=== PATIENT | male | born 1965 | race African-American/Black ===

== ENCOUNTER 2024-10-02 13:39 | Emergency (ER) | payer MEDICARE, SELFPAY ==
--- OUTSIDE RECORDS SUMMARY | 2024-08-11 14:40 | XMS_ITS | Encounter Summary ---
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 [address] [place] [address] Yi Arteaga APRN [address] [place] [address] Type 2 diabetes mellitus with other specified complication, unspecified whether jail insulin use (CMS/HCC) (Primary Dx); Neuropathy; Hypertension, unspecified type; Hyperlipidemia, unspecified hyperlipidemia type; Obesity (BMI 30-39.9) Social History Tobacco Use Types Packs/Day Years Used Date Smoking Tobacco: Never Passive Smoke Exposure: Never Smokeless Tobacco: Never Alcohol Use Standard Drinks/Week Comments Never 0 (1 standard drink = 0.6 oz pur e alcohol) social Humiliation, Afraid, Rape, and Kick questionnair e Answer Date Recorded Within the last year, have y ou been afraid of your partner or ex-partner? No 02/17/2023 Within the last year, have y ou been humiliated or emotionally abused in other ways by your partner or ex-partner? No Within the last year, have y ou been kicked, hit, slapped, or otherwise physically hurt by your partner or ex-partner? No 02/17/2023 Within the last year, have y ou been raped or forced to have any kind of sexual activity by your partner or ex-partner? No 02/17/2023 PHQ-2 Answer Date Recorded Patient Health Questionnaire-2 Score 1 08/11/2024 Hunger Vital Sign Answer Date Recorded Within the past 12 months, y ou worried that your food would run out before you got the money to buy more. Never true 02/18/20 23 Within the past 12 months, t he food you bought just didn't last and you didn't have money to get more. Never true 02/17/2023 PRAPARE - Transportation Answer Date Re corded In the past 12 months, has l ack of transportation kept you from medical appointments or from getting medications? No 02/05 In the past 12 months, has l ack of transportation kept you from meetings, work, or from getting things needed for daily living? No 02/17/2023 Housing Stability Vital Sign Answer Barry e Recorded In the last 12 months, was t here a time when you were not able to pay the mortgage or rent on time? No 02/17/2023 In the last 12 months, how many places have you lived? 1 02/17/2023 In the last 12 months, was t here a time when you did not have a steady place to sleep or slept in a penitentiary (including now)? No 02/17/2023 CAGE ASSESSMENT Answer Date Recorded Cage unable to access Not on file 02/13/2023 Cage max number of drinks Not on file 2022 Cage Beverages a week Not on file 02/13/2023 Have you ever felt you should CUT down on your d rinking? 0 02/13/2023 Have you been ANNOYED by people criticizing your drinking? 0 02/13/2023 Have you felt GUILTY about your drinking? 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 0 02/13/2023 CAGE Questionnaire Score 0 023 Utilities Answer Date Recorded In the past 12 months has th [employer], gas, oil, or water company threatened to shut off services in your home? No 02/17/2023 PHQ-2A Answer Date Recorded Patient Health Questionnaire-2 Score 0 02/25/2023 Sex and Gender Information Value Date Recorded Sex Assigned at Not on file Legal Sex Male 6:34 PM EDT Gender Identity Male 02/20/2022 1:39 PM EST Sexual Orientation Not on file documented as of this encounter Last Filed Vital Signs Vital Sign Reading Time Taken Comments Blood Pressure 121/82 08/11/2024 1:38 PM EDT Pulse 80 08/11/2024 1:38 PM EDT Temperature - - Respiratory Rate - - Oxygen Saturation - - Inhaled Oxygen Concentration - - Weight 119 kg (263 lb 3.7 oz) 08/11/2024 1:38 PM EDT Height 175.3 cm (5' 9 ) 08/11/2024 1:38 PM EDT Body Mass Index 38.87 08/11/2024 1:38 PM EDT documented in this encounter Functional Status * Over the past 2 weeks, how often have you been bothered by any of the following problems? Question Answer Date of Assessment Author Little interest or pleasure in doing things Not at all 08/11/2024 1:42 PM EDT Amaris Velasuqez Feeling down, depressed, or hopeless Several days 08/11/2024 1:42 PM EDT Amaris Velasquez Patient Health Questionnaire -2 Score 1 08/11/2024 1:42 PM EDT Amaris Velasquez documented as of this encounter Miscellaneous Notes * Patient Instructions - Yi Arteaga, BLOW MOLD TECHNICIAN - 08/11/2024 2:40 PM EDT Lab Results Component Value Date HGBA1C 9.6 08/11/2024 CHANGES: -start metformin 500mg tab taking 1 tab daily with food x 1 week, then increase to 1 tab twice a day with food - check blood glucose daily, alternating AM and PM, before meals - call the educators (number below) in 2 weeks with your readings or can send through my chart - call the diabetes education team with any questions or concerns [phone] * Progress Notes - Yi Arteaga APRN - 08/11/2024 2:40 PM EDT Subjective Darrin Vargas is a 58 y.o. AA male who presents to clinic for a follow up evaluation of Diabetes Mellitus Type 2. Patient was diagnosed with DM about 25 years ago. Current symptoms/problems includehyperglycemia. 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 Since RNY he was able to stop all DM meds and was following up with PCP, however, noticed BG has been r unning high A1c 9.6% today from 6.8% at last visit -> 9%-> 8.8% on 03/28/22 - not currently on any DM medications Previously failed DM therapy: DPP4/GLP: avoid due to history of pancreatitis, glipizide: reports lead to pancreatitis?, Jardiance: had several infections and was stopped in 2014; unsure of sequence of events. Metformin and Basaglar- stopped after RNY - checking glucose 1-2 times a day. States AM 120-130 and evening after eating 170-180 - has had LOC with lows x1 several years ago that required hospitalization. Reports hypoawareness is intact Known diabetic complications: peripheral neuropathy, impotence, and cardiovascular disease 01/29/24 Cr 1.17 and GFR 71.4 Cardiovascular risk factors: advanced age (older than 55 for men, 65 for women), diabetes mellitus,dyslipidemia, family history of premature cardiovascular disease, hypertension, male gender, and obesity (BMI >= 30 kg/m2) - lost 70-80# after RNY in 12/2022 Is he on REAL inhibitor or angiotensin II receptor inder? Yes Is he on a StatinYes + Ezetimibe 01/29/24 TRG 103, LDL 36 Current diet: stopped drinking regular green tea about 1.5 weeks ago. Diet remains to be healthier choices, more salads and proteins Current exercise: no regular exercise Date of Last Eye Exam: Mar 2024- denies retinopathy Date of Last Foot Exam: deferred today, denies open areas What current meter are you using?: Intelipost devyn What pump type do you have?: na What type of sensor do you have?: na When was your last flu shot?: fall 2023 When did you have labs last?: 08/2022 The following portions of the chart were reviewed this encounter and updated as appropriate: Review of Systems Constitutional: Negative. HENT: Negative. Eyes: Negative. Respiratory: Negative. Cardiovascular: Negative. Gastrointestinal: Negative. Endocrine: Negative. See hpi Musculoskeletal: Negative. Skin: Negative. Psychiatric/Behavioral: Negative. Objective Physical Exam Constitutional: Appearance: Normal appearance. He is obese. HENT: Head: Normocephalic. Right Ear: External ear normal. Left Ear: External ear normal. Nose: Nose normal. Cardiovascular: Rate and Rhythm: Normal rate. Pulmonary: Effort: Pulmonary effort is normal. Musculoskeletal: General: Normal range of motion. Cervical back: Normal range of motion. Skin: General: Skin is warm and dry. Neurological: Mental Status: He is alert and oriented to person, place, and time. Psychiatric: Mood and Affect: Mood normal. Behavior: Behavior normal. Thought Content: Thought content normal. Judgment: Judgment normal. Lab Review Glucose, Plasma (mg/dL) Date Value 01/29/2024 145 (H) 07/31/2023 123 (H) 03/20/2023 127 (H) POCT Hemoglobin A1C Date Value 08/11/2024 9.6 % 01/13/2023 6.8 10/17/2022 9.0 % Hemoglobin A1c (%) Date Value 01/29/2024 8.0 (H) 07/31/2023 7.0 (H) CO2, Plasma (mmol/L) Date Value 01/29/2024 25 07/31/2023 26 03/20/2023 26 BUN, Plasma (mg/dL) Date Value 01/29/2024 14 07/31/2023 11 03/20/2023 9 Creatinine, Plasma (mg/dL) Date Value 01/29/2024 1.17 07/31/2023 1.04 03/20/2023 1.00 Assessment/Plan Diabetes Mellitus Type 2, is uncontrolled. A1c 9.6% today - continue with improved dietary choices Rx changes: -start metformin 500mg tab taking 1 tab daily with food x 1 week, then increase to 1 tab twice a day with food - check blood glucose daily, alternating AM and PM, before meals - call the educators ([phone]) in 2 weeks with your readings or can send through my chart - encouraged to check blood glucose daily, alternating AM and PM, before meals - eye exam and labs utd - follow up 3 months for chronic care management of diabetes # Neuropathy -stable - no reported open areas - monofilament due at follow up - encouraged daily foot checks - encouraged good blood glucose control to reduce risk of complication # HTN -stable -continue antihypertensives per PCP # HLD -controlled -continue statin # Obesity -BMI: 38.87 from 43.63 -> 48.2 -encouraged healthy diabetic diet and exercise as tolerated for optimal glycemic control The patient received dietary education and exercise education because they have an above normal BMI. - follow up with weight loss clinic as scheduled The following Diabetes education was reviewed: [x]SBGM to evaluate dose needs []Insulin coverage with carbohydrate intake []Site rotation [x] Exercise impact on glucose levels []Driving safety related to diabetes []Sick day management []Ketone testing [x]Over treatment of hypoglycemia [x] Hypoglycemia management [x]Call-in line use []Insulin pump pros and cons []Sensor home use []Pump class offerings []Tiffany phenomena []Somogyi effect [] Alcohol related to diabetes []Benefits of written records []Pre-meal Bolusing [x]Daily foot care [x] Healthy diet and regular exercise []Long-term complications related to poor diabetes management [] Injection timing related to changes in activity/exercise I personally spent a total of 25 minutes on this encounter. This time includes face to face with patient, counseling and discussion and/or coordination of care. Electronically signed by: Yi Arteaga APRN [facility] [address] [facility] [place]. [address] PHONE [phone] FAX: [phone] documented in this encounter Plan of Treatment Upcoming Encounters Date Type Department Care Team (Late st Contact Info) Description 11/22/2024 9:20 AM EDT Office Visit [facility] [address] [place] [address] Yi Arteaga APRN [address] [facility] [address] [place] [address] 12/28/2024 4:00 PM EDT Office Visit [facility] [place] [address] [place] [address] Sasha Rico MD [address] [place] [address] Scheduled Referrals Name Type Priority Associated Diagnoses Orde r Schedule Follow Up [facility] Outpatient Referral Routine Type 2 diabetes mellitus with other specified complication, unspecified whether jail insulin use ([facility]) Expected: 11/11/2024 (Approximate), Expires: 09/11/2025 documented as of this encounter Procedures Procedure Name Priority Date/Time Associated Diagnosis Comments POCT GLYCOSYLATED HEMOGLOBIN (HGB A1C) Routine 08/11/2024 1:49 PM EDT Type 2 diabetes mellitus with other specified complication, unspecified whether jail insulin use ([facility]) documented in this encounter Results * (ABNORMAL) POCT glycosylated hemoglobin (Hb A1C) (08/11/2024 1:49 PM EDT) POCT Hemoglobin A1C 9.6 <5.7% Non-Diabet ic % [facility] Kit Lot Number [id number] [facility] Kit Expiration Date 06/03 [facility] Blood Venous blood specimen / Unknown 08/11/2024 1:49 PM EDT us Yi Arteaga BLOW MOLD TECHNICIAN POINT OF CARE TEST ENTER/E DIT ORDERABLES Final Result Performing Organization Address City/State/[facility] Co de Phone Number [facility] [address] [place] [address] documented in this encounter Visit Diagnoses Diagnosis Type 2 diabetes mellitus with other specified complication, 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)- Primary Neuropathy Mononeuritis of unspecified site Hypertension, unspecified type Hyperlipidemia, unspecified hyperlipidemia type Obesity (BMI 30-39.9) documented in this encounter Additional Health Concerns Assessment Noted Time A fall risk assessment has been complete d for the patient 01/29/2024 8:56 AM EDT A Body Mass Index follow-up plan has been documented for the patient 08/17/2024 12:57 PM EDT documented as of this encounter Care Teams Assembler Dielectric Heater Relationship Specialty Start Date End Date Francisco Javier Cooley MD [address] [place] [address] PCP - General 08/18/20 documented as of this encounter
[2024-10-02] VITALS (12 sets, daily range): BP systolic 127–171; BP diastolic 78–107; PULSE 60–89; RESP 11–20; TEMP 37.1–37.2; O2SAT 97–100; BMI 39.1
--- NOTE | 2024-10-02 13:43 | ECG_ITS ---
APPROVED REPORT Exam: Resting ECG HR:82 bpm ECG Measurements Heart Rate 82 AXES WY 175 P 49 QRSd 109 QRS -6 QT 387 T 9 QTc 425 Conclusion SINUS RHYTHM POSSIBLE ANTERIOR MYOCARDIAL INFARCTION , OF INDETERMINATE AGE [30 ms Q WAVE IN V3/V4, OR R < 0.2 mV IN V4] No STEMI Electronically signed by : GISELLA DESOUZA, 10/05/2024 02:29:22
--- NOTE | 2024-10-02 14:16 | XR_ITS ---
PROCEDURE INFORMATION: Exam: XR Chest Exam date and time: 10/02/2024 2:24 PM Age: 58 years old Clinical indication: Pain; Other: Cp; Prior surgery; Surgery date: 6+ months; Surgery type: 2016 defib; Additional info: Chest pain TECHNIQUE: Imaging protocol: Radiologic exam of the chest. Views: 1 view. COMPARISON: CR XR CHEST 2V 02/13/2024 4:48 PM FINDINGS: Tubes, catheters and devices: Transvenous pacemaker lead in the heart Lungs: Unremarkable. No consolidation. Pleural spaces: Unremarkable. No pleural effusion. No pneumothorax. Heart/Mediastinum: Stable cardiac silhouette Bones/joints: Degenerative changes in the left glenohumeral joint. Stable IMPRESSION: No acute findings. No focal consolidation
--- OUTSIDE RECORDS SUMMARY | 2024-10-02 14:21 | XMS_ITS | Encounter Summary ---
Author Organization [facility] Address [address] [place] [address] Care Team Providers Care Topline Beading Machine Tender Name Role Phone Francisco Javier Cooley MD Primary Care Provider [phone] Reason for Visit * Reason Onset Date Comments HCN Clinical Concern/Question 08/26/2024 Encounter Details Date Type Department Care Team ([facility] Contact Info) Description 08/26/2024 Telephone [facility] [address] [place] [address] Yi Arteaga L, DESIGN DRAFTSMAN [address] [facility] [address] [place] [address] HCN Clinical Concern/Question Social History Tobacco Use Types Packs/Day Years [...] place to sleep or slept in a retirement (including now)? 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 0 02/13/2023 CAGE Questionnaire Score 0 023 Utilities Answer Date Recorded In the past 12 months has th e [facility], gas, oil, or water company threatened to shut off services in your home? No 02/17/2023 PHQ-2A Answer Date Recorded Patient Health Questionnaire-2 Score 0 02/25/2023 Sex and Gender Information Value Date Recorded Sex Assigned at Not on file Legal Sex Male 6:34 PM EDT Gender Identity Male 02/20/2022 1:39 PM EST Sexual Orientation Not on file documented as of this encounter Miscellaneous Notes * Telephone Encounter - Samantha Baird - 08/26/2024 2:37 PM EDT Called pt back. Pt was wanting provider to know that in the past few weeks his blood sguars have been running ion the 100's and has only had one bs reading 240's. I let pt know will inform provider. Pt has been on a trial to determine if additional dm medication would be needed. * Telephone Encounter - Danica Gonzales - 08/26/2024 9:01 AM EDT Clinical Concern/Question Reason for Call: Patient asking to speak with clinical staff regarding last 2 weeks of glucose readings. Best contact number: [phone] (home) Optimal time of day to reach caller: ANYTIME Additional comments/information from caller: None Note: Please do not reply to this message. Follow-up communication and further actions as a result of this message need to be communicated with the patient directly, if the patient is not active onMyChart. If the patient is active on MyChart, they will receive notification of the communication/outcome via MyChart. documented in this encounter Plan of Treatment Upcoming Encounters Date Type Department Care Team (Late st Contact Info) Description 11/22/2024 9:20 AM EDT Office Visit [facility] End[facility] [address] [place] [address] Yi Arteaga, DESIGN DRAFTSMAN [address] [place] [address] 12/28/2024 4:00 PM EDT Office Visit [facility] [place] [address] [place] [address] Sasha Rico MD [address] [place] [id number] documented as of this encounter Visit Diagnoses Not on filedocumented in this encounter Additional Health Concerns Assessment Noted Time A fall risk assessment has been complete d for the patient 01/29/2024 8:56 AM EDT A Body Mass Index follow-up plan has been documented for the patient 08/17/2024 12:57 PM EDT documented as of this encounter Care Teams Topline Beading Machine Tender Relationship Specialty Start Date End Date Francisco Javier Cooley MD [address] [address] PCP - General 08/18/20 documented as of this encounter
--- OUTSIDE RECORDS SUMMARY | 2024-10-02 14:21 | XMS_ITS | Clinical Summary ---
Author Organization [facility] Address [address] [place] [address] Care Team Providers Care Statistical Machine Mechanic Name Role Phone Francisco Javier Cooley MD Primary Care Provider [phone] Allergies Active Allergy Reactions Criticality Noted Date Comments Penicillins Shortness of breath High 08/21/2015 Medications * This document contains information received from the source organization and may not represent a complete record from that organization. allopurinol (Zyloprim) 300 MG tablet Take 1 tablet (300 mg) by mouth 1 (one) time each day. Active gabapentin (Neurontin) 300 MG capsule Take 1 capsule (300 mg) by mouth every night. 022 Active losartan (Cozaar) 50 MG tablet Take 1 tablet (50 mg) by mouth 1 (one) time each day. 022 Active pravastatin (Pravachol) 80 MG tablet Take 1 tablet (80 mg) by mouth 1 (one) time each day in the evening. 022 Active tadalafil (Cialis) 5 MG tablet Take 1 tablet (5 mg) by mouth 1 (one) time each day. 017 Active ondansetron ODT (Zofran-ODT) 4 MG disintegrating tablet Take 1 tablet (4 mg) by mouth every 8 (eight) hours if needed for nausea or vomiting. 30 tablet 023 Active Additional Information Patient not taking.Reported on 01/29/2024 acetaminophen (Tylenol) 325 MG tablet Take 2 tablets (650 mg) by mouth every 6 (six) hours if needed (pain, temperature greater than 100.5F or 38.0 C). 100 tablet 023 Active HYDROcodone-aceta minophen ([place]) 5-325 MG tablet Take 1 tablet (5 mg of hydrocodone) by mouth every 4 (four) hours if needed for severe pain. 30 tablet 023 Active Additional Information Patient not taking.Reported on 01/29/2024 naloxone (Kloxxado) 8 mg/0.1 mL nasal spray 1. Give 1 spray in nostril for no/slow breathing or cannot wake after opioid use 2. Call 911 3. Repeat in other nostril if symptoms continue 1. Give 1 spray in nostril for no/slow breathing or cannot wake after opioid use 2. Call 911 3. Repeat in other nostril if symptoms continue 1 each 023 Active cyanocobalamin 1000 MCG tablet Take 1 tablet (1,000 mcg) by mouth 1 (one) time each day. Active sildenafil (Viagra) 100 MG tablet Take 1 tablet (100 mg) by mouth 1 (one) time each day if needed for erectile dysfunction. Active carvedilol (Coreg) 25 MG tablet Take 0.5 tablets (12.5 mg) by mouth 2 (two) times a day with meals. / tab BID 90 tablet 3 024 Active Eliquis 5 MG tablet Take 1 tablet (5 mg) by mouth 2 (two) times a day. Do not resume taking until 12/29/22 180 tablet 3 024 Active alprostadil-phent olamine-papaverin e (Trimix) 20-1-30 mcg-mg-mg/mL intracavernosal injection 0.1-0.5 mL by Intracavernosal route 1 (one) time each day if needed for erectile dysfunction. Active metFORMIN (Glucophage) 500 MG tabletIndications :Type 2 diabetes mellitus with other specified complication, unspecified whether care home insulin use (CMS/HCC) Take 1 tablet by mouth 2 times a day with meals. 180 tablet 3 025 08/11 Active sotalol (Betapace) 120 MG tabletIndications :Atrial fibrillation, unspecified type (CMS/HCC) Take 1 tablet by mouth 2 times a day. 180 tablet 025 11/29 Active ezetimibe (Zetia) 10 MG tablet TAKE ONE TABLET BY MOUTH EVERY DAY 60 tablet 025 Active ezetimibe (Zetia) 10 MG tablet TAKE ONE TABLET BY MOUTH EVERY DAY 60 tablet 025 09/15 Discontinued Active Problems Problem Noted Date Diagnosed Date Obesity (BMI 30-39.9) 08/17/2024 Encounter for post surgical wound check 04/24/19 24 Proteinuria 02/24/2023 02/24/2023 Abscess of abdominal wall 02/13/2023 History of Vlad-en-Y gastric bypass 01/07/2023 Neuropathy 10/17/2022 Tachycardia 09/10/2022 Obesity, Class III, BMI 40-49.9 (morbid obesity) 05/05/2018 ICD (implantable cardioverter-defibrillator) in place 06/10/2017 Hyperlipidemia 12/20/2016 Obesity, Class II, BMI 35-39.9 01/12/2016 1 04/26/2022 Diarrhea 12/22/2015 02/24/2023 Gastroenteritis 12/22/2015 02/24/2023 Ventricular fibrillation 11/03/2015 Cardiomyopathy 11/03/2015 Overview (02/24/2023): A. 2008 recorded catheterization at outside hospital with nonischemic cardiomyopathy B. [employer] ICD single-lead, 2009 Hypertension 11/03/2015 Overview (02/24/2023): Mulitfactorial Severe obstructive sleep apnea 11/03/2015 Overview (02/24/2023): CPAP at night Gastroesophageal reflux disease 11/03/2015 Anxiety 11/03/2015 02/24/2023 Depression 11/03/2015 02/24/2023 Dizziness 11/03/2015 02/24/2023 Erectile dysfunction of nonorganic origin 201502/24/2023 Hypogonadism in male 11/03/2015 02/24/2023 Low back pain 11/03/2015 02/24/2023 Renal insufficiency 11/03/2015 02/24/2023 Atrial fibrillation 11/03/2015 02/24/2023 Overview (02/24/2023): Paroxysmal atrial fibrillation A. Remotely commented to warfarin and sotalol therapy, relatively noncompliant. Fatigue 11/03/2015 02/24/2023 Type 2 diabetes mellitus with other specified co mplication 08/22/2015 Overview (02/24/2023): Hemoglobin A1c 11 Resolved Problems Problem Noted Date Diagnosed Date Resolved Date Sepsis 02/13/2023 02/18/2023 Other fatigue 01/30/2023 02/17/2023 History of sleeve gastrectomy 01/07/2023 02/17/2023 Abnormal stress test 11/05/2022 023 Hemoglobin A1C greater than 9%, indicating poor diabetic control 10/17/2022 02/17/2023 Hypertension 10/17/2022 02/17/2023 Morbid obesity 10/17/2022 02/17/2023 Longstanding persistent atrial fibrillation 06/12/2022 02/17/2023 Gout 03/28/2022 02/17/2023 Vitamin D deficiency 03/28/2022 023 Astigmatism of left eye 04/15/201702/05 Bilateral myopia 04/15/2017 02/17/2023 Bilateral presbyopia 04/15/2017 023 Nuclear sclerosis 04/15/2017 02/17/2023 Type 2 diabetes mellitus wit hout complication, with long-term current use of insulin 12/20/2016 02/24/2023 Encounters Date Type Department Care Team Description 09/15/2024 Refill [facility] [place] [address] [place] [address] Julia Morrison MD [facility] [place] [address] [place] [address] Sasha Rico MD Atrial fibrillation, unspecified type (CMS/HCC) 08/27/2024 Travel 08/26/2024 Telephone [facility] [address] [place] [address] Yi Arteaga APRN HCN Clinical Concern/Question 08/11/2024 2:40 PM EDT Office Visit [facility] [address] [place] [address] Yi Arteaga APRN Type 2 diabetes mellitus with other specified complication, unspecified whether care home insulin use (CMS/[facility]) (Primary Dx); Neuropathy; Hypertension, unspecified type; Hyperlipidemia, unspecified hyperlipidemia type; Obesity (BMI 30-39.9) 08/11/2024 Travel 08/04/2024 Travel 07/22/2024 Travel 07/19/2024 [facility] [place] [address] [facility], [address] [place] [address] Julia Morrison MD 07/12/2024 Telephone [facility] [address] [place] [address] Yi Arteaga APRN 07/08/2024 12:23 PM EDT - 07/08/2024 11:59 PM EDT Hospital Encounter Cardiac Imaging [address] [place] [address] ICD (implantable cardioverter-defibril lator) in place Discharge Disposition: Home or Self Care 07/08/2024 Travel from Last 3 Months Family History Medical History Relation Name Comments Diabetes type II Brother Will Cardiac disorder Father [place] Hug[place] Diabetes Father En Huger Cardiac disorder Mother Diabetes Other 1 Diabetes Other 2 Anesthesia problems Neg Hx Malig Hyperthermia Neg Hx Relation Name Status Comments Brother Will Father En Alicia Mother Other 1 Other 2 Social History Tobacco Use Types Packs/Day Years Used Date Smoking Tobacco: Never Passive Smoke Exposure: Never Smokeless Tobacco: Never Tobacco Cessation:Counseling Given: Yes Alcohol Use Standard Drinks/Week Comments Never 0 [...] place to sleep or slept in a residential (including now)? No 02/17/2023 CAGE ASSESSMENT Answer [...] drink first t ayala in the morning (EYE-INDUSTRIAL MACHINE OPERATOR) to steady your nerves or to get rid of a hangover? 0 02/13/2023 CAGE Questionnaire Score 0 023 Utilities Answer Date Recorded In the past 12 months has th e electric, gas, oil, or water company threatened to shut off services in your home? No 02/17/2023 PHQ-2A Answer Date Recorded Patient Health Questionnaire-2 Score 0 02/25/2023 Sex and Gender Information Value Date Recorded Sex Assigned at Not on file Legal Sex Male 6:34 PM EDT Gender Identity Male 02/20/2022 1:39 PM EST Sexual Orientation Not on file Last Filed Vital Signs Vital Sign Reading Time Taken Comments Blood Pressure 121/82 08/11/2024 1:38 PM EDT Pulse 80 08/11/2024 1:38 PM EDT Temperature 36.9 C (98.4 F) 04/11/2023 3:02 PM EST Respiratory Rate 16 01/29/2024 8:49 AM EDT Oxygen Saturation 99% 01/29/2024 8:49 AM EDT Inhaled Oxygen Concentration - - Weight 119 kg (263 lb 3.7 oz) 08/11/2024 1:38 PM EDT Height 175.3 cm (5' 9 ) 08/11/2024 1:38 PM EDT Body Mass Index 38.87 08/11/2024 1:38 PM EDT Plan of Treatment Upcoming Encounters Date Type Department Care Team (Late st Contact Info) Description 11/22/2024 9:20 AM EDT Office Visit [facility] [address] [place] [address] Yi Arteaga, BATTERY BUILDER [address] [place] [address] 12/28/2024 4:00 PM EDT Office Visit [facility] [place] [address] [place] [address] Sasha Rico MD [address] [place] [address] Health Maintenance Due Date Last Done Comments [facility]-/Child/Adol SDOH Screenings 1965 Diabetes: Dental Exam 10/21/1973 [facility]- SDOH Screenings 10/21/1981 [facility]-Adult SDOH Screenings 10/21/1981 CT Colonography 10/21/2008 Colonoscopy 10/21/2008 FIT-DNA 10/21/2008 FIT 10/21/2008 FOBT 10/21/2008 Sigmoidoscopy 10/21/2008 [facility]-Colorectal Cancer Screening 10/21/2008 [facility]-Zoster Vaccines (1 of 2) 10/21/2013 [id number] Vaccine (2 - 2023- season) 2023 01/23/2022 [facility]-Medicare Annual Wellness (AWV) 09/29/2024 09/30/2023 [facility]-Diabetes: Hemoglobin A1C 11/10/202410/2024, 01/29/2024, 07/31/2023, Additional history exists [facility]-Depression Screening 08/11/2025 08/11/2024 [facility]-DTaP,Tdap,and Td Vaccines (2 - Td or Tdap) 02/15/2034 02/16/2024 [facility]-RSV Vaccine: 60+ Years or (1 - 1-dose 75+ series) 10/21/2038 [facility]-Hepatitis A Vaccines Aged Out 02/12/2018 No longer eligible based on patient's age to complete this topic [facility]-HIV Screening Completed 06/29/2022 [facility]-Hepatitis C Screening Completed 06/29/2022, [facility]-Pneumococcal Vaccine: 50+ Years Completed 06/04/2023, 02/12/2018, 12/19/2015 [facility]-Influenza Vaccine Completed 01/30/2024 , 03/26/2023, 01/16/2022, Additional history exists [facility]-Obesity Intervention Completed 025, 01/29/2024, 10/21/2023, Additional history exists HPV Vaccines Aged Out No longer eligi ble based on patient's age to complete this topic [facility]-HIB Vaccines Aged Out No longer e ligible based on patient's age to complete this topic [facility]-IPV Vaccines Aged Out No longer e ligible based on patient's age to complete this topic [facility]-Rotavirus Vaccines Aged Out No lo nger eligible based on patient's age to complete this topic Medical Devices Implanted Type Area Tube Coverer Device Identifier Shelf Expiration Date Model / Serial / Lot Pacemaker Pacemaker Left: Chest Procedures Procedure Name Priority Date/Time Associated Diagnosis Comments POCT GLYCOSYLATED HEMOGLOBIN (HGB A1C) Routine 08/11/2024 1:49 PM EDT Type 2 diabetes mellitus with other specified complication, unspecified whether remote computer terminal operator insulin use (CMS/HCC) CARDIAC DEVICE CHECK - REMOTE - ICD Routine 07/08/2024 12:36 PM EDT 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 HEPATITIS C ANTIBODY - ED W/REFLEX TO HCV QUANT PCR STAT 06/29/2022 6:52 PM EDT HIV 1/2 ANTIBODY/ANTIGEN SCREEN WITH REFLEX TO HIV I/II DIFFERENTIATION STAT 06/29/2022 6:52 PM EDT from Last 3 Months or Most Recently Relevant to Health Maintenance Results * (ABNORMAL) POCT glycosylated hemoglobin (Hb A1C) (08/11/2024 1:49 PM EDT) POCT Hemoglobin A1C 9.6 <5.7% Non-Diabet ic % [facility] Kit Lot Number [id number] [facility] Kit Expiration Date 06/03 HEALTHCARE [facility] Blood Venous blood specimen / Unknown 08/11/2024 1:49 PM EDT Yi Arteaga APRN POINT OF CARE TEST ENTER/E DIT ORDERABLES Final Result [facility] [address] [place] [address] * CARDIAC DEVICE CHECK - REMOTE - ICD (07/08/2024 12:36 PM EDT) Intrinsic Sensing Amplitude 11.50 mV PACEART Impedance 410 Ohms PACEART DEVICE SHOCK IMPEDANCE 49 Ohms PACEART Anatomical Region Laterality Modality Other Narrative 07/08/2024 2:48 PM EDT Implantable cardiac defibrillator (ICD) remote interrogation. Device successfully sensing intrinsic cardiac events and marking appropriately. Available impedance values demonstrate stable trend within normal limits. Available lead capture thresholds measured without significant change. Adequate safety margin programmed in device permanent outputs. Battery discharge trend stable, appropriate given total time in service. EGMs reviewed against implant indication and diagnosis. Device Check DEVICE INFO Device type: Single chamber defibrillator Device company: [employer]. Device model: [employer] VR 1357 DEVICE CHECK Mode: VVI 40 Percent V paced: 0% Presenting rhythm: Regular intrinsic ventricular rhythm EVENTS No clinically relevant events. Result [facility] Leticia Taylor APRN CV IMPLANTABLE CARDIAC DEV ICE PROCEDURES Final Result * HIV 1 & 2 Antibody/Antigen Screen (06/29/2022 6:52 PM EDT) [facility] HIV 1 & 2 Antibody/Antigen Screen Non Reactive Non Reactive 06/29/2022 8:45 PM EDT [facility] Comment:Screening for HIV 1 & 2 antibodies, and P24 antigen is NONREACTIVE. No confirmatory testing is required. Blood Venous blood specimen / Unknown Venipuncture / Unknown 06/29/2022 6:52 PM EDT 06/29/2022 7:07 PM EDT Result [facility] Marco Crews MD LAB BLOOD ORDERABLES Fi nal Result Performing Organization Address City/[facility] Co de Phone Number [facility] [address] [place] [address] * Hepatitis C Antibody - ED (06/29/2022 6:52 PM EDT) [facility] Hepatitis C Antibody Negative Negative 06/29/2022 7:48 PM EDT [facility] Blood Venous blood specimen / Unknown Venipuncture / Unknown 06/29/2022 6:52 PM EDT 06/29/2022 7:07 PM EDT Result [facility] Marco Crews MD LAB BLOOD ORDERABLES Fi nal Result Performing Organization Address City/[facility]/ZIP Co de Phone Number [facility] [address] [place] [address] from Last 3 Months or Most Recently Relevant to Health Maintenance [place] [address] [place] [address] MEDICARE MEDICAID OUT OF STATE Advance Directives * Full Code (Latest Code Status on File) Date Activated Date Inactivated Comments 02/13/2023 12:38 PM 02/18/2023 5:53 PM Question Answer Comments Patient has decision-making capacity? Yes * Full Code Date Activated Date Inactivated Comments 02/13/2023 11:18 AM 02/13/2023 12:38 PM Question Answer Comments Patient has decision-making capacity? Yes * Full Code Date Activated Date Inactivated Comments 12/26/2022 5:26 PM 12/28/2022 1:54 PM Question Answer Comments Patient has decision-making capacity? Yes * Full Code Date Activated Date Inactivated Comments 11/21/2022 10:44 AM 11/21/2022 4:42 PM Question Answer Comments Patient has decision-making capacity? Yes Care Teams Statistical Machine Mechanic Relationship Specialty Start Date End Date Francisco Javier Cooley MD [address] [id number] [facility] - General 08/18/20
--- OUTSIDE RECORDS SUMMARY | 2024-10-02 14:21 | XMS_ITS | Encounter Summary ---
Author Organization [facility] Address [address] [place] [address] Care Team Providers Care Hop Weigher Name Role Phone Francisco Javier Cooley MD Primary Care Provider [phone] Encounter Details Date Type Department Care Team (Latest Contact Info) Description 08/27/2024 Travel Social History Tobacco Use Types Packs/Day Years [...] money to buy more. Never true 02/18/20 Within the past 12 months, t he [...] place to sleep or slept in a group home (including now)? No 02/17/2023 CAGE ASSESSMENT Answer [...] drink first t ayala in the morning (EYE-MATERIALS ANALYST) to steady your nerves or to get [...] on file documented as of this encounter Plan of Treatment Upcoming Encounters Date Type Department Care Team (Late st Contact Info) Description 11/22/2024 9:20 AM EDT Office Visit [facility] [place] [address] Yi Arteaga, PROCESS CHECKER [address] [facility] [address] [place] [address] 12/28/2024 4:00 PM EDT Office Visit [facility] [place] [address] [place] [address] Sasha Rico MD [address] [place] [address] documented as of this encounter Visit Diagnoses Not on filedocumented in this encounter Additional Health Concerns Assessment Noted Time A fall risk assessment has been complete d for the patient 01/29/2024 8:56 AM EDT A Body Mass Index follow-up plan has been documented for the patient 08/17/2024 12:57 PM EDT documented as of this encounter Care Teams Hop Weigher Relationship Specialty Start Date End Date Francisco Javier Cooley MD [address] [facility] [address] [place] [address] PCP - General 08/18/20 documented as of this encounter
--- OUTSIDE RECORDS SUMMARY | 2024-10-02 14:21 | XMS_ITS | Encounter Summary ---
Author Organization [facility] Address [address] [place] [address] Care Team Providers Care Meter Repairer Name Role Phone Francisco Javier Cooley MD Primary Care Provider [phone] Reason for Visit * Reason Comments Med Refill Encounter Details Date Type Department Care Team ([facility] st Contact Info) Description 09/15/2024 Refill [facility] [place] [address], [address] [place] [address] Julia Morrison MD [address] [place] [address] Social History Tobacco Use Types Packs/Day Years [...] place to sleep or slept in a longterm (including now)? No 02/17/2023 CAGE ASSESSMENT Answer [...] drink first t ayala in the morning (EYE-UNIT ASSISTANT) to steady your nerves or to get [...] Description 11/22/2024 9:20 AM EDT Office Visit [facility] [address] [place] [phone] Yi Arteaga, CASH APPLICATIONS ANALYST [address] [facility] [address] [place] [address] 12/28/2024 4:00 PM EDT Office Visit [facility] [place] [address] [place] [address] Sasha Rico MD [address] [place] [address] documented as of this encounter Visit Diagnoses Not on filedocumented in this encounter Additional Health Concerns Assessment Noted Time A fall risk assessment has been complete d for the patient 01/29/2024 8:56 AM EDT A Body Mass Index follow-up plan has been documented for the patient 08/17/2024 12:57 PM EDT documented as of this encounter Care Teams Meter Repairer Relationship Specialty Start Date End Date Francisco Javier Cooley MD [address] [facility] [address] [place] [address] PCP - General 08/18/20 documented as of this encounter
--- OUTSIDE RECORDS SUMMARY | 2024-10-02 14:21 | XMS_ITS | Encounter Summary ---
Author Organization [facility] Address [address] [place] [address] Care Team Providers Care Fountain Worker Name Role Phone Francisco Javier Cooley MD Primary Care Provider [phone] Encounter Details Date Type Department Care Team (Latest Contact Info) Description 08/04/2024 Travel Social History Tobacco Use Types Packs/Day [...] Date Recorded Patient Health Questionnaire-2 Score 0 01/29/2024 Hunger Vital Sign Answer Date Recorded Within [...] place to sleep or slept in a nursing home (including now)? No 02/17/2023 CAGE ASSESSMENT [...] drink first t ayala in the morning (EYE-DATABASE DBA) to steady your nerves or to get [...] Description 11/22/2024 9:20 AM EDT Office Visit [facility] Count includes [facility] [place] [address] Yi Arteaga, PROJECT SYSTEMS ENGINEER [address] [facility] [address] [place] [address] 12/28/2024 4:00 PM EDT Office Visit [facility] [place] [address] [place] [address] Sasha Rico MD [address] [place] [address] documented as of this encounter Visit Diagnoses Not on filedocumented in this encounter Additional Health Concerns Assessment Noted Time A fall risk assessment has been complete d for the patient 01/29/2024 8:56 AM EDT A Body Mass Index follow-up plan has been documented for the patient 01/29/2024 3:22 PM EDT documented as of this encounter Care Teams Fountain Worker Relationship Specialty Start Date End Date Francisco Javier Cooley MD [address] [facility] [address] [place] [address] PCP - General 08/18/20 documented as of this encounter
--- OUTSIDE RECORDS SUMMARY | 2024-10-02 14:21 | XMS_ITS | Encounter Summary ---
Author Organization [facility] Address [address] [place] [address] Care Team Providers Care Facepiece Line Supervisor Name Role Phone Francisco Javier Cooley MD Primary Care Provider [phone] Reason for Visit * Reason Onset Date Comments Med Refill 08/31/2024 Encounter Details Date Type Department Care Team (Late st Contact Info) Description 08/31/2024 Refill [facility] [place] [address] [place] [address] Sasha Rico MD [address] [place] [address] Atrial fibrillation, unspecified type (CMS/HCC) Social History Tobacco Use Types Packs/Day Years [...] place to sleep or slept in a half-way (including now)? No 02/17/2023 CAGE ASSESSMENT Answer [...] drink first t ayala in the morning (EYE-FLOOR PRESS OPERATOR) to steady your nerves or to [...] encounter Miscellaneous Notes * Telephone Encounter - Sindy Romeo RN - 08/31/2024 3:38 PM EDT Sotalol refill sent to patient's pharmacy. Patient has a follow up with Dr. Rico scheduled for 12/28/24. documented in this encounter Plan of Treatment Upcoming Encounters Date Type Department Care Team (Late st Contact Info) Description 11/22/2024 9:20 AM EDT [facility] [address] [place] [address] Yi Arteaga, AUTO SERVICE REPRESENTATIVE [address] [facility] [address] [place] [address] 12/28/2024 4:00 PM EDT Office Visit [facility] [place] [address] [place] [address] Sasha Rico MD [address] [place] [address] documented as of this encounter Visit Diagnoses Diagnosis Atrial fibrillation, unspecified type (CMS/HCC) documented in this encounter Additional Health Concerns Assessment Noted Time A fall risk assessment has been complete d for the patient 01/29/2024 8:56 AM EDT A Body Mass Index follow-up plan has been documented for the patient 08/17/2024 12:57 PM EDT documented as of this encounter Care Teams Facepiece Line Supervisor Relationship Specialty Start Date End Date Francisco Javier Cooley MD [address] [facility] [address] [place] [address] PCP - General 08/18/20 documented as of this encounter
--- OUTSIDE RECORDS SUMMARY | 2024-10-02 14:21 | XMS_ITS | Encounter Summary ---
Author Organization [facility] Address [address] [place] [address] Care Team Providers Care Manager Of Product Name Role Phone Francisco Javier Cooley MD Primary Care Provider [phone] Reason for Referral * Consultation (Routine) - Closed Specialty Diagnoses / Procedures Referred By Contac t Referred To Contact Cardiology Diagnoses Longstanding persistent atrial fibrillation (CMS/HCC) Francisco Javier Cooley MD [address] [facility] [address] [place] [address] Phone: tel: fax: Referral ID Status Reason Start Date Expiration Date V isits Requested Visits Authorized [id number] Closed Specialty Services Required 12/31/2021 07/02/2023 1 1 Encounter Details Date Type Department Care Team (Late st Contact Info) Description 12/31/2021 [facility] [address] [place] [phone] Francisco Javier Cooley MD [address] [facility] [address] [place] [address] Longstanding persistent atrial fibrillation (CMS/HCC) (Primary Dx) Social History Tobacco Use Types Packs/Day Years Used Date Smoking Tobacco: Never Alcohol Use Standard Drinks/Week Comments No 0 (1 standard drink = 0.6 oz pur e alcohol) Sex and Gender Information Value Date Recorded Sex Assigned at Not on file Legal Sex Male 6:34 PM EDT Gender Identity Male 02/20/2022 1:39 PM EST Sexual Orientation Not on file COVID-19 Exposure Response Date Recorded In the last 10 days, have yo u been in contact with someone who was confirmed or suspected to have Coronavirus/COVID-19? No / Unsure 01/01/2022 12:53 PM EDT documented as of this encounter Plan of Treatment Upcoming Encounters Date Type Department Care Team (Late st Contact Info) Description 11/22/2024 9:20 AM EDT Office Visit [facility] Endocrinology [address] [place] [phone] Yi Arteaga, KNOT PICKER CLOTH [address] [place] [address] 12/28/2024 4:00 PM EDT Office Visit [facility] [address] [place] [address] Sasha Rico MD [address] [place] [phone] Scheduled Referrals Name Type Priority Associated Diagnoses Orde r Schedule Ambulatory referral to Cardiology Outpatient Referral Routine Longstanding persistent atrial fibrillation (CMS/HCC) Expected: 12/31/2021 (Approximate), Expires: 07/01/2023 documented as of this encounter Visit Diagnoses Diagnosis Longstanding persistent atrial fibrillation (CMS/HCC)- Primary documented in this encounter Additional Health Concerns Infection Onset Date Last Indicated Resolved Time COVID-19 Rule-Out 02/13/2023 02/13/2023 02/13/2023 11:55 AM EST documented as of this encounter Care Teams Manager Of Product Relationship Specialty Start Date End Date Francisco Javier Cooley MD [address] [facility] [address] [place] [address] PCP - General 08/18/20 documented as of this encounter
--- OUTSIDE RECORDS SUMMARY | 2024-10-02 14:21 | XMS_ITS | Encounter Summary ---
Author Organization [facility] Address [address] [place] [address] Care Team Providers Care Scrap Burner Name Role Phone Francisco Javier Cooley MD Primary Care Provider [phone] Encounter Details Date Type Department Care Team (Latest Contact Info) Description 08/11/2024 Travel Social History Tobacco Use Types Packs/Day [...] drink first t ayala in the morning (EYE-BRAZER RESISTANCE) to steady your nerves or to get rid of a hangover? 0 02/13/2023 CAGE Questionnaire Score 0 023 Utilities Answer Date Recorded In the past 12 months has th e Cumed, gas, oil, or water company threatened to shut off services in your home? No 02/17/2023 PHQ-2A Answer Date Recorded Patient Health Questionnaire-2 Score 0 02/25/2023 Sex and Gender Information Value Date Recorded Sex Assigned at Not on file Legal Sex Male 6:34 PM EDT Gender Identity Male 02/20/2022 1:39 PM EST Sexual Orientation Not on file documented as of this encounter Functional Status * Over the past 2 weeks, how often have you been bothered by any of the following problems? Question Answer Date of Assessment Author Little interest or pleasure in doing things Not at all 08/11/2024 1:42 PM EDT Amaris Velasquez Feeling down, depressed, or hopeless Several days 08/11/2024 1:42 PM EDT Amaris Velasquez Patient Health Questionnaire -2 Score 1 08/11/2024 1:42 PM EDT Amaris Velasquez documented as of this encounter Plan of Treatment Upcoming Encounters Date Type Department Care Team (Late st Contact Info) Description 11/22/2024 9:20 AM EDT Office Visit [facility] Endocrinology [address] [place] [address] Yi Arteaga, TUFTING CREELER [address] [facility] [address] [place] [phone] 12/28/2024 4:00 PM EDT Office Visit [facility] [address] [place] [address] Sasha Rico MD [address] [place] [address] documented as of this encounter Visit Diagnoses Not on filedocumented in this encounter Additional Health Concerns Assessment Noted Time A fall risk assessment has been complete d for the patient 01/29/2024 8:56 AM EDT A Body Mass Index follow-up plan has been documented for the patient 08/17/2024 12:57 PM EDT documented as of this encounter Care Teams Scrap Burner Relationship Specialty Start Date End Date Francisco Javier Cooley MD [address] [facility] [address] [place] [address] PCP - General 08/18/20 documented as of this encounter
[2024-10-02 14:24] LABS: Basophils # 0.1 K/mm3 (0-0.2); Basophils % 0.8 % (0.1-2.0); Eosinophils # 0.1 Kmm3 (0.0-0.4); Eosinophils % 2.1 % (0.1-12.0); Hematocrit 44.1 % (42.0-52.0); Hemoglobin 14.8 g/dL (14.1-18.0); Immature Granulocytes # 0.02 10^3uL; Immature Granulocytes % 0.3 %; Lymphocytes # 1.9 K/mm3 (0.7-4.5); Mean Corpuscular HGB Conc 33.6 g/dL (31.8-35.4); Mean Corpuscular Hemoglobin 30.6 pg (27.0-31.2); Mean Corpuscular Volume 91.1 fl (80-94); Mean Platelet Volume 12.3 fl (7.4-10.4); Monocytes # 0.5 K/mm3 (0.1-1.0); Monocytes % 7.1 % (1.7-9.3); Neutrophils # 4.1 K/mm3 (1.8-7.8); Neutrophils % 61.7 % (37.0-80.0); Nucleated Red Blood Cells # 0 10^3/uL; Nucleated Red Blood Cells % 0 %; Platelet Count 174 K/mm3 (142-424); Red Blood Count 4.84 M/mm3 (4.60-6.20); Red Cell Distribution Width 14.9 % (11.5-17.5); Red Cell Distribution Width-SD 49.5 fL; White Blood Count 6.7 K/mm3 (4.8-10.8)
[2024-10-02 14:45] LABS: Albumin Level 4.5 g/dl (3.5-5.0); Chloride 108 mmol/L (98-107); Sodium 142 mmol/L (136-145)
[2024-10-02 14:46] LABS: Potassium 5.2 mmoL/L (3.5-5.1)
[2024-10-02 14:48] LABS: Alanine Aminotransferase 25 U/L (12-78); Albumin/Globulin Ratio 1.3 (1.1-1.8); Alkaline Phosphatase 69 U/L (38-126); Anion Gap 16.2 mEq/L (5-15); Aspartate Amino Transferase 33 U/L (17-59); Bilirubin,Total 0.8 mg/dl (0.2-1.3); Blood Urea Nitrogen 20 mg/dl (9-20); Calcium 9.7 mg/dl (8.4-10.2); Carbon Dioxide 23 mmol/L (22.0-30.0); Creatinine Clearance Estimated 111 mL/min (50-200); Estimated Glomerular Filt Rate 62 ml/min (>60); GFR (African American) 75 ML/MIN (>60); Globulin 3.4 g/dL (1.3-3.2); Glucose 175 mg/dl (74-100); Total Protein,Serum 7.9 g/dl (6.3-8.2)
[2024-10-02 15:03] LABS: Troponin I 0.01 ng/ml (0.00-0.034)
--- NOTE | 2024-10-02 15:26 | ED_ITS ---
<Statement entered by Amy Owens MD - 10/05/24 16:03> I was consulted by the VONNIE, and we discussed the complexity of the problems being addressed. I approved the treatment and management plan for this patient's care in the emergency department, thus performing a substantive portion of the medical decision making. Amy Owens MD, BENJIE, FACEP Discharge Plan Disposition Patient Disposition: Home, Self-Care Condition: Good Prescriptions Prescriptions: No Action losartan 50 mg tablet 50 mg PO DAILY Patient Comments: TAKE ONE TABLET BY MOUTH EVERY DAY metformin 500 mg tablet 500 mg PO BID Patient Comments: TAKE ONE TABLET BY MOUTH TWICE DAILY with meals sotalol 120 mg tablet 120 mg PO BID Patient Comments: TAKE ONE TABLET BY MOUTH TWICE DAILY pravastatin 80 mg tablet 80 mg PO DAILY Patient Comments: TAKE ONE TABLET BY MOUTH EVERY EVENING gabapentin 300 mg capsule 300 mg PO TID Patient Comments: TAKE ONE CAPSULE BY MOUTH THREE TIMES DAILY MAY CAUSE DROWSINESS allopurinol 300 mg tablet 300 mg PO DAILY Patient Comments: TAKE ONE TABLET BY MOUTH EVERY DAY ezetimibe 10 mg tablet 10 mg PO DAILY Patient Comments: TAKE ONE TABLET BY MOUTH EVERY DAY Eliquis 5 mg tablet 5 mg PO BID Patient Comments: TAKE ONE TABLET BY MOUTH TWICE DAILY Referrals Follow up/Referrals: Francisco Javier Cooley [Primary Care Provider, Medical] - See instructions Angel Dhaliwal MD [Staff Physician, Cardiology] - See instructions Activity Restrictions/Add. Instructions Additional Instructions/Restrictions: Please follow-up with your PCP and conduit installer in the upcoming days/weeks, please return to the emergency department any worsening signs or symptoms including worsening chest pain shortness of breath. Please continue take all your medications as prescribed. Clinical Impressions Clinical Impression: Chest pain, Hyperkalemia Instructions Patient Instructions: DI for Chest Pain Print Language Print Language: Sammarinese Discharge ED Provider: Abram Mccallum HPI General Chief Complaint: Chest Pain Stated Complaint: chest pain Time Seen by Provider: 10/02/24 13:52 Mode of Arrival: EMS Source of Information: Patient and EMS Description of Symptoms (Recalled from ER Triage Doc. by RN): Patient presents to ED via EMS, reports he was shopping at [employer] when he started to have mid-sternal chest pain. Denies ant additional symptoms at this time. Notes cardiac hx. 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 History of Present Illness HPI narrative: 58-year-old male presents to the emergency department via EMS from [facility] with midsternal chest pain, nonradiating, patient was given ASA 324 mg p.o, route, chest pain around 12 PM, patient just got done mowing outside , initially chest pain was a 5 out of 10, currently a 2 out of 10 at the bedside, no shortness of breath, no nausea no vomiting no abdominal pain, no fever no chills no cough no congestion, denies any urinary type symptomatology, denies any constipation diarrhea, patient's other past medical history consistent with hyperlipidemia, atrial fibrillation, hypertension, gout, ICD implanted, type 2 diabetes, previous history of gastric bypass several years ago, patient is on rate control with sotalol, anticoagulation therapy with Eliquis. Initial triage vitals are unremarkable, patient is a non-smoker, denies any alcohol or drug use. Related Data Home Medications ?Medication ?Instructions ?Recorded ?Confirmed allopurinol 300 mg tablet 300 mg PO DAILY 10/02/24 apixaban 5 mg tablet (Eliquis) 5 mg PO BID 10/02/24 ezetimibe 10 mg tablet 10 mg PO DAILY 10/02/2409/06 gabapentin 300 mg capsule 300 mg PO TID 10/02/2410/02 losartan 50 mg tablet 50 mg PO DAILY 10/02/2409/06 metformin 500 mg tablet 500 mg PO BID 10/02/2410/02 pravastatin 80 mg tablet 80 mg PO DAILY 10/02/2409/06 sotalol 120 mg tablet 120 mg PO BID 10/02/2410/02 Allergies Allergy/AdvReac Type Severity Reaction Status Date / Time Penicillins Allergy Intermediate Rash Verified 10/02/24 14:15 [facility] Disclaimer: The information contained in this section may have been updated after the patient was seen, as this information can be updated by other users. Social History Smoking Status: Never smoker alcohol intake: never current occupational status: other Travel in the last 8 weeks?: None ROS Obtained: Yes All systems reviewed & no additional complaints except as documented Physical Exam General General appearance: alert and in no apparent distress Comment: Somewhat of flat affect Head Head exam: atraumatic and normocephalic Eye Eye exam: Present normal appearance, PERRL and EOMI Neck Neck exam: Present full ROM; Absent meningismus Chest Chest inspection: Present normal inspection Respiratory Respiratory exam: Absent respiratory distress, wheezes, stridor, accessory muscle use or prolonged expiratory phase Cardiovascular Cardiovascular exam: Present normal rhythm and other (Pulses equal and symmetric in bilateral upper and lower extremities) Abdominal Exam Abdominal exam: Absent distention, tenderness or guarding Extremities Exam Extremities exam: Absent edema Neurological Exam Neurological exam: Present alert Psychiatric Psychiatric exam: Present normal affect Skin Skin exam: Present warm and dry HEART Score HEART Score HEART Score assessment performed?: Yes History (anamnesis): Slightly suspicious ECG: Non-specific disturbance Age: 45-65 years Risk factors: 1-2 risk factors Troponin: </= normal limit HEART Score: 3 Critical Care Critical Care Time Critical Care Time: No Medical Decision Making Medical Records Medical records reviewed: Yes I reviewed the patient's medical records. [place] Inquiry Pt receiving controlled substance: No Vital Signs Vital Signs: 10/02/24 13:46 10/02/24 13:53 10/02/24 14:00 Temperature 98.9 F Temperature Source Oral Pulse Rate 84 82 Pulse Rate [Left] 82 Respiratory Rate 19 16 20 Blood Pressure 129/80 Blood Pressure [Right Arm] 127/84 Blood Pressure Mean Blood Pressure Mean [Right Arm] 98 Blood Pressure Source [Right Arm] Automatic Cuff 02 Sat by Pulse Oximetry 98 98 98 Oxygen Delivery Method Room Air Room Air 10/02/24 14:15 10/02/24 14:30 10/02/24 15:00 Temperature Temperature Source Pulse Rate 77 72 64 Pulse Rate [Left] Respiratory Rate 11 L 14 18 Blood Pressure 135/84 150/93 H Blood Pressure [Right Arm] Blood Pressure Mean 104 Blood Pressure Mean [Right Arm] Blood Pressure Source [Right Arm] 02 Sat by Pulse Oximetry 98 97 97 Oxygen Delivery Method Room Air Room Air 10/02/24 15:30 10/02/24 16:00 10/02/24 16:31 Temperature Temperature Source Pulse Rate 68 69 69 Pulse Rate [Left] Respiratory Rate 18 18 14 Blood Pressure 158/96 H 155/107 H Blood Pressure [Right Arm] Blood Pressure Mean 132 Blood Pressure Mean [Right Arm] Blood Pressure Source [Right Arm] 02 Sat by Pulse Oximetry 98 98 99 Oxygen Delivery Method Room Air Room Air 10/02/24 17:00 Temperature Temperature Source Pulse Rate 60 Pulse Rate [Left] Respiratory Rate 17 Blood Pressure 148/103 H Blood Pressure [Right Arm] Blood Pressure Mean 122 Blood Pressure Mean [Right Arm] Blood Pressure Source [Right Arm] 02 Sat by Pulse Oximetry 100 Oxygen Delivery Method Room Air Lab Data Lab results reviewed: Yes I reviewed the patient's lab results. Labs: Lab Results 10/02/24 13:41: WBC 6.7, RBC 4.84, Hgb 14.8, Hct 44.1, MCV 91.1, MCH 30.6, MCHC 33.6, RDW 14.9, Plt Count 174, MPV 12.3 H, Neut % (Auto) 61.7, Lymph % (Auto) 28.0, [place] % (Auto) 7.1, Eos % (Auto) 2.1, Baso % (Auto) 0.8, Neut # (Auto) 4.1, Lymph # (Auto) 1.9, [place] # (Auto) 0.5, Eos # (Auto) 0.1, Baso # (Auto) 0.1, Sodium 142, Potassium 5.2 H, Chloride 108 H, Carbon Dioxide 23, Anion Gap 16.2 H , BUN 20, Creatinine 1.20, Estimated Creat Clear 111, Estimated GFR 62, Est GFR ( Amer) 75, Glucose 175 H, Calcium 9.7, Total Bilirubin 0.8, AST 33, ALT 25, Alkaline Phosphatase 69, Troponin I 0.01, NT-Pro-B Natriuret Pep 283 H, Total Protein 7.9, Albumin 4.5, Globulin 3.4 H, Albumin/Globulin Ratio 1.3 10/02/24 15:36: Potassium 5.4 H 10/02/24 16:43: Troponin I 0.01 10/02/24 13:41 10/02/24 15:36 Response Orders (Tests/Meds): ORDERS Category Date Time Status XR chest portable Stat Exams 10/02/24 14:16 Completed Complete Blood Count Auto Diff Stat Lab 10/02/24 13:41 Completed Comprehensive Metabolic Panel Stat Lab 10/02/24 13:41 Completed NT Pro Brain Natriuretic Pep. Stat Lab 10/02/24 13:41 Completed Potassium Stat Lab 10/02/24 15:36 Completed Troponin I Q3H Lab 10/02/24 16:43 Completed Troponin I Q3H Lab 10/02/24 20:30 Ordered Troponin I Stat Lab 10/02/24 13:41 Completed MDM Narrative Medical Decision Narrative: 58-year-old male presents the emergency department with chest pain/chest discomfort, differential diagnose include but not limited, ACS, cardiac arrhythmia, electrolyte disturbance, costochondritis, pneumothorax, pneumonia, among others. I discussed patient case with attending physician Dr.. Owens Will obtain basic laboratory studies, CXR, troponin, proBNP, CBC is within normal limits Potassium 5.2, initial troponin 0.01, otherwise unremarkable CMP. BNP is mildly elevated at 283. I reviewed the patient's chest x-ray along with corresponding radiologic report, no acute findings, no focal consolidation. Repeat potassium is 5.4. Repeat troponin is 0.01. Heart score 3, regarding hyperkalemia, patient will be given 10 g of p.o. Lokelma, instructed to follow-up with his PCP, patient was instructed to follow- up, patient's chest pain is currently 0 out of 10/1 out of 10, patient is cleared to be discharged home to self-care, patient will follow-up with his conduit installer as directed, and return to emergency with any worsening signs or symptoms. Patient family voiced understanding and are in agreement with current treatment plan/discharge plan. Patient has remained hemodynamically stable throughout his time in the emergency department.
[2024-10-02 15:51] LABS: NT Pro Brain Natriuretic Pep. 283 pg/mL (0-125)
[2024-10-02 16:06] LABS: Potassium 5.4 mmoL/L (3.5-5.1)
[2024-10-02 17:20] LABS: Troponin I 0.01 ng/ml (0.00-0.034)
[2024-10-02] MEDS: LOKELMA 5GM PACKET 10 GM PO (17:51)
== END 2024-10-02 18:00 | disposition home or self-care (01) ==
PROVIDERS: Physician Assistant; Student in an Organized Health Care Education/Training Program; Emergency Provider Emergency Medicine; PCP Pediatrics
DX: R07.9 Chest pain, unspecified (principal); E87.5 Hyperkalemia; E11.9 Type 2 diabetes mellitus without complications; I10 Essential (primary) hypertension; E78.5 Hyperlipidemia, unspecified; Z95.810 Presence of automatic (implantable) cardiac defibrillator
CPT/HCPCS: 71045; 80053; 83880; 84132; 84484; 85025; 93005; 99284

== ENCOUNTER 2025-01-19 09:36 | Outpatient (CLI) | payer MEDICARE, SELFPAY ==
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
--- OUTSIDE RECORDS SUMMARY | 2024-12-02 11:00 | XMS_ITS | Encounter Summary ---
Author Organization Address [address] [place] [address] Care Team Providers Care [employer] Worker Name Role Phone Francisco Javier Cooley MD Primary Care Provider [phone] Reason for Visit * Reason Comments Obesity Encounter Details Date Type Department Care Team (Late st Contact Info) Description 12/02/2024 11:00 AM EDT Office Visit [facility] General & Weight Loss Surgery [address] [place] [address] Angel Avila MD [address] [address] History of Vlad-en-Y gastric bypass (Primary Dx); Type 2 diabetes mellitus without complication, without long-term current use of insulin Social History Tobacco Use Types Packs/Day Years [...] Date Recorded Patient Health Questionnaire-2 Score 1 12/02/2024 Hunger Vital Sign Answer Date Recorded Within [...] in a longterm (including now)? No 02/17/2023 PHQ-9 Answer Date Recorded Patient Health Questionnaire-9 Score 6 12/02/2024 CAGE ASSESSMENT Answer Date Recorded Cage unable [...] drink first t ayala in the morning (EYE-CLINICAL LIAISON) to steady your nerves or to get [...] Sign Reading Time Taken Comments Blood Pressure 117/81 12/02/2024 10:53 AM EDT Pulse 68 12/02/2024 10:53 AM EDT Temperature - - Respiratory Rate 16 12/02/2024 10:53 AM EDT Oxygen Saturation 99% 12/02/2024 10:53 AM EDT Inhaled Oxygen Concentration - - Weight 112 kg (247 lb) 12/02/2024 10:53 AM EDT Height 175.3 cm (5' 9 ) 12/02/2024 10:53 AM EDT Body Mass Index 36.48 12/02/2024 10:53 AM EDT documented in this encounter Functional Status * Over the past 2 weeks, how often have you been bothered by any of the following problems? Question Answer Date of Assessment Author Little interest or pleasure in doing things Not at all 12/02/2024 10:55 AM EDT Shanta Simpson Feeling down, depressed, or hopeless Several days 12/02/2024 10:55 AM EDT Shanta Alejandro Patient Health Questionnaire-2 Score 1 12/02/2024 10:55 AM EDT Shanta Harper * Question Answer Date of Assessment Author Trouble falling or staying asleep, or sleeping too much Several days 12/02/2024 10:55 AM EDT Shanta Alejandro Feeling tired or having little energy Several days 12/02/2024 10:55 AM EDT Shanta Alejandro Poor appetite or overeating Several days 12/02/2024 10 :55 AM EDT Shanta Alejandro Feeling bad about yourself - or that you are a failure or have let yourself or your family down Several days 12/02/2024 10:55 AM EDT Shanta Alejandro Trouble concentrating on things, such as reading the newspaper or watching television Several days 12/02/2024 10:55 AM EDT Shanta Alejandro Moving or speaking so slowly that other people could have noticed? Or the opposite - being so fidgety or restless that you have been moving around a lot more than usual. Not at all 12/02/2024 10:55 AM EDT Shanta Alejandro Thoughts that you would be better off or hurting yourself in some way Not at all 12/02/2024 10:55 AM EDT Shanta Alejandro Patient Health Questionnaire-9 Score 6 12/02/2024 10:55 AM EDT Shanta Harper * Calculated C-SSRS Risk Score (Lifetime/Recent) Answer Date of Assessment Author No Risk Indicated 12/02/2024 10:54 AM EDT Shanta Espinoza * How difficult have these problems made it for you to do your work, take care of things at home, or get along with other people? Answer Date of Assessment Author Not difficult at all 12/02/2024 10:55 AM EDT Shanta Ervin * How difficult have these problems made it for you to do your work, take care of things at home, or get along with other people? Answer Date of Assessment Author Not difficult at all 12/02/2024 10:55 AM EDT Shanta Ervin * Question Answer Date of Assessment Author 1. Wish to be (Past 1 Month) No 12/02/2024 10:54 AM EDT Shanta Alejandro 2. Non-Specific Active Suicidal Thoughts (Past 1 Month) No 12/02/2024 10:54 AM EDT Shanta Alejandro 6. Suicidal Behavior (Lifetime) No 12/02/2024 10:54 AM ELDERT Shanta Alejandro documented as of this encounter Miscellaneous Notes * Assessment & Plan Note - Angel Avila MD - 12/02/2024 11:00 AM EDT Associated Problem(s): History of Vlad-en-Y gastric bypass Orders: APTT; Future Comprehensive Metabolic Panel, Plasma; Future Hemoglobin A1c; Future Iron, Plasma; Future Lipid Profile, Plasma; Future PTH Intact Total; Future Vitamin B12, Serum; Future Vitamin D 25 Hydroxy; Future CBC and Differential; Future Magnesium; Future Vitamin B1, Whole Blood; Future Copper, Serum or Plasma; Future * Progress Notes - Leda Lucas LD - 12/02/2024 11:00 AM EDT Darrin Vargas 1965 presented for 23 month nutritional counseling status post Vlad-en-Y Gastric Bypass. Tanita Scale Results: Current Weight: 247.0 lbs. BMI: 36.48 kg/m?? body composition results were discussed and reviewed to the patient Consult Weight: 326.6 lbs. Previous Visit/Weight: 01/29/2024 - 268.0 lbs. Weight Change Since Consult: decrease of 79.6 lbs. Weight Change Since Previous Visit: decrease of 21 lbs. The patient is currently on stage 6 (noted that he is not tracking consumption). Average Protein Intake Daily: 60 grams Protein Sources Include: chicken, fish, and beef Average Fluid Ounces Daily: 64 fluid ounces Fluid Sources Include: water (with sugar-free flavoring packets), gatorade zero, zero-sugar green tea, and zero-sugar sweet tea The patient is adhering to the recommended vitamin regimen. Bariatric Multivitamin with Iron: daily Calcium Citrate (2241-3056 mg daily): daily Exercise Regimen: The patient stated the he is conducting a mile or mile and a half of walking as aconsistent form of movement daily. Patient Concerns/Habits: The patient has been struggling due to him and his ; noted that he is currently seeing a counselor but stated that he has been having trouble getting in contact with them. The patient was encouraged to reach out to [facility] for additional assistance through this difficult time. Handouts Provided: [facility] informational handout Patient Education: The patient was encouraged to continue to follow bariatric nutrition plan with adjustments dicussed today; additional education provided utilizing handbook and entered in chart forpatient review. All questions answered and instructed patient to call registered dietitian for any and all questions and concerns. * Progress Notes - Angel Avila MD - 12/02/2024 11:00 AM EDT Subjective HPI Patient status 2 years post laparoscopic Vlad-en-Y Gastric Bypass. Clinic appointment today for post operative evaluation and labs evaluation. Present diet: general low calorie diet Tolerating diet?: Yes Adhering to vitamin regimen?: Yes Bowel function difficulties?: No Exercising?: Yes The following portions of the chart were reviewed this encounter and updated as appropriate: Allergies[1] Current Outpatient Medications Medication Instructions acetaminophen (TYLENOL) 650 mg, Oral, Every 6 hours PRN allopurinol (ZYLOPRIM) 300 mg, Daily ofdynvqfspl-vkfcbdsykrgr-ktnnbqiyru (Trimix) 20-1-30 mcg-mg-mg/mL intracavernosal injection 0.1-0.5mL, Daily PRN carvedilol (COREG) 12.5 mg, Oral, 2 times daily with meals, 1/2 tab BID. MUST KEEP APPOINTMENT IN SEPT FOR FUTURE REFILLS. cyanocobalamin (VITAMIN B-12) 1,000 mcg, Daily Eliquis 5 mg, Oral, 2 times daily, Do not resume taking until 12/29/22 ezetimibe (ZETIA) 10 mg, Oral, Daily gabapentin (NEURONTIN) 300 mg, Nightly HYDROcodone-acetaminophen ([place]) 5-325 MG tablet 5 mg of hydrocodone, Oral, Every 4 hours PRN Kloxxado 8 mg, Nasal, As needed, 1. Give 1 spray in nostril for no/slow breathing or cannot wake after opioid use 2. Call 911 3. Repeat in other nostril if symptoms continue losartan (Cozaar) 50 MG tablet Take 1 tablet (50 mg) by mouth 1 (one) time each day. metFORMIN (GLUCOPHAGE) 500 mg, Oral, 2 times daily with meals ondansetron ODT (ZOFRAN-ODT) 4 mg, Oral, Every 8 hours PRN pravastatin (PRAVACHOL) 80 mg, Every evening sildenafil (VIAGRA) 100 mg, Oral, Daily PRN sotalol (BETAPACE) 120 mg, Oral, 2 times daily, MUST KEEP APPOINTMENT IN SEPT FOR FUTURE REFILLS. tadalafil (Cialis) 5 MG tablet Take 1 tablet (5 mg) by mouth 1 (one) time each day. vilazodone (VIIBRYD) 20 mg, ZZ Daily RT ROS General: Negative Head and Neck: Negative Cardiovascular: Negative Respiratory: Negative Endocrine: Negative Gastrointestinal: Negative Bladder/Kidney: Negative Gynecologic: Negative Breast: Negative Musculoskeletal: Negative Neurologic: Negative Psychiatric: Currently under the care of a mental health provider, Depression, and , recently from his Blood/Lymphatic: Negative Skin: Negative Objective Vitals: 12/02/24 1053 BP: 117/81 Pulse: 68 Resp: 16 SpO2: 99% PHYSICAL EXAM General: normal Cardiovascular: normal Respiratory/chest: normal Abdomen: Well healed incisions Assessment/Plan Assessment & Plan History of Vlad-en-Y gastric bypass Orders: APTT; Future Comprehensive Metabolic Panel, Plasma; Future Hemoglobin A1c; Future Iron, Plasma; Future Lipid Profile, Plasma; Future PTH Intact Total; Future Vitamin B12, Serum; Future Vitamin D 25 Hydroxy; Future CBC and Differential; Future Magnesium; Future Vitamin B1, Whole Blood; Future Copper, Serum or Plasma; Future Type 2 diabetes mellitus without complication, without long-term current use of insulin Plan: Follow up in 12 months. Met with dietitian and received post op counseling and discussed the importance of compliance with diet and exercise plan going forward. [1] Allergies Allergen Reactions Penicillins Shortness of breath documented in this encounter Plan of Treatment Upcoming Encounters Date Type Department Care Team (Late st Contact Info) Description 04/26/2025 3:40 PM EST Office Visit [facility] [address] [place] [address] Sasha Rico MD [address] [place] [address] 12/01/2025 10:00 AM EDT Office Visit [facility] General & Weight Loss Surgery [address] [place] [address] Angel Avila MD [address] [place] [phone] documented as of this encounter Results * Copper, Serum or Plasma (12/02/2024 11:56 AM EDT) Copper, Serum or Plasma 101.1 70.0 - 140.0 ug/dL 12/03/2024 9:29 PM EDT [facility] Blood Venous blood specimen / Unknown Venipuncture / Unknown 12/02/2024 11:56 AM EDT 12/02/2024 12:00 PM EDT Narrative [facility]) - 12/03/2024 9:29 PM EDT INTERPRETIVE INFORMATION: Copper, Serum or Plasma Elevated results may be due to skin or collection-related contamination, including the use of a noncertified metal-free collection/transport tube. If contamination concerns exist due to elevated levels of serum/plasma copper, confirmation with a second specimen collected in a certified metal-free tube is recommended. Serum copper may be elevated with infection, inflammation, stress, and copper supplementation. In females, elevated copper may also be caused by oral contraceptives and (concentrations may be elevated up to 3 times normal during the third trimester). This test was developed and its performance characteristics determined by [facility]. It has not been cleared or approved by the [place] Food and Drug Administration. This test was performed in a CLIA certified laboratory and is intended for clinical purposes. Performed By: [facility] [address] [place] [address] Fish Farmer: Hernan Mac MD, PhD CLIA Number: [id number] Angel Avila MD LAB BLOOD ORDERABLES Final Result [facility] ([facility]) [address] [place] [address] * Vitamin B1, Whole Blood (12/02/2024 11:56 AM EDT) VITAMIN B1, WHOLE BLOOD 93 70 - 180 nmol/L 12/05/2024 11:59 AM EDT [facility] Blood Venous blood specimen / Unknown Venipuncture / Unknown 12/02/2024 11:56 AM EDT 12/02/2024 12:00 PM EDT Narrative [facility]) - 12/05/2024 11:59 AM EDT INTERPRETIVE INFORMATION: Vitamin B1, Whole Blood This assay measures the concentration of thiamine diphosphate (TDP), the primary active form of vitamin B1. Approximately 90 percent of vitamin B1 present in whole blood is TDP. Thiamine and thiamine monophosphate, which comprise the remaining 10 percent, are not measured. This test was developed and its performance characteristics determined by [facility]. It has not been cleared or approved by the [place] Food and Drug Administration. This test was performed in a CLIA certified laboratory and is intended for clinical purposes. Performed By: [facility] [address] [place] [id number] Fish Farmer: Hernan Mac MD, PhD CLIA Number: [id number] Angel Avila MD LAB BLOOD ORDERABLES Final Result Performing Organization Address City/[facility]/ZIP Co de Phone Number [facility] ([facility]) [address] [place] [id number] * (ABNORMAL) Magnesium (12/02/2024 11:56 AM EDT) [facility] Magnesium, Plasma 1.8(L) 1.9 - 2.4 mg/dL 12/02/2024 2:43 PM EDT [facility] Blood Venous blood specimen / Unknown Venipuncture / Unknown 12/02/2024 11:56 AM EDT 12/02/2024 12:00 PM EDT Angel Avila MD LAB BLOOD ORDERABLES Final Result [facility] [address] [facility] [address] * (ABNORMAL) CBC and Differential (12/02/2024 11:56 AM EDT) Pathologist [facility] [place] WBC Count 6.10 3.70 - 10.30 10*3/uL LAB HEMATOLOGY METHOD 12/02/2024 2:26 PM EDT [facility] RBC Count 4.74 4.60 - 6.10 10*6/uL LAB HEMATOLOGY METHOD 12/02/2024 2:26 PM EDT [facility] HGB 14.4 13.7 - 17.5 g/dL LAB HEMATOLOGY METHOD 12/02/2024 2:26 PM EDT [facility] HCT 45.2 40.0 - 51.0 % LAB HEMATOLOGY METHOD 12/02/2024 2:26 PM EDT [facility] Platelet Count 160 155 - 369 10*3/uL LAB HEMATOLOGY METHOD 12/02/2024 2:26 PM EDT [facility] MCV 95 79 - 98 fL LAB HEMATOLOGY METHOD 12/02/2024 2:26 PM EDT [facility] MCH 30.4 26.0 - 32.0 pg LAB HEMATOLOGY METHOD 12/02/2024 2:26 PM EDT [facility] MCHC 31.9 30.7 - 35.5 g/dL LAB HEMATOLOGY METHOD 12/02/2024 2:26 PM EDT [facility] RDW 15.1(H) 11.5 - 14.5 % LAB HEMATOLOGY METHOD 12/02/2024 2:26 PM EDT [facility] MPV 12.0 8.8 - 12.5 fL LAB HEMATOLOGY METHOD 12/02/2024 2:26 PM EDT [facility] nRBC 0.0 <=0.0 per 100 WBCs LAB HEMATOLOGY METHOD 12/02/2024 2:26 PM EDT [facility] Differential Type Automated LAB HEMATOLOGY METHOD 12/02/2024 2:26 PM EDT [facility] Neutrophils % 55 % LAB HEMATOLOGY METHOD 12/02/2024 2:26 PM EDT [facility] Lymphocytes % 35 % LAB HEMATOLOGY METHOD 12/02/2024 2:26 PM EDT [facility] Monocytes % 7 % LAB HEMATOLOGY METHOD 12/02/2024 2:26 PM EDT [facility] Eosinophils % 2 % LAB HEMATOLOGY METHOD 12/02/2024 2:26 PM EDT [facility] Basophils % 1 % LAB HEMATOLOGY METHOD 12/02/2024 2:26 PM EDT [facility] Immature Granulocytes % 0 % LAB HEMATOLOGY METHOD 12/02/2024 2:26 PM EDT [facility] Neutrophils Absolute 3.39 1.60 - 6.10 10*3/uL LAB HEMATOLOGY METHOD 12/02/2024 2:26 PM EDT [facility] Lymphocytes Absolute 2.15 1.20 - 3.90 10*3/uL LAB HEMATOLOGY METHOD 12/02/2024 2:26 PM EDT [facility] Monocytes Absolute 0.41 0.30 - 0.90 10*3/uL LAB HEMATOLOGY METHOD 12/02/2024 2:26 PM EDT [facility] Eosinophils Absolute 0.10 0.00 - 0.50 10*3/uL LAB HEMATOLOGY METHOD 12/02/2024 2:26 PM EDT [facility] Basophils Absolute 0.03 0.00 - 0.10 10*3/uL LAB HEMATOLOGY METHOD 12/02/2024 2:26 PM EDT [facility] Immature Granulocytes Absolute 0.02 0.00 - 0.06 10*3/uL LAB HEMATOLOGY METHOD 12/02/2024 2:26 PM EDT [facility] Blood Venous blood specimen / Unknown Venipuncture / Unknown 12/02/2024 11:56 AM EDT 12/02/2024 12:00 PM EDT Narrative [facility] - 12/02/2024 2:26 PM EDT Therapeutic decision making should be based on absolute values, rather than percentages. Angel Avila MD LAB BLOOD ORDERABLES Final Result [facility] [address] [place] [address] * Vitamin D 25 Hydroxy (12/02/2024 11:56 AM EDT) Vitamin D 25 Hydroxy 29.3 20.0 - 80.0 ng/mL 12/02/2024 3:06 PM EDT [facility] Blood Venous blood specimen / Unknown Venipuncture / Unknown 12/02/2024 11:56 AM EDT 12/02/2024 12:00 PM EDT Narrative [facility] - 12/02/2024 3:06 PM EDT Testing performed on [employer] Setter, standardized against NIST SRM 2972. When testing samples from patients whose predominant form of vitamin D is vitamin D2, such as patients receiving vitamin D2 supplementation, results that are subtherapeutic should be confirmed with another method, such as LC-MS/MS, before being used for patient management. Vitamin D, 25-Hydroxy reference range, age 18 years and up: Deficiency: <12 ng/mL Insufficiency: 12 to 19 ng/mL Sufficiency: 20 to 80 ng/mL Possible toxicity: >100 ng/mL Angel Avila MD LAB BLOOD ORDERABLES Final Result [facility] [address] [place] [address] * Vitamin B12, Serum (12/02/2024 11:56 AM EDT) Vitamin B12, Serum 280 210 - 1,033 pg/mL 12/02/2024 2:53 PM EDT [facility] Blood Venous blood specimen / Unknown Venipuncture / Unknown 12/02/2024 11:56 AM EDT 12/02/2024 12:00 PM EDT Angel Avila MD LAB BLOOD ORDERABLES Final Result Performing Organization Address City/[facility]/ZIP Co de Phone Number [facility] [address] [place] [address] * PTH Intact Total (12/02/2024 11:56 AM EDT) PTH Intact Total 70 9 - 77 pg/mL 12/02/2024 2:48 PM EDT [facility] Blood Venous blood specimen / Unknown Venipuncture / Unknown 12/02/2024 11:56 AM EDT 12/02/2024 12:00 PM EDT Narrative [facility] - 12/02/2024 2:48 PM EDT Assay performed by immunoassay at the [facility]. Performed on [employer] Collar Setter chemiluminescent immunoassay, tractable to the World Health Organization's first international standard for PTH from the NIBSC, Code 79/500. Results obtained from different test methods or kits cannot be used interchangeably. Angel Avila MD LAB BLOOD ORDERABLES Final Result [facility] [address] [place] [address] * Lipid Profile, Plasma (12/02/2024 11:56 AM EDT) Cholesterol, Plasma 93 <200 mg/dL 12/02/2024 2:43 PM EDT [facility] Comment: Cholesterol Reference Range (age >17 years): Desirable <200 mg/dL Borderline 200 to 239 mg/dL Undesirable >239 mg/dL HDL 45 >=40 mg/dL 12/02/2024 2:43 PM EDT [facility] Comment: HDL Cholesterol Reference Ranges (age >17 years): Female, acceptable > or = 50 mg/dL Male, acceptable > or = 40 mg/dL Triglycerides, Plasma 80 <150 mg/dL 12/02/2024 2:43 PM EDT [facility] Comment: Triglyceride Reference Range (age >17 years): Desirable: <150 mg/dL Borderline high: 150 to 199 mg/dL High: 200 to 499 mg/dL Very high: >499 mg/dL Increased risk of pancreatitis: >1000 mg/dL Cholesterol/HDL Ratio 2 12/02/2024 2:43 PM EDT [facility] LDL, Calculated 32 <100 mg/dL 2:43 PM EDT [facility] Comment: LDL Cholesterol Reference Range (age >17 years): Optimal: <100 mg/dL Near or above optimal: 100 - 129 mg/dL Borderline high: 130 - 159 mg/dL High: 160 - 189 mg/dL Very high: >189 mg/dL LDL Cholesterol Reference Range (age <18 years): Desirable: <110 mg/dL Borderline: 110 - 129 mg/dL Undesirable: >130 mg/dL LDL Cholesterol is calculated using the Trevizo/NIH equation. Fasting greater than or equal to 12 hours? Yes 12/02/2024 2:43 PM EDT [facility] Blood Venous blood specimen / Unknown Venipuncture / Unknown 12/02/2024 11:56 AM EDT 12/02/2024 12:00 PM EDT Angel Avila MD LAB BLOOD ORDERABLES Final Result [facility] [address] [place] [address] * Iron, Plasma (12/02/2024 11:56 AM EDT) Iron, Plasma 86 50 - 170 ug/dL 12/02/2024 2:43 PM EDT [facility] Blood Venous blood specimen / Unknown Venipuncture / Unknown 12/02/2024 11:56 AM EDT 12/02/2024 12:00 PM EDT us Angel Avila MD LAB BLOOD ORDERABLES Final Result Performing Organization Address [facility] [place] [facility]/ZIP Co de Phone Number [facility] [address] [place] [address] * (ABNORMAL) Hemoglobin A1c (12/02/2024 11:56 AM EDT) Hemoglobin A1c 7.0(H) <5.7 % 12/02/2024 3:38 PM EDT [facility] Blood Venous blood specimen / Unknown Venipuncture / Unknown 12/02/2024 11:56 AM EDT 12/02/2024 12:00 PM EDT Narrative [facility] - 12/02/2024 3:38 PM EDT HA1C Interpretive Data: Diagnosis of Diabetes: Diabetic > or = 6.5% Pre-diabetic 5.7 to 6.4% Non-diabetic < or = 5.6% Glycemic Targets for Type I and Type II Diabetics: Non- Adults <7.0% Adults <6.0% Children and Adolescents <7.5% Source: [place] [employer]. Standards of medical care in diabetes,2017. Diabetes Care.2017:40 (suppl 1):S1-S135. us Angel Avila MD LAB BLOOD ORDERABLES Final Result Performing Organization Address City/[facility]/ZIP Co de Phone Number [facility] [address] [place] [address] * (ABNORMAL) Comprehensive Metabolic Panel, Plasma (12/02/2024 11:56 AM EDT) Glucose, Plasma 125(H) 74 - 99 mg/dL 12/02/2024 2:43 PM EDT [facility] BUN, Plasma 15 8 - 23 mg/dL 12/02/2024 2:43 PM EDT [facility] Creatinine, Plasma 1.14 0.70 - 1.20 mg/dL 12/02/2024 2:43 PM EDT [facility] BUN/Creatinine Ratio 13 12/02/2024 2:43 PM EDT [facility] Sodium, Plasma 140 136 - 145 mmol/L 12/02/2024 2:43 PM EDT [facility] Potassium, Plasma 5.0(H) 3.6 - 4.9 mmol/L 12/02/2024 2:43 PM EDT [facility] Chloride, Plasma 107 97 - 107 mmol/L 12/02/2024 2:43 PM EDT [facility] CO2, Plasma 23 22 - 29 mmol/L 12/02/2024 2:43 PM EDT [facility] Anion Gap 10 6 - 16 mmol/L 12/02/2024 2:43 PM EDT [facility] Total Calcium, Plasma 9.5 8.9 - 10.2 mg/dL 12/02/2024 2:43 PM EDT [facility] Total Protein 7.2 6.3 - 7.9 g/dL 12/02/2024 2:43 PM EDT [facility] Albumin, Plasma 3.8 3.5 - 5.2 g/dL 12/02/2024 2:43 PM EDT [facility] AST, Plasma 22 10 - 50 U/L 12/02/2024 2:43 PM EDT [facility] ALT, Plasma 24 10 - 50 U/L 12/02/2024 2:43 PM EDT [facility] Alkaline Phosphatase, Plasma 61 40 - 115 U/L 12/02/2024 2:43 PM EDT [facility] Total Bilirubin, Plasma 0.5 0.2 - 1.1 mg/dL 12/02/2024 2:43 PM EDT [facility] eGFRcr 73.2 mL/min/1.7 3m*2 12/02/2024 2:43 PM EDT [facility] Comment:Reported eGFRcr in m L/min/1.73m2 is based the CKD-EPI 2020 equation that does not use a race coefficient. Blood Venous blood specimen / Unknown Venipuncture / Unknown 12/02/2024 11:56 AM EDT 12/02/2024 12:00 PM EDT Angel Avila MD LAB BLOOD ORDERABLES Final Result Performing Organization Address City/[facility]/ZIP Co de Phone Number [facility] [address] [place] [address] * APTT (12/02/2024 11:56 AM EDT) aPTT 32 25 - 35 sec LAB COAGULATION METHOD 12/02/2024 2:33 PM EDT [facility] Blood Venous blood specimen / Unknown Venipuncture / Unknown 12/02/2024 11:56 AM EDT 12/02/2024 12:00 PM EDT Angel Avila MD LAB BLOOD ORDERABLES Final Result Performing Organization Address City/[facility] Co de Phone Number [facility] [address] [place] [address] documented in this encounter Visit Diagnoses Diagnosis History of Vlad-en-Y gastric bypass- Primary Type 2 diabetes mellitus without complication, without long-term current use of insulin documented in this encounter Additional Health Concerns Assessment Noted Time PHQ-9 Depression Total Score: 6 12/03/19 25 10:55 AM EDT A fall risk assessment has been complete d for the patient 12/02/2024 10:54 AM EDT A Body Mass Index follow-up plan has been documented for the patient 12/02/2024 5:11 PM EDT documented as of this encounter Care Teams [employer] Work[employer] Relationship Specialty Start Date End Date Francisco Javier Cooley MD [address] [place] [address] PCP - General 08/18/20 documented as of this encounter
--- OUTSIDE RECORDS SUMMARY | 2025-01-02 11:46 | XMS_ITS | Encounter Summary ---
Author Organization Healthcare Address [address] [place] [address] Care Team Providers Care District Gauger Name Role Phone Francisco Javier Cooley MD Primary Care Provider [phone] Reason for Visit * Reason Comments Syncope Encounter Details Date Type Department Care Team ([facility] st Contact Info) Description 01/02/2025 11:46 AM EDT - 01/02/2025 5:16 PM EDT Emergency [facility] Emergency Department [address] [place] [address] William Freitas MD [address] [place] [address] Carlos Pillai MD [address] [place] [address] Syncope and collapse (Primary Dx) Discharge Disposition: Home or Self Care Social History Tobacco Use Types Packs/Day Years [...] a nursing home (including now)? 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 0 02/13/2023 CAGE Questionnaire Score 0 023 Utilities Answer Date Recorded In the past 12 months has th e electric, gas, oil, or water [employer] threatened to shut off services in your [...] Sign Reading Time Taken Comments Blood Pressure 129/87 01/02/2025 4:17 PM EDT Pulse 75 01/02/2025 4:17 PM EDT Temperature 36.8 C (98.2 F) 01/02/2025 11:53 AM EDT Respiratory Rate 17 01/02/2025 4:17 PM EDT Oxygen Saturation 98% 01/02/2025 4:17 PM EDT Inhaled Oxygen Concentration - - Weight 111 kg (244 lb 14.9 oz) 01/02/2025 11:53 AM EDT Height 177.8 cm (5' 10 ) 01/02/2025 11:53 AM EDT Body Mass Index 35.14 01/02/2025 11:53 AM EDT documented in this encounter Functional Status * Calculated C-SSRS Risk Score (Lifetime/Recent) Answer Date of Assessment Author No Risk Indicated 01/02/2025 11:57 AM EDT Jaylene Og RN * Question Answer Date of Assessment Author 1. Wish to be (Past 1 Month) No 01/02/2025 11:57 AM EDT Radha Joyner RN 2. Non-Specific Active Suicidal Thoughts (Past 1 Month) No 01/02/2025 11:57 AM EDT Radha Joyner RN 6. Suicidal Behavior (Lifetime) No 01/02/2025 11:57 AM EDT Radha Joyner RN documented as of this encounter Discharge Instructions * Discharge Instructions* Aretha Wei MD - 01/02/2025 5:06 PM EDT Please return to ED if your symptoms worsen, change in location, change in severity, new symptoms develop or if you become concerned for your health. documented in this encounter Medications at Time of Discharge acetaminophen (Tylenol) 325 MG tablet Take 2 tablets (650 mg) by mouth every 6 (six) hours if needed (pain, temperature greater than 100.5F or 38.0 C). 100 tablet 3 allopurinol (Zyloprim) 300 MG tablet Take 1 tablet (300 mg) by mouth 1 (one) time each day. 1 alprostadil-phentol amine-papaverine (Trimix) 20-1-30 mcg-mg-mg/mL intracavernosal injection 0.1-0.5 mL by Intracavernosal route 1 (one) time each day if needed for erectile dysfunction. carvedilol (Coreg) 25 MG tablet Take 0.5 tablets by mouth 2 times a day with meals. 1/2 tab BID. MUST KEEP APPOINTMENT IN DEC FOR FUTURE REFILLS. 90 tablet 5 cyanocobalamin 1000 MCG tablet Take 1 tablet (1,000 mcg) by mouth 1 (one) time each day. Eliquis 5 MG tablet Take 1 tablet (5 mg) by mouth 2 (two) times a day. Do not resume taking until 12/29/22 180 tablet 3 4 ezetimibe (Zetia) 10 MG tablet TAKE ONE TABLET BY MOUTH EVERY DAY 60 tablet 5 gabapentin (Neurontin) 300 MG capsule Take 1 capsule (300 mg) by mouth every night. 2 HYDROcodone-acetami nophen (Medford) 5-325 MG tablet Take 1 tablet (5 mg of hydrocodone) by mouth every 4 (four) hours if needed for severe pain. 30 tablet 3 losartan (Cozaar) 50 MG tablet Take 1 tablet (50 mg) by mouth 1 (one) time each day. 2 metFORMIN (Glucophage) 500 MG tabletIndications:T ype 2 diabetes mellitus with other specified complication, unspecified whether care home insulin use Take 1 tablet by mouth 2 times a day with meals. 180 tablet 3 5 08/12/19 26 naloxone (Kloxxado) 8 mg/0.1 mL nasal spray 1. Give 1 spray in nostril for no/slow breathing or cannot wake after opioid use 2. Call 911 3. Repeat in other nostril if symptoms continue 1. Give 1 spray in nostril for no/slow breathing or cannot wake after opioid use 2. Call 911 3. Repeat in other nostril if symptoms continue 1 each 3 ondansetron ODT (Zofran-ODT) 4 MG disintegrating tablet Take 1 tablet (4 mg) by mouth every 8 (eight) hours if needed for nausea or vomiting. 30 tablet 3 pravastatin (Pravachol) 80 MG tablet Take 1 tablet (80 mg) by mouth 1 (one) time each day in the evening. 2 sildenafil (Viagra) 100 MG tablet Take 1 tablet (100 mg) by mouth 1 (one) time each day if needed for erectile dysfunction. sotalol (Betapace) 120 MG tabletIndications:A trial fibrillation, unspecified type (CMS/HCC) Take 1 tablet by mouth 2 times a day. MUST KEEP APPOINTMENT IN DEC FOR FUTURE REFILLS. 180 tablet 5 tadalafil (Cialis) 5 MG tablet Take 1 tablet (5 mg) by mouth 1 (one) time each day. 7 vilazodone (Viibryd) 20 MG tablet Take 1 tablet by mouth 1 time each day. 5 documented as of this encounter Miscellaneous Notes * Consults - Ramiro Chilel DO - 01/02/2025 4:06 PM EDTAssociated Order(s): Inpatient consult to Cardiology Images from the original note were not included. CARDIOLOGY NEW CONSULT NOTE Inpatient consult to Cardiology Consult performed by: Ramiro Chilel DO Consult ordered by: William Freitas MD SUBJECTIVE History Of Present Illness Darrin Vargas is a 59 y.o. male with a past medical history significant for paroxysmal atrial fibrillation, HFimpEF s/p single chamber [employer] 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 Cardiology is being consulted at the request of CARLOS PILLAI MD for for interrogation of his ICD. Mr. Vargas mentions feeling well until this morning when he had some lightheadedness. He denies eating or drinking prior to attending confucianism. 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 He denies injuring any part of his body, denies hitting his head. He felt a bit groggy afterward but is back to his baseline and feels better than he did this morning. He denies loss of bowel or bladder function. He denies any prior or current chest pain, fluttering in his chest, or shortness of breath. He does become symptomatic with episodes of atrial fibrillation noticing a racing heart beat which he denies feeling today. Denies ICD shocking him. He denies missing any recent doses of sotalol or carvedilol. He mentions a history of similar syncopal episodes 10 years ago and is uncertain of the exact causebut he denies it occurring secondary to a heart condition. Review of Systems 14 point ROS reviewed and is otherwise negative except that which is mentioned in the HPI. Past Medical History Past Medical History[1] Surgical History Surgical History[2] Family History Reviewed and non-contributory. Allergies Penicillins Home Medications Current Outpatient Medications Medication Instructions acetaminophen (TYLENOL) 650 mg, Oral, Every 6 hours PRN allopurinol (ZYLOPRIM) 300 mg, Daily olgbtlmjcdu-ghroyrkawjsa-plkcnnkxwc (Trimix) 20-1-30 mcg-mg-mg/mL intracavernosal injection 0.1-0.5mL, Daily PRN carvedilol (COREG) 12.5 mg, Oral, 2 times daily with meals, 1/2 tab BID. MUST KEEP APPOINTMENT IN DEC FOR FUTURE REFILLS. cyanocobalamin (VITAMIN B-12) 1,000 mcg, Daily Eliquis 5 mg, Oral, 2 times daily, Do not resume taking until 12/29/22 ezetimibe (ZETIA) 10 mg, Oral, Daily gabapentin (NEURONTIN) 300 mg, Nightly HYDROcodone-acetaminophen (Medford) 5-325 MG tablet 5 mg of hydrocodone, [...] 2 times daily, MUST KEEP APPOINTMENT IN DEC FOR FUTURE REFILLS. tadalafil (Cialis) 5 MG tablet Take 1 tablet (5 mg) by mouth 1 (one) time each day. vilazodone (VIIBRYD) 20 mg, ZZ Daily RT OBJECTIVE Physical Exam Visit Vitals BP 124/74 (BP Location: Right arm, Patient Position: Lying) Pulse 73 Temp 36.8 ??C (98.2 ??F) (Oral) Resp 18 Ht 1.778 m (5' 10 ) Wt 111 kg (244 lb 14.9 oz) SpO2 97% BMI 35.14 kg/m?? Smoking Status Never BSA 2.34 m?? Physical Exam Blood pressure 129/87, pulse 75, temperature 36.8 ??C (98.2 ??F), temperature source Oral, resp. rate 17, height 1.778 m (5' 10 ), weight 111 kg (244 lb 14.9 oz), SpO2 98%. GENERAL: Awake, alert, NAD HEENT: NCAT NECK: No appreciable JVD CARDIAC: Regular rate, regular rhythm, normal S1/S2, no m/r/g, 2+ radial pulses bilaterally PULM: CTAB without increased work of breathing on room air ABD: Soft, NT, ND EXT: Warm and well perfused, no LE edema SKIN: No rashes or lesions NEURO: A&Ox4, moving all extremities spontaneously Primary Study Review: I personally reviewed the images/tracings of the following studies: ECG, device interrogation, and chest x-ray Lab Review Results from last 7 days Lab Units 01/02/25 1258 SODIUM mmol/L 139 POTASSIUM mmol/L 5.2* CHLORIDE mmol/L 108* CO2 mmol/L 20* BUN mg/dL 12 CREATININE mg/dL 1.03 CALCIUM mg/dL 8.6* BILIRUBIN TOTAL mg/dL 0.4 ALKALINE PHOSPHATASE U/L 51 ALT U/L 21 AST U/L 19 GLUCOSE mg/dL 129* Lab Results Component Value Date GLUCOSE 129 (H) 01/02/2025 CALCIUM 8.6 (L) 01/02/2025 NA 139 01/02/2025 K 5.2 (H) 01/02/2025 CO2 20 (L) 01/02/2025 CL 108 (H) 01/02/2025 BUN 12 01/02/2025 CREATININE 1.03 01/02/2025 Results from last 7 days Lab Units 01/02/25 1258 WBC 10*3/uL 7.62 HEMOGLOBIN g/dL 13.8 HEMATOCRIT % 42.2 PLATELETS 10*3/uL 150* No lab exists for component: NTPROBNP ECG: Reviewed Previous Echo: No echocardiogram results found for the past 12 months Imaging === 01/02/25 === XR CHEST 1 VIEW - Narrative - CLINICAL INDICATION: SYNCOPE TECHNIQUE: XR CHEST 1 VIEW COMPARISON: None. FINDINGS: Lungs are clear. AICD device present from left subclavian approach Heart and mediastinal contours are within normal limits. No pneumothorax. No pleural effusion. Bony structures are unremarkable. - Impression - No acute finding. CRITICAL RESULT: No. COMMUNICATION: Per this written report. Drafted by Tonio Reina MD on 01/02/2025 2:28 PM Final report signed by Tonio Reina MD on 01/02/2025 2:29 PM Device interrogation Single chamber Beal ICD Lead impedence of 350 , prior 340 2023. 45 prior 42 2023 Pacing set to VVI with ventricular pacing with a base rate of 40 bpm. Tachy therapies are enabled He has had no VT/VF arrhythmia episodes. No ATP or shocks. No SVT or non- sustained SVT episodes. ECG 07/2023 Normal sinus rhythm. LAD. Poor R wave progression. ECG 12/2024 (today) Normal sinus rhythm. LAD. Normal intervals. Non-specific ST wave changes in leads I/AVL ASSESSMENT/PLAN Darrin Vargas is a 59 y.o. male who initially presented to the [facility] for syncope, and Cardiology is being consulted for interrogation of his ICD. He mentions feeling lightheaded this morning and having a brief episode of syncope this morning. 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 Denies any concerning cardiac symptoms prior to his event such as heart racing, chest pain, dyspnea. On exam he is warm, well perfused, with a normal cardiac exam in a normal sinus rhythm. He has no evidence of arrythmogenic episodes on device interrogation. Suspect vasovagal syncope in setting of lightheadedness and mentioning not eating breakfast this morning. He mention similar episodes of syncope many years ago that were similar in consistent and he denies being told the etiology at that time was cardiac. I have a low suspicion for cardiac etiologies; device without evidence of arrhythmogenic event, while he does have acute non-specific ST wave changes in the lateral leads he is asymptomatic from an ACS standpoint without a significant delta high sensitivity troponin. He has no murmurs on exam concerning for valvular pathologies and echocardiogram in 2022 without evidence of valvular disease. He has elevated troponins but without a significant delta. He does have new ST abnormalities in I and AVL but denies anginal symptoms at this time. Will follow up outpatient with EP team, but had to cancel his appt on 12/28/2024 and needed to reschedule. Recommendations: -low suspicion for cardiac etiology for his syncope -assess for alternative causes, likely vasovagal with prodromal symptoms and lack of eating prior to confucianism today. -follow up outpatient with EP team and non specific ST wave changes -continue home sotalol and carvedilol The following cardiovascular risk factors and co-morbidities complicates the management of these conditions: none This consult has been staffed with the following attending physician: Dr Wilburn. Please consider these recommendations preliminary until the note has been cosigned by the attending physician. Please page the on-call bank manager ([phone]) with any further questions. I spent 30 minutes performing the following components of the encounter (on the day of the encounter): reviewing history, examining the patient, and entering clinical information in the EHR. Salas Chilel DO Department of Cardiovascular Disease Fellow, PGY-4 [1] Past Medical History: Diagnosis Date Anxiety Arrhythmia Arthritis Astigmatism of left eye 04/15/2017 Bilateral myopia 04/15/2017 Bilateral presbyopia 04/15/2017 Cardiomyopathy, unspecified ([facility]) Cardiomyopathy Essential (primary) hypertension HTN (hypertension) GERD (gastroesophageal reflux disease) Gout 03/28/2022 Hyperlipidemia, unspecified Hyperlipidemia Joint pain Morbid obesity with BMI of 45.0-49.9, adult ([facility]) Nuclear sclerosis 04/15/2017 Sleep apnea Type 2 diabetes mellitus without complications Type 2 diabetes mellitus Unspecified atrial fibrillation ([facility]) Afib Vitamin D deficiency 03/28/2022 [2] Past Surgical History: Procedure Laterality Date CARDIAC CATHETERIZATION no cardiac stents. CARDIAC DEFIBRILLATOR PLACEMENT 2008 and 2015 with gen change COLONOSCOPY GASTRIC BYPASS 12/26/22. s/p multiple surgeries after 2/2 abscess. INSERT / REPLACE / REMOVE PACEMAKER 2008 s/p [address] Stewart PM/ICD placed (2015 battery change). Cosigned by Jose Miguel Wilburn DO at 01/03/2025 1:35 PM EDT Associated attestation - Jose Miguel Wilburn DO - 01/03/2025 1:35 PM EDT I saw and evaluated the patient with the resident/fellow. I discussed the case with the resident/fellow and agree with the findings and plan as documented. * ED Provider Notes - Arleth Yarbrough DO - 01/02/2025 11:46 AM EDT Images from the original note were not included. - HPI Chief Complaint Patient presents with Syncope Mr. Vargas is a 59 y/o M with a PMHx of DM, Vfib s/p ICD, Afib on elliquis, DM, HTN, HLD, GERD, Vlad-en-y gastric bypass, depression who presents to the ED for syncope. 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 When he returned to consciousness he was on the floor of the room. He denies headstrike but is on eliquis. He denies other sx i ncluding palpitations, chest pain, SOB, fever, chills, flushing, dizziness, tinnitus, N/V, abdominal pain, dysuria, or other sick sx. He reports eating one meal this AM but is unsure how hydrated he is. He has had one previous episode that he reports was similar to today years ago. He denies recentfiring of his defibrillator or known instances of Afib. He reports recently beginning a new antidepressant 2 weeks ago but otherwise denies recent medication changes. He denies any pain at this time. Patient History Past Medical History[1] Surgical History[2] Family History[3] Social History[4] Allergies: Allergies[5] Physical Exam ED Triage Vitals [01/02/25 1153] Temp Heart Rate Resp BP 36.8 ??C (98.2 ??F) 73 18 124/74 SpO2 Temp Source Heart Rate Source Patient Position 97 % Oral Monitor Lying BP Location FiO2 (%) Right arm -- Physical Exam Constitutional: General: He is not in acute distress. Appearance: Normal appearance. HENT: Head: Normocephalic and atraumatic. Eyes: Extraocular Movements: Extraocular movements intact. Cardiovascular: Rate and Rhythm: Normal rate and regular rhythm. Heart sounds: No murmur heard. No friction rub. No gallop. Pulmonary: Effort: Pulmonary effort is normal. Breath sounds: Normal breath sounds. No wheezing, rhonchi or rales. Abdominal: General: Abdomen is flat. There is no distension. Palpations: Abdomen is soft. Tenderness: There is no abdominal tenderness. Skin: General: Skin is warm and dry. Neurological: Mental Status: He is alert. Comments: Grossly intact sensation in all 4 extremities. Symmetric 3+ strength in BL LE. Intact strength in BL UE and finger squeeze. No facial asymmetry with smile. Intact facial sensation in all distributions of V5. Tongue protrudes to the midline without uvular deviation. No dysarthria. Psychiatric: Behavior: Behavior normal. No data recorded ED Course & MDM - Assessment: 59 y.o. male presents to ED with complaint of syncope. It should be noted that the chronic conditions includes DM, HTN, HLD, GERD, Afib, which currently is at goal therapy. This complicates the clinical picture because it Comorbidities: may be exacerbating symptoms and increases the amount and complexity of data to be reviewed Differential Diagnosis: Differential dx at this time include orthostatic hypotension secondary to dehydration or medicationside effect, BPPV, electrolyte disturbance, episode of atrial fibrillation, posterior circulation stroke, new onset heart block. Given regular heart rhythm on exam and EKG, lack of dizziness/tinnitus, and lack of focal neurologic findings on exam vertigo, posterior circulation stroke, Afib, and newheart block seem less likely at this time. In order to fully explore the differential diagnosis the following treatments and tests were ordered: All Other Orders Ordered Status Ordering Provider 01/02/25 1556 ECG Adult Once Acknowledged SCOCCA, ARLETH L 01/02/25 1324 Troponin T, High Sensitivity, 2 Hour, Plasma PROCEDURE ONCE Final result SCOCCA, ARLETH L 01/02/25 1410 Inpatient consult to Cardiology Once Specialty: Cardiology Provider: (Not yet assigned) Completed SCOCCA, ARLETH L 01/02/25 1336 XR Chest 1 View One time imaging Final result SCOCCA, ARLETH L 01/02/25 1331 Once Canceled SCOCCA, ARLETH L 01/02/25 1241 CBC w/diff STAT Final result SCOCCA, ARLETH L 01/02/25 1241 CMP STAT Final result SCOCCA, ARLETH L 01/02/25 1241 Magnesium STAT Final result SCOCCA, ARLETH L 01/02/25 1241 Troponin now and 120 min STAT Final result SCOCCA, ARLETH L 01/02/25 1241 STAT Canceled SCOCCA, ARLETH L 01/02/25 1153 EKG now - STAT (adult) Once Final result WILLIAM FREITAS ED Course as of 01/05/25 1620 Sun Jan 02, 2025 1528 I discussed this patient with cardiology for evaluation of ICD/PM given syncopal episode and concerned for cardiogenic syncope. Cardiology agreed to evaluate the patient. [CS] 1529 Troponin Delta: 9 Delta troponin is unremarkable. [CS] 1529 CBC w/diff(!) Non actionable [CS] ED Course User Index [CS] Scteo Arleth L DO Clinical Impressions as of 01/05/25 1620 Syncope and collapse Student MDM: Pt is a 59 y/o M with PMHx of vfib s/p PM/ICD (2008, replaced 2016), Afib on eliquis, HTN, DM, depression who presents to the ED after a syncopal episode. Vital signs on arrival are notable for BP 124/74, HR 73, normal RR of 18 with saturation of 97% on RA, afebrile. On initial assessment Pt is resting comfortably in bed in NAD with initial exam with no focal neurological deficits and regular heart rhythm. EKG upon arrival is notable for regular rate with regular rhythm without signs of heart block. Given no acute signs of trauma to the head or face with no TTP or focal deficits on exam will defer imaging at this time. CBC unremarkable for leukocytosis or anemia. CMP notable for hyperkalemia, hyperchloremia, hypocalcemia without other electrolyte derangements or signs of transaminitis. ECG demonstrated NSR, no ST elevations, T wave inversions concerning for ACS. First troponin was elevated at 100, however, delta troponin was unremarkable. Given complex cardiac hx with ICD and syncopalevent I discussed this patient with cardiology to interrogate his device. Cardiology agreed to evaluate the patient. Social Determinates of Health Risks (including Economic Stability, Education and level of understanding, Healthcare access and quality and concerning social factors): None identified on this visit Ultimately, this patient was was signed out to the oncoming provider pending cardiology recommendations and reassessment. ED Prescriptions None Discharge Instructions Please return to ED if your symptoms worsen, change in location, change in severity, new symptoms develop or if you become concerned for your health. Disposition Discharge AVS (Hebrew Snapshot) - Printed 01/02/2025 - Rosa M Rodriguez MS4 Diagnosis management comments: IArleth DO, saw and evaluated the patient with the medical student. I discussed the case with the medical student and agree with the findings and plan as documented. I personally performed the Exam and Medical Decision Making. Peace Yarbrough DO, MHEd Emergency Medicine PGY-3 [1] Past Medical History: Diagnosis Date Anxiety Arrhythmia Arthritis Astigmatism of left eye 04/15/2017 Bilateral myopia 04/15/2017 Bilateral presbyopia 04/15/2017 Cardiomyopathy, unspecified (CMS/HCC) Cardiomyopathy Essential (primary) hypertension HTN (hypertension) GERD (gastroesophageal reflux disease) Gout 03/28/2022 Hyperlipidemia, unspecified Hyperlipidemia Joint pain Morbid obesity with BMI of 45.0-49.9, adult ([facility]) Nuclear sclerosis 04/15/2017 Sleep apnea Type 2 diabetes mellitus without complications Type 2 diabetes mellitus Unspecified atrial fibrillation ([facility]) Afib Vitamin D deficiency 03/28/2022 [2] Past Surgical History: Procedure Laterality Date CARDIAC CATHETERIZATION no cardiac stents. CARDIAC DEFIBRILLATOR PLACEMENT 2008 and 2015 with gen change COLONOSCOPY GASTRIC BYPASS 12/26/22. s/p multiple surgeries after 2/2 abscess. INSERT / REPLACE / REMOVE PACEMAKER 2008 s/p [address] PM/ICD placed (2015 battery change). [3] Family History Problem Relation Name Age of Onset Cardiac disorder Mother Cardiac disorder Father En Vargas Diabetes Father En Vargas Diabetes Other Diabetes Other Diabetes type II Brother Will Anesthesia problems Neg Hx Malig Hyperthermia Neg Hx [4] Tobacco Use Smoking status: Never Passive exposure: Never Smokeless tobacco: Never Vaping Use Vaping status: Never Used Substance Use Topics Alcohol use: Never Comment: social Drug use: Never [5] Allergies Allergen Reactions Penicillins Shortness of breath Arleth Yarbrough DO Resident 01/05/25 1620 Cosigned by William Freitas MD at 01/07/2025 4:50 PM EDT Associated attestation - William Freitas MD - 01/07/2025 4:50 PM EDT I, William Freitas MD, personally verified the history, examined the patient, discussed with thestudent and resident and performed the medical decision making. I agree with the documentation and plan of care. * ED Triage Notes - Jaylene Joyner RN - 01/02/2025 11:46 AM EDT Pt had a syncope episode when standing. Pt was unconscious x1 min. Denies hitting head when fell +BT GCS 15 on arrival VSS Hx cardiac defibrillator, afib, DM * Progress Notes - Aretha Wei MD - 01/02/2025 11:46 AM EDT Images from the original note were not included. ED TRANSFER OF CARE NOTE Transferring provider: Zenon Del Valle attending: Leatha DAYAN Time: 1500 I received sign-out and accepted care of this patient from the previous ED providers caring for this patient. I reviewed the patient's history, exam, work- up, and treatment plan up to this point. Please see the primary ED Provider Note for complete elements of the history, physical exam, and ED course. PERTINENT HISTORY: In brief, Darrin Vargas is a 59 y.o. male with relevant PMH DM, Vfib s/p ICD, Afib on elliquis, DM, HTN, HLD, GERD who presented to the ED for evaluation of syncope. PENDING: I accepted care of this patient from the previous provider pending symptomatic improvement. Ultimately, on reassessment: had improvement of symptoms, ED COURSE: ED Course as of 01/02/25 1706 Sun Jan 02, 2025 1528 I discussed this patient with cardiology for evaluation of ICD/PM given syncopal episode and concerned for cardiogenic syncope. Cardiology agreed to evaluate the patient. [CS] 1529 Troponin Delta: 9 Delta troponin is unremarkable. [CS] 1529 CBC w/diff(!) Non actionable [CS] ED Course User Index [CS] Arleth Yarbrough DO Clinical Impressions as of 01/02/25 1706 Syncope and collapse Ultimately, this patient Was discharged Home (Discharge) The encounter diagnosis was Syncope and collapse. . Patient was counseled on the diagnoses. Discharge medications if any are listed below. Listed medications are thought be either curative for listed diagnoses or will help control ongoing symptoms. Patient is requested to follow up withPatient's Primary Care Provider in order to obtain routine follow-up. Instructions on follow up as well as precautions to return to the ER provided verbally by the EM provider, as well as written in patients discharge education packet. ED Prescriptions None Discharge Instructions Please return to ED if your symptoms worsen, change in location, change in severity, new symptoms develop or if you become concerned for your health. Disposition Discharge - Aretha Wei MD Cosigned by Carlos Pillai MD at 01/05/2025 10:44 AM EDT Associated attestation - Carlos Pillai MD - 01/05/2025 10:44 AM EDT I saw and evaluated the patient with the resident/fellow. I discussed the case with the resident/fellow and agree with the findings and plan as documented. documented in this encounter Plan of Treatment Upcoming Encounters Date Type Department Care Team (Late st Contact Info) Description 04/26/2025 3:40 PM EST Office Visit [facility] [place] [address] [place] [address] Sasha Rico MD [address] [place] [address] 12/01/2025 10:00 AM EDT Office Visit [facility] General & Weight Loss Surgery [address] [place] [address] Angel Avila MD [address] [address] documented as of this encounter Procedures Procedure Name Priority Date/Time Associated Diagnosis Comments TROPONIN T, HIGH SENSITIVITY, 2 HOUR, PLASMA Timed 01/02/2025 3:00 PM EDT XR CHEST 1 VIEW STAT 01/02/2025 2:22 PM EDT TROPONIN T, HIGH SENSITIVITY, 0 HOUR, PLASMA, REFLEX TO 2 HOUR STAT 01/02/2025 12:58 PM EDT CBC WITH AUTO DIFFERENTIAL STAT 01/02/2025 12:58 PM EDT MAGNESIUM, PLASMA STAT 01/02/2025 12: 58 PM EDT COMPREHENSIVE METABOLIC PANEL, PLASMA STAT 01/02/2025 12:58 PM EDT ECG ADULT STAT 01/02/2025 12:15 PM EDT documented in this encounter Results * (ABNORMAL) Troponin T, High Sensitivity, 2 Hour, Plasma (01/02/2025 3:00 PM EDT) Troponin T, High Sensitivity, 2 Hour 91(H) <19 ng/L 01/02/2025 3:26 PM EDT [facility] Troponin Delta 9 <10 ng/L 01/02/2025 3:26 PM EDT [facility] Troponin Delta Interpretation Not Significant 01/02/2025 3:26 PM EDT [facility] Comment:Not Significant. No acute change in troponin observed between the baseline and 2 hour samples. Blood Venous blood specimen / Unknown Venipuncture / Unknown 01/02/2025 3:00 PM EDT 01/02/2025 3:04 PM EDT us Willam Ray MD LAB BLOOD ORDERABLES Final Re sult [facility] [address] [place] [address] * XR Chest 1 View (01/02/2025 2:22 PM EDT) Anatomical Region Laterality Modality Chest Digital Radiogra phy Impressions 01/02/2025 2:29 PM EDT No acute finding. CRITICAL RESULT: No. COMMUNICATION: Per this written report. Drafted by Tonio Reina MD on 01/02/2025 2:28 PM Final report signed by Tonio Reina MD on 01/02/2025 2:29 PM Narrative 01/02/2025 2:29 PM EDT CLINICAL INDICATION: SYNCOPE TECHNIQUE: XR CHEST 1 VIEW COMPARISON: None. FINDINGS: Lungs are clear. AICD device present from left subclavian approach Heart and mediastinal contours are within normal limits. No pneumothorax. No pleural effusion. Bony structures are unremarkable. Procedure Note Tonio Reina MD - 01/02/2025 CLINICAL INDICATION: SYNCOPE TECHNIQUE: XR CHEST 1 VIEW COMPARISON: None. FINDINGS: Lungs are clear. AICD device present from left subclavian approach Heartand mediastinal contours are within normal limits. No pneumothorax. Nopleural effusion. Bony structures are unremarkable. IMPRESSION: No acute finding. CRITICAL RESULT: No. COMMUNICATION: Per this written report. Drafted by Tonio Reina MD on 01/02/2025 2:28 PM Final report signed by Tonio Reina MD on 01/02/2025 2:29 PM Result Haven Ray MD IMG XR PROCEDURES Final Resul t * (ABNORMAL) Troponin now and 120 min (01/02/2025 12:58 PM EDT) Troponin T, High Sensitivity, 0 Hour 100(H) <19 ng/L 01/02/2025 1:24 PM EDT [facility] Blood Venous blood specimen / Unknown Venipuncture / Unknown 01/02/2025 12:58 PM EDT 01/02/2025 1:01 PM EDT Result Haven Ray MD LAB BLOOD ORDERABLES Final Re sult Performing Organization Address [facility] de Phone Number [facility] [address] [place] [address] * Magnesium (01/02/2025 12:58 PM EDT) Magnesium, Plasma 2.0 1.9 - 2.4 mg/dL 01/02/2025 1:24 PM EDT [facility] Blood Venous blood specimen / Unknown Venipuncture / Unknown 01/02/2025 12:58 PM EDT 01/02/2025 1:01 PM EDT Result Haven Ray MD LAB BLOOD ORDERABLES Final Re sult [facility] [address] [place] [address] * (ABNORMAL) CMP (01/02/2025 12:58 PM EDT) Glucose, Plasma 129(H) 74 - 99 mg/dL 01/02/2025 1:24 PM EDT [facility] BUN, Plasma 12 8 - 23 mg/dL 01/02/2025 1:24 PM EDT [facility] Creatinine, Plasma 1.03 0.70 - 1.20 mg/dL 01/02/2025 1:24 PM EDT [facility] BUN/Creatinine Ratio 12 01/02/2025 1:24 PM EDT [facility] Sodium, Plasma 139 136 - 145 mmol/L 01/02/2025 1:24 PM EDT [facility] Potassium, Plasma 5.2(H) 3.6 - 4.9 mmol/L 01/02/2025 1:24 PM EDT [facility] Chloride, Plasma 108(H) 97 - 107 mmol/L 01/02/2025 1:24 PM EDT [facility] CO2, Plasma 20(L) 22 - 29 mmol/L 01/02/2025 1:24 PM EDT [facility] Anion Gap 11 6 - 16 mmol/L 01/02/2025 1:24 PM EDT [facility] Total Calcium, Plasma 8.6(L) 8.9 - 10.2 mg/dL 01/02/2025 1:24 PM EDT [facility] Total Protein 6.4 6.3 - 7.9 g/dL 01/02/2025 1:24 PM EDT [facility] Albumin, Plasma 3.3(L) 3.5 - 5.2 g/dL 01/02/2025 1:24 PM EDT [facility] AST, Plasma 19 10 - 50 U/L 01/02/2025 1:24 PM EDT [facility] ALT, Plasma 21 10 - 50 U/L 01/02/2025 1:24 PM EDT [facility] Alkaline Phosphatase, Plasma 51 40 - 115 U/L 01/02/2025 1:24 PM EDT [facility] Total Bilirubin, Plasma 0.4 0.2 - 1.1 mg/dL 01/02/2025 1:24 PM EDT [facility] eGFRcr 82.6 mL/min/1.7 3m*2 01/02/2025 1:24 PM EDT [facility] Comment:Reported eGFRcr in m L/min/1.73m2 is based the CKD-EPI 2020 equation that does not use a race coefficient. Blood Venous blood specimen / Unknown Venipuncture / Unknown 01/02/2025 12:58 PM EDT 01/02/2025 1:01 PM EDT us Willam Ray MD LAB BLOOD ORDERABLES Final Re sult [facility] [address] [place] [address] * (ABNORMAL) CBC w/diff (01/02/2025 12:58 PM EDT) WBC Count 7.62 3.70 - 10.30 10*3/uL LAB HEMATOLOGY METHOD 01/02/2025 1:03 PM EDT [facility] RBC Count 4.53(L) 4.60 - 6.10 10*6/uL LAB HEMATOLOGY METHOD 01/02/2025 1:03 PM EDT [facility] HGB 13.8 13.7 - 17.5 g/dL LAB HEMATOLOGY METHOD 01/02/2025 1:03 PM EDT [facility] HCT 42.2 40.0 - 51.0 % LAB HEMATOLOGY METHOD 01/02/2025 1:03 PM EDT [facility] Platelet Count 150(L) 155 - 369 10*3/uL LAB HEMATOLOGY METHOD 01/02/2025 1:03 PM EDT [facility] MCV 93 79 - 98 fL LAB HEMATOLOGY METHOD 01/02/2025 1:03 PM EDT [facility] MCH 30.5 26.0 - 32.0 pg LAB HEMATOLOGY METHOD 01/02/2025 1:03 PM EDT [facility] MCHC 32.7 30.7 - 35.5 g/dL LAB HEMATOLOGY METHOD 01/02/2025 1:03 PM EDT [facility] RDW 15.0(H) 11.5 - 14.5 % LAB HEMATOLOGY METHOD 01/02/2025 1:03 PM EDT [facility] MPV 10.9 8.8 - 12.5 fL LAB HEMATOLOGY METHOD 01/02/2025 1:03 PM EDT [facility] nRBC 0.0 <=0.0 per 100 WBCs LAB HEMATOLOGY METHOD 01/02/2025 1:03 PM EDT [facility] Differential Type Automated LAB HEMATOLOGY METHOD 01/02/2025 1:03 PM EDT [facility] Neutrophils % 59 % LAB HEMATOLOGY METHOD 01/02/2025 1:03 PM EDT [facility] Lymphocytes % 31 % LAB HEMATOLOGY METHOD 01/02/2025 1:03 PM EDT [facility] Monocytes % 8 % LAB HEMATOLOGY METHOD 01/02/2025 1:03 PM EDT [facility] Eosinophils % 1 % LAB HEMATOLOGY METHOD 01/02/2025 1:03 PM EDT [facility] Basophils % 1 % LAB HEMATOLOGY METHOD 01/02/2025 1:03 PM EDT [facility] Immature Granulocytes % 0 % LAB HEMATOLOGY METHOD 01/02/2025 1:03 PM EDT [facility] Neutrophils Absolute 4.48 1.60 - 6.10 10*3/uL LAB HEMATOLOGY METHOD 01/02/2025 1:03 PM EDT [facility] Lymphocytes Absolute 2.38 1.20 - 3.90 10*3/uL LAB HEMATOLOGY METHOD 01/02/2025 1:03 PM EDT [facility] Monocytes Absolute 0.59 0.30 - 0.90 10*3/uL LAB HEMATOLOGY METHOD 01/02/2025 1:03 PM EDT [facility] Eosinophils Absolute 0.11 0.00 - 0.50 10*3/uL LAB HEMATOLOGY METHOD 01/02/2025 1:03 PM EDT [facility] Basophils Absolute 0.04 0.00 - 0.10 10*3/uL LAB HEMATOLOGY METHOD 01/02/2025 1:03 PM EDT [facility] Immature Granulocytes Absolute 0.02 0.00 - 0.06 10*3/uL LAB HEMATOLOGY METHOD 01/02/2025 1:03 PM EDT [facility] Blood Venous blood specimen / Unknown Venipuncture / Unknown 01/02/2025 12:58 PM EDT 01/02/2025 1:01 PM EDT Narrative [facility] - 01/02/2025 1:03 PM EDT Therapeutic decision making should be based on absolute values, rather than percentages. us Willam Ray MD LAB BLOOD ORDERABLES Final Re sult Performing Organization Address City/[facility]/ZIP Co de Phone Number [facility] [address] [place] [address] * EKG now - STAT (adult) (01/02/2025 12:15 PM EDT) EKG DIAGNOSIS CLASS Abnormal MUSE ECG Ventricular Rate 70 BPM MUSE ECG Atrial Rate [address] Interval 158 ms MUSE ECG QRSD Interval 88 ms MUSE ECG QT Interval 428 ms MUSE ECG QTC Interval 462 ms MUSE ECG P [place] 97 degrees MUSE ECG R [place] -17 degrees MUSE ECG T Wave [place] 17 degrees MUSE ECG Diagnosis Normal sinus rhythm MUSE ECG Diagnosis Poor R-wave progression Cannot rule out Anterior infarct , age undetermined Need clinical information and correlation MUSE ECG Diagnosis Abnormal ECG MUSE ECG Diagnosis MUSE ECG Diagnosis Confirmed by Praneeth Zamarripa ([id number]) on 01/02/2025 12:56:00 PM MUSE ECG 01/02/2025 12:1 5 PM EDT 01/02/2025 12:56 PM EDT us William Freitas MD ECG ORDERABLES Final Resul t Performing Organization Address City/[facility]/ZIP Co de Phone Number MUSE ECG documented in this encounter Visit Diagnoses Diagnosis Syncope and collapse- Primary documented in this encounter Additional Health Concerns Assessment Noted Time PHQ-9 Depression Total Score: 6 12/03/19 25 10:55 AM EDT A fall risk assessment has been complete d for the patient 12/02/2024 10:54 AM EDT A Body Mass Index follow-up plan has been documented for the patient 12/02/2024 5:11 PM EDT documented as of this encounter Care Teams District Gauger Relationship Specialty Start Date End Date Francisco Javier Cooley MD [address] [facility] [address] [place] [address] PCP - General 08/18/20 documented as of this encounter
--- OUTSIDE RECORDS SUMMARY | 2025-01-06 11:07 | XMS_ITS | Encounter Summary ---
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 2 HYDROcodone-acetami nophen ([place]) 5-325 MG tablet Take 1 tablet (5 mg of hydrocodone) by mouth every 4 (four) hours if needed for severe pain. 30 tablet 3 losartan (Cozaar) 50 MG tablet Take 1 tablet (50 mg) by mouth 1 (one) time each day. 2 metFORMIN (Glucophage) 500 MG tabletIndications:T ype 2 diabetes mellitus with other specified complication, unspecified whether prison insulin use Take 1 tablet by mouth [...] day. 5 documented as of this encounter Plan of Treatment Upcoming Encounters Date Type Department Care Team (Late st Contact Info) Description 04/26/2025 3:40 PM EST Office Visit [facility] [place] [address] [facility] [place] [address] Sasha Rico MD [address] [place] [address] 12/01/2025 10:00 AM EDT Office Visit [facility] General & Weight Loss Surgery [address] [place] [address] Angel Avila MD [address] [place] [address] documented as of this encounter Procedures Procedure Name Priority Date/Time Associated Diagnosis Comments CARDIAC DEVICE CHECK - REMOTE - ICD Routine 01/06/2025 11:37 AM EDT 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 documented in this encounter Results * CARDIAC DEVICE CHECK - REMOTE - ICD (01/06/2025 11:37 AM EDT) Anatomical Region Laterality Modality Other Narrative 01/06/2025 11:51 AM EDT Images from the original result were not included. [facility] - Device [facility] Remote CIED Report Name: Darrin Vargas Date: 01/06/2025 : 1965 Age: 59 y.o. Reporting period: Reporting period is the last 91 days, with at least 30 days of remote monitoring. Interim reports, if any, reviewed and addressed previously; see remote alert entries for more details. Most recent report, dated 01/06/2025, analysis and summary as follows: Device: Beal single chamber ICD Permanent Programming Mode: VVI LRL: 40 bpm Tachy Zones : VT 171 bpm VF > 214 bpm Available measurements within normal limits. See attached report. Pacing Percentage: Ventricular: <1 % Battery: Service time remainin.4 years Presenting rhythm: Regular ventricular rhythm, likely sinus rhythm. Evaluation: Demonstrates appropriate sensing: Yes Demonstrates pacing capture: Yes Recent slight increase in daily HR trend, coinciding to a certain extent with activity trend Arrhythmias: No new arrhythmia of significance since last CIED evaluation. Summary: CIED functioning as expected, with given programming and data. See copy of vendor report in Media us Leticia Batres Brandon NIX CV IMPLANTABLE CARDIAC DEV ICE PROCEDURES Final Result documented in this encounter Visit Diagnoses Diagnosis ICD (implantable cardioverter-defibrillator) in place documented in this encounter Additional Health Concerns Assessment Noted Time PHQ-9 Depression Total Score: 6 12/03/19 25 10:55 AM EDT A fall risk assessment has been complete d for the patient 12/02/2024 10:54 AM EDT A Body Mass Index follow-up plan has been documented for the patient 12/02/2024 5:11 PM EDT documented as of this encounter Care Teams Bridge Design Engineer Relationship Specialty Start Date End Date Francisco Javier Cooley MD [address] [place] [address] PCP - General 08/18/20 documented as of this encounter
--- OUTSIDE RECORDS SUMMARY | 2025-01-19 09:49 | XMS_ITS | Encounter Summary ---
Author Organization [facility] Address [address] [place] [address] Care Team Providers Care Cold Header Operator Name Role Phone Francisco Javier Cooley MD Primary Care Provider [phone] Encounter Details Date Type Department Care Team (Latest Contact Info) Description 01/02/2025 Travel Social History Tobacco Use Types Packs/Day [...] place to sleep or slept in a intermediate (including now)? 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 Wish to be (Past 1 Month) No 01/02/2025 11:57 AM EDT Radha Joyner, SOFIA 2. Non-Specific Active Suicidal Thoughts (Past 1 Month) No 01/02/2025 11:57 AM EDT Radha Joyner, SOFIA 6. Suicidal Behavior (Lifetime) No 01/02/2025 11:57 AM EDT Radha Joyner RN documented as of this encounter Plan of Treatment Upcoming Encounters Date Type Department Care Team (Late st Contact Info) Description 04/26/2025 3:40 PM EST Office Visit [facility] [place] [address] [place] [address] Sasha Rico MD [address] [place] [address] 12/01/2025 10:00 AM EDT Office Visit [facility] [address] [place] [address] Angel Avila MD [address] [address] documented as of this encounter Visit Diagnoses [...] documented as of this encounter Care Teams Cold Header Operator Relationship Specialty Start Date End Date Francisco Javier Cooley MD [address] [address] PCP - General 08/18/20 documented as of this encounter
--- OUTSIDE RECORDS SUMMARY | 2025-01-19 09:49 | XMS_ITS | Clinical Summary ---
Author Organization [facility] Address [address] [place] [address] Care Team Providers Care Communication Equipment Mechanic Name Role Phone Francisco Javier Cooley MD Primary Care Provider [phone] Allergies Active Allergy Reactions Criticality Noted Date Comments Penicillins Shortness of breath High 08/21/2015 Medications * This document contains information received from the source organization and may not represent a complete record from that organization. allopurinol (Zyloprim) 300 MG tablet Take 1 tablet (300 mg) by mouth 1 (one) time each day. 01/30/20 21 Active gabapentin (Neurontin) 300 MG capsule Take 1 capsule (300 mg) by mouth every night. 09/15/19 22 Active losartan (Cozaar) 50 MG tablet Take 1 tablet (50 mg) by mouth 1 (one) time each day. 10/25/19 22 Active pravastatin (Pravachol) 80 MG tablet Take 1 tablet (80 mg) by mouth 1 (one) time each day in the evening. 10/23/19 22 Active tadalafil (Cialis) 5 MG tablet Take 1 tablet (5 mg) by mouth 1 (one) time each day. 12/21/19 17 Active ondansetron ODT (Zofran-ODT) 4 MG disintegrating tablet Take 1 tablet (4 mg) by mouth every 8 (eight) hours if needed for nausea or vomiting. 30 tablet 12/29/19 23 Active Additional Information Patient not taking.Reported on 01/29/2024 acetaminophen (Tylenol) 325 MG tablet Take 2 tablets (650 mg) by mouth every 6 (six) hours if needed (pain, temperature greater than 100.5F or 38.0 C). 100 tablet 12/29/19 Active HYDROcodone-acetam inophen (Olivet) 5-325 MG tablet Take 1 tablet (5 mg of hydrocodone) by mouth every 4 (four) hours if needed for severe pain. 30 tablet 12/29/19 Active Additional Information Patient not taking.Reported on [...] other nostril if symptoms continue 1 each 02/19/20 Active cyanocobalamin 1000 MCG tablet Take 1 tablet (1,000 mcg) by mouth 1 (one) time each day. Active sildenafil (Viagra) 100 MG tablet Take 1 tablet (100 mg) by mouth 1 (one) time each day if needed for erectile dysfunction. Active Eliquis 5 MG tablet Take 1 tablet (5 mg) by mouth 2 (two) times a day. Do not resume taking until 12/29/22 180 tablet 3 09/09/19 Active alprostadil-phento grazyna-papaverine (Trimix) 20-1-30 mcg-mg-mg/mL intracavernosal injection 0.1-0.5 mL by Intracavernosal route 1 (one) time each day if needed for erectile dysfunction. Active metFORMIN (Glucophage) 500 MG tabletIndications: Type 2 diabetes mellitus with other specified complication, unspecified whether long-term insulin use Take 1 tablet by mouth 2 times a day with meals. 180 tablet 3 08/12/19 25 2025 Active ezetimibe (Zetia) 10 MG tablet TAKE ONE TABLET BY MOUTH EVERY DAY 60 tablet 09/16/19 25 Active sotalol (Betapace) 120 MG tabletIndications: Atrial fibrillation, unspecified type (CMS/HCC) Take 1 tablet by mouth 2 times a day. MUST KEEP APPOINTMENT IN DEC FOR FUTURE REFILLS. 180 tablet 11/11/19 25 Active carvedilol (Coreg) 25 MG tablet Take 0.5 tablets by mouth 2 times a day with meals. 1/2 tab BID. MUST KEEP APPOINTMENT IN SEPT FOR FUTURE REFILLS. 90 tablet 11/11/19 25 Active vilazodone (Viibryd) 20 MG tablet Take 1 tablet by mouth 1 time each day. 11/25/19 25 Active Active Problems Problem Noted Date Diagnosed Date Adjustment disorder with mixed anxiety and depre ssed mood 2024 Obesity (BMI 30-39.9) 08/17/2024 Encounter for post surgical wound check 04/24/19 24 Proteinuria 02/24/2023 02/24/2023 Abscess of abdominal wall 02/13/2023 History of Vlad-en-Y gastric bypass 01/07/2023 Assessment & Plan (12/02/2024 11:50 AM EDT): Orders: APTT; Future Comprehensive Metabolic Panel, Plasma; Future Hemoglobin A1c; Future Iron, Plasma; Future Lipid Profile, Plasma; Future PTH Intact Total; Future Vitamin B12, Serum; Future Vitamin D 25 Hydroxy; Future CBC and Differential; Future Magnesium; Future Vitamin B1, Whole Blood; Future Copper, Serum or Plasma; Future Neuropathy 10/17/2022 Tachycardia 09/10/2022 Obesity, Class III, BMI 40-49.9 (morbid obesity) 05/05/2018 ICD (implantable cardioverter-defibrillator) in place 06/10/2017 Hyperlipidemia 12/20/2016 Obesity, Class II, BMI 35-39.9 01/12/2016 1 04/26/2022 Ventricular fibrillation 11/03/2015 Cardiomyopathy 11/03/2015 Overview (02/24/2023): [...] to warfarin and sotalol therapy, relatively noncompliant. Type 2 diabetes mellitus with other specified [...] long-term current use of insulin 12/20/2016 02/24/2023 Diarrhea 12/22/2015 02/24/2023 12/26/2024 Gastroenteritis 12/22/2015 02/24/2023 12/26/2024 Fatigue 11/03/2015 02/24/2023 12/26/2024 Encounters Date Type Department Care Team Description 01/06/2025 11:07 AM EDT - 01/06/2025 11:59 PM EDT Hospital Encounter Cardiac Imaging [address] [place] [address] 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 Discharge Disposition: Home or Self Care 01/06/2025 Travel 01/02/2025 11:46 AM EDT - 01/02/2025 5:16 PM EDT Emergency [facility] [address] [place] [address] William Zhang MD Hamm, Joel M, MD Syncope and collapse (Primary Dx) Discharge Disposition: Home or Self Care 01/02/2025 Travel 12/20/2024 Telephone Cardiac Imaging [address] [place] [address] Jodi Goodson 12/02/2024 11:00 AM EDT Office Visit [facility] [address] [place] [phone] Angel Avila MD History of Vlad-en-Y gastric bypass (Primary Dx); Type 2 diabetes mellitus without complication, without long-term current use of insulin 12/02/2024 Travel 11/25/2024 Telephone Cardiac Imaging [address] [place] [address] Jodi Goodson 11/25/2024 Travel 11/19/2024 Travel 11/16/2024 Telephone Cardiac Imaging [address] [place] [address] Jodi Goodson 11/10/2024 [facility] [place] [address] [place] [address] Leticia Taylor APRN Atrial fibrillation, unspecified type ([facility]/HCC) 11/02/2024 Telephone Cardiac Imaging [address] [place] [address] Jodi Goodson from Last 3 Months Family History Medical History Relation Name Comments Diabetes type II Brother Will Cardiac disorder Father En Vargas Diabetes Father En [place]argas Cardiac disorder Mother Diabetes Other 1 Diabetes Other 2 Anesthesia problems Neg Hx Malig Hyperthermia Neg Hx Relation Name Status Comments Brother Will Father En Vargas Mother Other 1 Other 2 Social History [...] place to sleep or slept in a long-term (including now)? No 02/17/2023 PHQ-9 Answer Date [...] drink first t ayala in the morning (EYE-PROBATE JUDGE) to steady your nerves or to get [...] Mass Index 35.14 01/02/2025 11:53 AM EDT Plan of Treatment Upcoming Encounters Date Type Department Care Team (Late st Contact Info) Description 04/26/2025 3:40 PM EST Office Visit [facility] [place] [address] [place] [address] Sasha Rico MD [address] [place] [address] 12/01/2025 10:00 AM EDT Office Visit [facility] [address] [place] [address] Angel Avila MD [address] [phone] Health Maintenance Due Date Last Done Comments [facility]-Infant/Child/Adol SDOH Screenings 1965 Diabetes: Dental Exam 10/21/1973 [facility]- SDOH Screenings 10/21/1981 [facility]-Adult SDOH Screenings 10/21/1981 CT Colonography 10/21/2008 Colonoscopy 10/21/2008 FIT-DNA 10/21/2008 FIT 10/21/2008 FOBT 10/21/2008 Sigmoidoscopy 10/21/2008 [facility]-Colorectal Cancer Screening 10/21/2008 [facility]-Zoster Vaccines (1 of 2) 10/21/2013 [id number] Vaccine (2 - Pfizer risk series) 02/13/2022 01/23/2022 [facility]-RSV Vaccine: 60+ Years or (1 - Risk 60-74 years 1-dose series) 2023 [facility]-Medicare Annual Wellness (AWV) 09/29/2024 09/30/2023 [facility]-Influenza Vaccine (#1) 12/06/202401/29, 03/26/2023, 01/16/2022, Additional history exists [facility]-Diabetes: Hemoglobin A1C 03/03/2025, 08/11/2024, 01/29/2024, Additional history exists [facility]-Depression Screening 12/02/2025 12/02/2024, 11/06 [facility]-DTaP,Tdap,and Td Vaccines (2 - Td or Tdap) 02/15/2034 02/16/2024 [facility]-Hepatitis A Vaccines Aged Out 02/12/2018 No longer eligible based on patient's age to complete this topic [facility]-HIV Screening Completed 06/29/2022 [facility]-Hepatitis C Screening Completed 06/29/2022, [facility]-Pneumococcal Vaccine: 50+ Years Completed 06/04/2023, 02/12/2018, 12/19/2015 [facility]-Obesity Intervention Completed 025, 08/11/2024, 01/29/2024, Additional history exists HPV Vaccines Aged Out [...] this topic Medical Devices Implanted Type Area Ged Teacher Device Identifier Shelf Expiration Date Model / Serial / Lot Pacemaker Pacemaker Left: Chest Procedures Procedure Name Priority Date/Time Associated Diagnosis Comments CARDIAC DEVICE CHECK - REMOTE - ICD Routine 01/06/2025 11:37 AM EDT ICD (implantable cardioverter-defib rillator) in place TROPONIN T, HIGH SENSITIVITY, 2 HOUR, PLASMA Timed 01/02/2025 3:00 PM EDT XR CHEST 1 VIEW STAT 01/02/2025 2:22 PM EDT TROPONIN T, HIGH SENSITIVITY, 0 HOUR, PLASMA, REFLEX TO 2 HOUR STAT 01/02/2025 12:58 PM EDT MAGNESIUM, PLASMA STAT 01/02/2025 12: 58 PM EDT COMPREHENSIVE METABOLIC PANEL, PLASMA STAT 01/02/2025 12:58 PM EDT CBC WITH AUTO DIFFERENTIAL STAT 01/02/2025 12:58 PM EDT ECG ADULT STAT 01/02/2025 12:15 PM EDT APTT Routine 12/02/2024 11:56 AM EDT History of Vlad-en-Y gastric bypass COMPREHENSIVE METABOLIC PANEL, PLASMA Routine 12/02/2024 11:56 AM EDT History of Vlad-en-Y gastric bypass HEMOGLOBIN A1C Routine 12/02/2024 11:56 AM EDT History of Vlad-en-Y gastric bypass IRON, PLASMA Routine 12/02/2024 11:56 AM EDT History of Vlad-en-Y gastric bypass LIPID PROFILE, PLASMA Routine 12/02/2024 11:56 AM EDT History of Vlad-en-Y gastric bypass PTH INTACT TOTAL Routine 12/02/2024 11:5 6 AM EDT History of Vlad-en-Y gastric bypass VITAMIN B12, SERUM Routine 12/02/2024 11 :56 AM EDT History of Vlad-en-Y gastric bypass VITAMIN D 25 HYDROXY Routine 12/02/2024 11:56 AM EDT History of Vlad-en-Y gastric bypass CBC WITH AUTO DIFFERENTIAL Routine 12/02/2024 11:56 AM EDT History of Vlad-en-Y gastric bypass MAGNESIUM, PLASMA Routine 12/02/2024 11: 56 AM EDT History of Vlad-en-Y gastric bypass VITAMIN B1 (THIAMINE), WHOLE BLOOD (SO) Routine 12/02/2024 11:56 AM EDT History of Vlad-en-Y gastric bypass COPPER, SERUM OR PLASMA (SO) Routine 12/02/2024 11:56 AM EDT History of Vlad-en-Y gastric bypass HEPATITIS C ANTIBODY - ED W/REFLEX TO HCV QUANT PCR STAT 06/29/2022 6:52 PM EDT HIV 1/2 ANTIBODY/ANTIGEN SCREEN WITH REFLEX TO HIV I/II DIFFERENTIATION STAT 06/29/2022 6:52 PM EDT from Last 3 Months or Most Recently Relevant to Health Maintenance Results * CARDIAC DEVICE CHECK - REMOTE - ICD (01/06/2025 11:37 AM EDT) Anatomical Region Laterality Modality Other Narrative 01/06/2025 11:51 AM EDT Images from the original result were not included. [facility] EP - Device Clinic Remote CIED [...] See copy of vendor report in Media Leticia Batres Brandon NIX CV IMPLANTABLE CARDIAC DEV ICE PROCEDURES Final Result * (ABNORMAL) Troponin T, High Sensitivity, 2 Hour, Plasma (01/02/2025 3:00 PM EDT) Troponin T, High Sensitivity, 2 Hour 91(H) <19 ng/L 01/02/2025 3:26 PM EDT [facility] Troponin Delta 9 <10 ng/L 01/02/2025 3:26 PM EDT [facility] Troponin Delta Interpretation Not Significant 01/02/2025 3:26 PM EDT [facility] Comment:Not Significant. No acute change in troponin observed between the baseline and 2 hour samples. Blood Venous blood specimen / Unknown Venipuncture / Unknown 01/02/2025 3:00 PM EDT 01/02/2025 3:04 PM EDT us Willam Ray MD LAB BLOOD ORDERABLES Final Re sult [facility] [address] [place] [address] * XR Chest 1 View (01/02/2025 2:22 [...] Tonio Reina MD on 01/02/2025 2:29 PM us Willam Ray MD IMG XR PROCEDURES Final Resul t * (ABNORMAL) Troponin now and 120 min (01/02/2025 12:58 PM EDT) Troponin T, High Sensitivity, 0 Hour 100(H) <19 ng/L 01/02/2025 1:24 PM EDT [facility] Blood Venous blood specimen / Unknown Venipuncture / Unknown 01/02/2025 12:58 PM EDT 01/02/2025 1:01 PM EDT us Willam Ray MD LAB BLOOD ORDERABLES Final Re sult [facility] [address] [place] [address] * (ABNORMAL) CBC w/diff (01/02/2025 12:58 PM EDT) Only the most recent of2 resultswithin the time period is included. WBC Count 7.62 3.70 - 10.30 10*3/uL LAB HEMATOLOGY METHOD 01/02/2025 1:03 PM EDT [facility] RBC Count 4.53(L) 4.60 - 6.10 10*6/uL LAB HEMATOLOGY METHOD 01/02/2025 1:03 PM EDT [facility] HGB 13.8 13.7 - 17.5 g/dL LAB HEMATOLOGY METHOD 01/02/2025 1:03 PM EDT [facility] HCT 42.2 40.0 - 51.0 % LAB HEMATOLOGY METHOD 01/02/2025 1:03 PM EDT [facility] Platelet Count 150(L) 155 - 369 10*3/uL LAB HEMATOLOGY METHOD 01/02/2025 1:03 PM EDT [facility] MCV 93 79 - 98 fL LAB HEMATOLOGY METHOD 01/02/2025 1:03 PM EDT [facility] MCH 30.5 26.0 - 32.0 pg LAB HEMATOLOGY METHOD 01/02/2025 1:03 PM EDT [facility] MCHC 32.7 30.7 - 35.5 g/dL LAB HEMATOLOGY METHOD 01/02/2025 1:03 PM EDT [facility] RDW 15.0(H) 11.5 - 14.5 % LAB HEMATOLOGY METHOD 01/02/2025 1:03 PM EDT [facility] MPV 10.9 8.8 - 12.5 fL LAB HEMATOLOGY METHOD 01/02/2025 1:03 PM EDT [facility] nRBC 0.0 <=0.0 per 100 WBCs LAB HEMATOLOGY METHOD 01/02/2025 1:03 PM EDT [facility] Differential Type Automated LAB HEMATOLOGY METHOD 01/02/2025 1:03 PM EDT [facility] Neutrophils % 59 % LAB HEMATOLOGY METHOD 01/02/2025 1:03 PM EDT [facility] Lymphocytes % 31 % LAB HEMATOLOGY METHOD 01/02/2025 1:03 PM EDT [facility] Monocytes % 8 % LAB HEMATOLOGY METHOD 01/02/2025 1:03 PM EDT [facility] Eosinophils % 1 % LAB HEMATOLOGY METHOD 01/02/2025 1:03 PM EDT [facility] Basophils % 1 % LAB HEMATOLOGY METHOD 01/02/2025 1:03 PM EDT [facility] Immature Granulocytes % 0 % LAB HEMATOLOGY METHOD 01/02/2025 1:03 PM EDT [facility] Neutrophils Absolute 4.48 1.60 - 6.10 10*3/uL LAB HEMATOLOGY METHOD 01/02/2025 1:03 PM EDT [facility] Lymphocytes Absolute 2.38 1.20 - 3.90 10*3/uL LAB HEMATOLOGY METHOD 01/02/2025 1:03 PM EDT [facility] Monocytes Absolute 0.59 0.30 - 0.90 10*3/uL LAB HEMATOLOGY METHOD 01/02/2025 1:03 PM EDT [facility] Eosinophils Absolute 0.11 0.00 - 0.50 10*3/uL LAB HEMATOLOGY METHOD 01/02/2025 1:03 PM EDT [facility] Basophils Absolute 0.04 0.00 - 0.10 10*3/uL LAB HEMATOLOGY METHOD 01/02/2025 1:03 PM EDT [facility] Immature Granulocytes Absolute 0.02 0.00 - 0.06 10*3/uL LAB HEMATOLOGY METHOD 01/02/2025 1:03 PM EDT [facility] Blood Venous blood specimen / Unknown Venipuncture / Unknown 01/02/2025 12:58 PM EDT 01/02/2025 1:01 PM EDT Narrative [facility] - 01/02/2025 1:03 PM EDT Therapeutic decision making should be based on absolute values, rather than percentages. us Willam Ray MD LAB BLOOD ORDERABLES Final Re sult Performing Organization Address [facility]/ZIP Co de Phone Number [facility] [address] [place] [address] * Magnesium (01/02/2025 12:58 PM EDT) Only the most recent of2 resultswithin the time period is included. Magnesium, Plasma 2.0 1.9 - 2.4 mg/dL 01/02/2025 1:24 PM EDT [facility] Blood Venous blood specimen / Unknown Venipuncture / Unknown 01/02/2025 12:58 PM EDT 01/02/2025 1:01 PM EDT us Willam Ray MD LAB BLOOD ORDERABLES Final Re sult Performing Organization Address [facility] de Phone Number [facility] [address] [place] [address] * (ABNORMAL) CMP (01/02/2025 12:58 PM EDT) Only the most recent of2 resultswithin the time period is included. Glucose, Plasma 129(H) 74 - 99 mg/dL 01/02/2025 1:24 PM EDT [facility] BUN, Plasma 12 8 - 23 mg/dL 01/02/2025 1:24 PM EDT [facility] Creatinine, Plasma 1.03 0.70 - 1.20 mg/dL 01/02/2025 1:24 PM EDT [facility] BUN/Creatinine Ratio 12 01/02/2025 1:24 PM EDT [facility] Sodium, Plasma 139 136 - 145 mmol/L 01/02/2025 1:24 PM EDT [facility] Potassium, Plasma 5.2(H) 3.6 - 4.9 mmol/L 01/02/2025 1:24 PM EDT [facility] Chloride, Plasma 108(H) 97 - 107 mmol/L 01/02/2025 1:24 PM EDT [facility] CO2, Plasma 20(L) 22 - 29 mmol/L 01/02/2025 1:24 PM EDT [facility] Anion Gap 11 6 - 16 mmol/L 01/02/2025 1:24 PM EDT [facility] Total Calcium, Plasma 8.6(L) 8.9 - 10.2 mg/dL 01/02/2025 1:24 PM EDT [facility] Total Protein 6.4 6.3 - 7.9 g/dL 01/02/2025 1:24 PM EDT [facility] Albumin, Plasma 3.3(L) 3.5 - 5.2 g/dL 01/02/2025 1:24 PM EDT [facility] AST, Plasma 19 10 - 50 U/L 01/02/2025 1:24 PM EDT [facility] ALT, Plasma 21 10 - 50 U/L 01/02/2025 1:24 PM EDT [facility] Alkaline Phosphatase, Plasma 51 40 - 115 U/L 01/02/2025 1:24 PM EDT [facility] Total Bilirubin, Plasma 0.4 0.2 - 1.1 mg/dL 01/02/2025 1:24 PM EDT [facility] eGFRcr 82.6 mL/min/1.7 3m*2 01/02/2025 1:24 PM EDT [facility] Comment:Reported eGFRcr in m L/min/1.73m2 is based the CKD-EPI 2020 equation that does not use a race coefficient. Blood Venous blood specimen / Unknown Venipuncture / Unknown 01/02/2025 12:58 PM EDT 01/02/2025 1:01 PM EDT us Willam Ray MD LAB BLOOD ORDERABLES Final Re sult [facility] [address] [place] [address] * EKG now - STAT (adult) (01/02/2025 12:15 PM EDT) EKG DIAGNOSIS CLASS Abnormal MUSE ECG Ventricular Rate 70 BPM MUSE ECG Atrial Rate 70 BPM MUSE ECG ME Interval 158 ms MUSE ECG QRSD Interval 88 ms MUSE ECG QT Interval 428 ms MUSE ECG QTC Interval 462 ms MUSE ECG P Hamel 97 degrees MUSE ECG R Hamel -17 degrees MUSE ECG T Wave Hamel 17 degrees MUSE ECG Diagnosis Normal sinus rhythm MUSE ECG Diagnosis Poor R-wave progression Cannot rule out Anterior infarct , age undetermined Need clinical information and correlation MUSE ECG Diagnosis Abnormal ECG MUSE ECG Diagnosis MUSE ECG Diagnosis Confirmed by Praneeth Zamarripa ([id number]) on 01/02/2025 12:56:00 PM MUSE ECG 01/02/2025 12:1 5 PM EDT 01/02/2025 12:56 PM EDT us William Zhang MD ECG ORDERABLES Final Resul t MUSE ECG * Copper, Serum or Plasma (12/02/2024 11:56 AM EDT) Copper, Serum or Plasma 101.1 70.0 - 140.0 ug/dL 12/03/2024 9:29 PM EDT [facility] ([facility]) Blood Venous blood specimen / Unknown Venipuncture / Unknown 12/02/2024 11:56 AM EDT 12/02/2024 12:00 PM EDT Narrative [facility]) - 12/03/2024 9:29 PM EDT INTERPRETIVE INFORMATION: [...] developed and its performance characteristics determined by [facility]. It has not been cleared or approved by the [place] Food and Drug Administration. This test was performed in a CLIA certified laboratory and is intended for clinical purposes. Performed By: [facility] [address] [place] [address] Histologist: Hernan Mac MD, PhD CLIA Number: [id number] Angel Avila MD LAB BLOOD ORDERABLES Final Result [facility]) [address] [place] [id number] * Vitamin D 25 Hydroxy (12/02/2024 11:56 AM EDT) Vitamin D 25 Hydroxy 29.3 20.0 - 80.0 ng/mL 12/02/2024 3:06 PM EDT [facility] Blood Venous blood specimen / Unknown Venipuncture / Unknown 12/02/2024 11:56 AM EDT 12/02/2024 12:00 PM EDT Narrative [facility] - 12/02/2024 3:06 PM EDT Testing performed on [employer], standardized against NIST SRM 2972. When testing [...] BLOOD ORDERABLES Final Result Performing Organization Address City/[facility]/ZIP Co de Phone Number [facility] [address] [place] [address] * APTT (12/02/2024 11:56 AM EDT) aPTT 32 25 - 35 sec LAB COAGULATION METHOD 12/02/2024 2:33 PM EDT [facility] Blood Venous blood specimen / Unknown Venipuncture / Unknown 12/02/2024 11:56 AM EDT 12/02/2024 12:00 PM EDT Angel Avila MD LAB BLOOD ORDERABLES Final Result [facility] [address] [place] [address] * Vitamin B1, Whole Blood (12/02/2024 11:56 AM EDT) Pathologist [facility] VITAMIN B1, WHOLE BLOOD 93 70 - 180 nmol/L 12/05/2024 11:59 AM EDT [facility] ([facility]) Blood Venous blood specimen / Unknown Venipuncture / Unknown 12/02/2024 11:56 AM EDT 12/02/2024 12:00 PM EDT Narrative [facility] ([facility]) - 12/05/2024 11:59 AM EDT INTERPRETIVE INFORMATION: Vitamin B1, Whole Blood This assay measures the concentration of thiamine diphosphate (TDP), the primary active form of vitamin B1. Approximately 90 percent of vitamin B1 present in whole blood is TDP. Thiamine and thiamine monophosphate, which comprise the remaining 10 percent, are not measured. This test was developed and its performance characteristics determined by [facility]. It has not been cleared or approved by the [place] Food and Drug Administration. This test was performed in a CLIA certified laboratory and is intended for clinical purposes. Performed By: [facility] [address] [place] [address] Histologist: Hernan Mac MD, PhD CLIA Number: [id number] Angel Avila MD LAB BLOOD ORDERABLES Final Result [facility] ([facility] [address] [place] [address] * PTH Intact Total (12/02/2024 11:56 AM EDT) [facility] PTH Intact Total 70 9 - 77 pg/mL 12/02/2024 2:48 PM EDT [facility] Blood Venous blood specimen / Unknown Venipuncture / Unknown 12/02/2024 11:56 AM EDT 12/02/2024 12:00 PM EDT Narrative [facility] - 12/02/2024 2:48 PM EDT Assay performed by immunoassay at the [facility]. Performed on [employer] chemiluminescent immunoassay, tractable to the World Health Organization's first international standard for PTH from the [facility], Code 79/500. Results obtained from different test methods or kits cannot be used interchangeably. Angel Avila MD LAB BLOOD ORDERABLES Final Result [facility] [address] [place] [address] * Iron, Plasma (12/02/2024 11:56 AM EDT) Iron, Plasma 86 50 - 170 ug/dL 12/02/2024 2:43 PM EDT [facility] Blood Venous blood specimen / Unknown Venipuncture / Unknown 12/02/2024 11:56 AM EDT 12/02/2024 12:00 PM EDT Angel Avila MD LAB BLOOD ORDERABLES Final Result Performing Organization Address [facility] Co de Phone Number [facility] [address] [place] [address] * (ABNORMAL) Hemoglobin A1c (12/02/2024 11:56 AM EDT) Hemoglobin A1c 7.0(H) <5.7 % 12/02/2024 3:38 PM EDT [facility] Blood Venous blood specimen / Unknown Venipuncture / Unknown 12/02/2024 11:56 AM EDT 12/02/2024 12:00 PM EDT Narrative [facility] - 12/02/2024 3:38 PM EDT HA1C Interpretive Data: Diagnosis of Diabetes: Diabetic > or = 6.5% Pre-diabetic 5.7 to 6.4% Non-diabetic < or = 5.6% Glycemic Targets for Type I and Type II Diabetics: Non- Adults <7.0% Adults <6.0% Children and Adolescents <7.5% Source: [place] [employer]. Standards of medical care in diabetes,2017. Diabetes Care.2017:40 (suppl 1):S1-S135. Angel Avila MD LAB BLOOD ORDERABLES Final Result [facility] [address] [place] [address] * Vitamin B12, Serum (12/02/2024 11:56 AM EDT) Vitamin B12, Serum 280 210 - 1,033 pg/mL 12/02/2024 2:53 PM EDT [facility] Blood Venous blood specimen / Unknown Venipuncture / Unknown 12/02/2024 11:56 AM EDT 12/02/2024 12:00 PM EDT us Angel Avila MD LAB BLOOD ORDERABLES Final Result [facility] [address] [place] [address] * Lipid Profile, Plasma (12/02/2024 11:56 AM EDT) Cholesterol, Plasma 93 <200 mg/dL 12/02/2024 2:43 PM EDT [facility] Comment: Cholesterol Reference Range (age >17 years): Desirable <200 mg/dL Borderline 200 to 239 mg/dL Undesirable >239 mg/dL HDL 45 >=40 mg/dL 12/02/2024 2:43 PM EDT [facility] Comment: HDL Cholesterol Reference Ranges (age >17 years): Female, acceptable > or = 50 mg/dL Male, acceptable > or = 40 mg/dL Triglycerides, Plasma 80 <150 mg/dL 12/02/2024 2:43 PM EDT [facility] Comment: Triglyceride Reference Range (age >17 years): Desirable: <150 mg/dL Borderline high: 150 to 199 mg/dL High: 200 to 499 mg/dL Very high: >499 mg/dL Increased risk of pancreatitis: >1000 mg/dL Cholesterol/HDL Ratio 2 12/02/2024 2:43 PM EDT [facility] LDL, Calculated 32 <100 mg/dL 2:43 PM EDT [facility] Comment: LDL Cholesterol Reference Range (age [...] 12 hours? Yes 12/02/2024 2:43 PM EDT [facility] Blood Venous blood specimen / Unknown Venipuncture / Unknown 12/02/2024 11:56 AM EDT 12/02/2024 12:00 PM EDT Angel Avila MD LAB BLOOD ORDERABLES Final Result Performing Organization Address City/[facility]/ZIP Co de Phone Number [facility] [address] [place] [address] * HIV 1 & 2 Antibody/Antigen Screen (06/29/2022 6:52 PM EDT) [facility] HIV 1 & 2 Antibody/Antigen Screen Non Reactive Non Reactive 06/29/2022 8:45 PM EDT [facility] Comment:Screening for HIV 1 & 2 antibodies, and P24 antigen is NONREACTIVE. No confirmatory testing is required. Blood Venous blood specimen / Unknown Venipuncture / Unknown 06/29/2022 6:52 PM EDT 06/29/2022 7:07 PM EDT Marco Crews MD LAB BLOOD ORDERABLES Fi nal Result Performing Organization Address City/[facility]/ZIP Co de Phone Number [facility] [address] [place] [address] * Hepatitis C Antibody - ED (06/29/2022 6:52 PM EDT) Pathologist [facility] Hepatitis C Antibody Negative Negative 06/29/2022 7:48 PM EDT [facility] Blood Venous blood specimen / Unknown Venipuncture / Unknown 06/29/2022 6:52 PM EDT 06/29/2022 7:07 PM EDT Marco Crews MD LAB BLOOD ORDERABLES Fi nal Result Performing Organization Address City/[facility]/ZIP Co de Phone Number [facility] [address] [place] [address] from Last 3 Months or Most Recently Relevant to Health Maintenance Insurance [facility] MEDICARE MEDICAID OUT OF STATE Advance Directives [...] Patient has decision-making capacity? Yes Care Teams Communication Equipment Mechanic Relationship Specialty Start Date End Date Francisco Javier Cooley MD [address] [place] [address] [facility] - General 08/18/20
--- OUTSIDE RECORDS SUMMARY | 2025-01-19 09:49 | XMS_ITS | Encounter Summary ---
Author Organization Healthcare Address [address] [place] [address] Care Team Providers Care Engrosser Name Role Phone Francisco Javier Cooley MD Primary Care Provider [phone] Encounter Details Date Type Department Care Team (Late st Contact Info) Description 11/25/2024 Telephone Cardiac Imaging [address] [place] [address] Jodi Goodson Social History Tobacco Use Types Packs/Day Years [...] place to sleep or slept in a snf (including now)? No 02/17/2023 CAGE ASSESSMENT Answer [...] drink first t ayala in the morning (EYE-PARTS CONTROL CLERK) to steady your nerves or to get rid of a hangover? 0 02/13/2023 CAGE Questionnaire Score 0 023 Utilities Answer Date Recorded In the past 12 months has th e Sovi, gas, oil, or water company threatened to [...] encounter Miscellaneous Notes * Telephone Encounter - Jodi Goodson - 11/25/2024 9:41 AM EDT Device [facility] called and spoke with patient notifying monitor reconnected after the move on 11/19, but not updated direct alert check. Patient was at work but will send report when home. Thank you. Patient called to confirm we received Darrin Vargas [facility] device report 11-25-24; confirmed and attached. Thank you. documented in this encounter Plan of Treatment Upcoming Encounters Date Type Department Care Team (Late st Contact Info) Description 04/26/2025 3:40 PM EST Office Visit [facility] [place] [address] [place] [address] Sasha Rico MD [address] [place] [address] 12/01/2025 10:00 AM EDT Office Visit [facility] [address] [place] [address] Angel Avila MD [address] [address] documented as of this encounter Visit Diagnoses Not on filedocumented in this encounter Additional Health Concerns Assessment Noted Time A fall risk assessment has been complete d for the patient 01/29/2024 8:56 AM EDT A Body Mass Index follow-up plan has been documented for the patient 08/17/2024 12:57 PM EDT documented as of this encounter Care Teams Engrosser Relationship Specialty Start Date End Date Francisco Javier Cooley MD [address] [place] [address] PCP - General 08/18/20 documented as of this encounter
--- OUTSIDE RECORDS SUMMARY | 2025-01-19 09:49 | XMS_ITS | Encounter Summary ---
[facility] Address [address] [place] [address] Care Team Providers Care Clinical Assistant Professor Name Role Phone Francisco Javier Cooley MD Primary Care Provider [phone] Encounter Details Date Type Department Care Team (Late st Contact Info) Description 11/29/2024 Telephone [facility] [address] [place] [address] [place] [address] Ashleigh Ley, [facility] [address] [place] [address] Social History Tobacco Use Types Packs/Day Years [...] or training? Not on file Preferred Language South Korean 06/07/2022 PHQ-2 Answer Date Recorded Patient Health Questionnaire-9 Score 13 11/24/2024 Sex and Gender Information Value Date Recorded Sex Assigned at Male 07/15/2024 3:56 PM EDT Legal Sex Male 1:25 PM EDT Gender Identity Not on file Sexual Orientation Straight 07/15/2024 3: 56 PM EDT documented as of this encounter Miscellaneous Notes * Telephone Encounter - Donna Head RegSched Rep - 11/29/2024 4:17 PM EDT LVM FOR PT TO CALL US BACK IN REGARDS TO THE PHONE NUMBER FOR THE CRISIS LINE AND THAT WE HAVE HIM SCHEDULED WITH ASHLEIGH AT 10:30 ON FRIDAY IF HE IS ABLE TO MAKE THAT WORK. HUB MAY READ. documented in this encounter Plan of Treatment Upcoming Encounters Date Type Department Care Team (Late st Contact Info) Description 01/19/2025 3:45 PM EDT Telemedicine [facility] INTERNAL MEDICINE & PEDIATRICS 100 [facility] 200 [place] [address] Francisco Javier Cooley MD 100 [facility] 200 [place] [address] documented as of this encounter Goals Goal [...] Diagnoses Not on filedocumented in this encounter Care Teams Clinical Assistant Professor Relationship Specialty Start Date End Date Francisco Javier Cooley MD [address] [address] PCP - General Internal Medicine 12/27/21 documented as of this encounter
--- OUTSIDE RECORDS SUMMARY | 2025-01-19 09:49 | XMS_ITS | Encounter Summary ---
Author Organization [facility] Address [address] [place] [address] Care Team Providers Care Seo Strategist Name Role Phone Francisco Javier Cooley MD Primary Care Provider [phone] Reason for Visit * Reason Comments Med Refill Encounter Details Date Type Department Care Team (Late st Contact Info) Description 12/09/2024 Refill [facility] INTER[facility] MEDICINE & PEDIATRICS 100 [facility] 200 [place] [address] Francisco Javier Cooley MD 100 [facility] 200 [place] [address] Chronic gout without tophus, unspecified cause, unspecified site Social History Tobacco Use Types Packs/Day Years [...] or training? Not on file Preferred Language Ivorian 06/07/2022 PHQ-2 Answer Date Recorded Patient Health Questionnaire-9 Score 13 11/24/2024 Sex and Gender Information Value Date Recorded Sex Assigned at Male 07/15/2024 3:56 PM EDT Legal Sex Male 1:25 PM EDT Gender Identity Not on file Sexual Orientation Straight 07/15/2024 3: 56 PM EDT documented as of this encounter Miscellaneous Notes * Telephone Encounter - Donna Head RegSched Rep - 12/09/2024 3:59 PM EDT CALLED PT TO OFFER HIM A VIRTUAL VISIT WITH JABARI DARIUS TODAY 12/09. HE WAS UNABLE TO TAKE IT DUE TO ONLY WANTING TO BE SEEN IN PERSON. OUR OFFICE ALSO CALLED HIM EARLIER THIS MORNING TO OFFER HIM ANAPPOINTMENT THAT WAS AVAILABLE FOR TOMRROW 12/10 BUT HE WAS ALSO UNABLE TO TAKE THAT DUE TO OTHER CONFLICTS. WE ADVISED HIM THAT JABARI WOULD BE CONTACTING HIM TODAY TO DISCUSS THINGS. documented in this encounter Plan of Treatment Upcoming Encounters Date Type Department Care Team (Late st Contact Info) Description 01/19/2025 3:45 PM EDT Telemedicine [facility] INTERNAL MEDICINE & PEDIATRICS [address] [place] [address] Francisco Javier Cooley MD 100 [facility] 200 [place] [address] documented as of this encounter Goals Goal [...] as of this encounter Visit Diagnoses Diagnosis Chronic gout without tophus, unspecified cause, unspecified site documented in this encounter Care Teams Seo Strategist Relationship Specialty Start Date End Date Francisco Javier Cooley MD 100 [facility] 200 [place] [address] PCP - General Internal Medicine 12/27/21 documented as of this encounter
--- OUTSIDE RECORDS SUMMARY | 2025-01-19 09:49 | XMS_ITS | Encounter Summary ---
Author Organization Healthcare Address [address] 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 Please check monitor and call Beal at [phone] to check for connectivity issues. Thank you. documented in this encounter Plan of Treatment Upcoming Encounters Date Type Department Care Team (Late st Contact Info) Description 04/26/2025 3:40 PM EST Office Visit [facility] [place] [address] [place] [address] Sasha Rico MD [address] [place] [address] 12/01/2025 10:00 AM EDT Office Visit [facility] [address] [place] [address] Angel Avila MD [address] [address] documented as of this encounter Visit Diagnoses [...] documented as of this encounter Care Teams Construction Worker Relationship Specialty Start Date End Date Francisco Javier Cooley MD 100 [place] [address] PCP - General 08/18/20 documented as of this encounter
--- OUTSIDE RECORDS SUMMARY | 2025-01-19 09:49 | XMS_ITS | Encounter Summary ---
[facility] Address [address] [place] [address] Care Team Providers Care Consultant [employer]ury [employer]. Vice President [employer] (Ex ) Name Role Phone Francisco Javier Cooley MD Primary Care Provider [phone] Encounter Details Date Type Department Care Team (Latest Contact Info) Description 11/24/2024 Travel Social History Tobacco Use Types Packs/Day [...] or training? Not on file Preferred Language Saudi Arabian 06/07/2022 PHQ-2 Answer Date Recorded Patient Health Questionnaire-9 Score 13 11/24/2024 Sex and Gender Information Value Date Recorded Sex Assigned at Male 07/15/2024 3:56 PM EDT Legal Sex Male 1:25 PM EDT Gender Identity Not on file Sexual Orientation Straight 07/15/2024 3: 56 PM EDT documented as of this encounter Functional Status * Over the past 2 weeks, how often have you been bothered by any of the following problems? Question Answer Date of Assessment Author Patient Health Questionnaire-2 Score 4 11/06 9:06 AM EDT Brad, Generic * Little interest or pleasure in doing things Answer Date of Assessment Author More than half the days 11/24/2024 9:06 AM EDT Medardo zaldivar, Generic * Feeling down, depressed, or hopeless Answer Date of Assessment Author More than half the days 11/24/2024 9:06 AM EDT Medardo zaldivar Generic * Question Answer Date of Assessment Author Patient Health Questionnaire-9 Score 13 11/06 9:06 AM EDT Brad, Generic * Trouble falling or staying asleep, or sleeping too much Answer Date of Assessment Author Several days 11/24/2024 9:06 AM EDT Brad, Generic * Feeling tired or having little energy Answer Date of Assessment Author More than half the days 11/24/2024 9:06 AM EDT Medardo zaldivar, Generic * Poor appetite or overeating Answer Date of Assessment Author More than half the days 11/24/2024 9:06 AM EDT Medardo zaldivar, Generic * Feeling bad about yourself - [...] the days 11/24/2024 9:06 AM EDT M roberto carlost, Generic * Moving or speaking so slowly that other people could have noticed? Or the opposite - being so fidgety or restless that you have been moving around a lot more than usual. Answer Date of Assessment Author Not at all 11/24/2024 9:06 AM EDT Mychart, Generic * Thoughts that you would be better off or hurting yourself in some way Answer Date of Assessment Author Not at all 11/24/2024 9:06 AM EDT Mychart, Generic * How difficult have these problems made it for you to do your work, take care of things at home, or get along with other people? Answer Date of Assessment Author Somewhat difficult 11/24/2024 9:06 AM EDT Foreignhar t, Generic documented as of this encounter Plan of Treatment Upcoming Encounters Date Type Department Care Team (Late st Contact Info) Description 01/19/2025 3:45 PM EDT Telemedicine [facility] INTERNAL MEDICINE & PEDIATRICS [address] [facility] 200 [place] [address] Francisco Javier Cooley MD [address] [facility] 200 [place] [address] documented as of this encounter [...] on filedocumented in this encounter Care Teams Consultant [employer]. Vice President [employer] (Ex ) Relationship Specialty Start Date End Date Francisco Javier Cooley MD [address] [facility] 200 [place] [id number] PCP - General Internal Medicine 12/27/21 documented as of this encounter
--- OUTSIDE RECORDS SUMMARY | 2025-01-19 09:49 | XMS_ITS | Encounter Summary ---
[facility] [address] [place] [address] Care Team Providers Care Brake Repairer Bus Name Role Phone Francisco Javier Cooley MD Primary Care Provider [phone] Encounter Details Date Type Department Care Team (Late st Contact Info) Description 12/14/2024 Telephone [facility] [address] [place] [address] [place] [address] Francisco Javier Cooley MD 100 [facility] 200 [place] [address] Social History Tobacco Use Types Packs/Day Years [...] or training? Not on file Preferred Language Slovak 06/07/2022 PHQ-2 Answer Date Recorded Patient Health Questionnaire-9 Score 13 11/24/2024 Sex and Gender Information Value Date Recorded Sex Assigned at Male 07/15/2024 3:56 PM EDT Legal Sex Male 1:25 PM EDT Gender Identity Not on file Sexual Orientation Straight 07/15/2024 3: 56 PM EDT documented as of this encounter Miscellaneous Notes * Telephone Encounter - Donna Head RegSched Rep - 12/14/2024 4:00 PM EDT LVM FOR PATIENT TO CALL US BACK TO SCHEDULE MORE APPOINTMENTS WITH JABARI MCCOY. documented in this encounter Plan of Treatment Upcoming Encounters Date Type Department Care Team (Late st Contact Info) Description 01/19/2025 3:45 PM EDT Telemedicine [facility] INTERNAL MEDICINE & PEDIATRICS 100 [facility] 200 [place] [address] Francisco Javier Cooley MD 100 [facility] 200 [place] [address] documented as of this encounter [...] on filedocumented in this encounter Care Teams Brake Repairer Bus Relationship Specialty Start Date End Date Francisco Javier Cooley MD 100 [place] [address] PCP - General Internal Medicine 12/27/21 documented as of this encounter
--- OUTSIDE RECORDS SUMMARY | 2025-01-19 09:49 | XMS_ITS | Encounter Summary ---
Author Organization [facility] Address [address] [place] [address] Care Team Providers Care Registered Nurse Midwife Name Role Phone Francisco Javier Cooley MD Primary Care Provider [phone] Encounter Details Date Type Department Care Team (Latest Contact Info) Description 11/25/2024 Travel Social History Tobacco Use Types Packs/Day [...] place to sleep or slept in a detention (including now)? No 02/17/2023 CAGE ASSESSMENT Answer [...] drink first t ayala in the morning (EYE-MUSIC THERAPIST) to steady your nerves or to get [...] Description 04/26/2025 3:40 PM EST Office Visit [facility] [place] 800 [facility] [place] [address] Sasha Rico MD 800 [place] [address] 12/01/2025 10:00 AM EDT Office Visit [facility] [address] [place] [address] Angel Avila MD [address] [address] documented as of this encounter Visit Diagnoses Not on filedocumented in this encounter Additional Health Concerns Assessment Noted Time A fall risk assessment has been complete d for the patient 01/29/2024 8:56 AM EDT A Body Mass Index follow-up plan has been documented for the patient 08/17/2024 12:57 PM EDT documented as of this encounter Care Teams Registered Nurse Midwife Relationship Specialty Start Date End Date Francisco Javier Cooley MD [address] [address] PCP - General 08/18/20 documented as of this encounter
--- OUTSIDE RECORDS SUMMARY | 2025-01-19 09:49 | XMS_ITS | Encounter Summary ---
Author Organization [facility] Address [address] [place] [address] Care Team Providers Care Heel Cementer Name Role Phone Francisco Javier Cooley MD Primary Care Provider [phone] Encounter Details Date Type Department Care Team (Latest Contact Info) Description 12/02/2024 Travel Social History Tobacco Use Types Packs/Day [...] place to sleep or slept in a fpc (including now)? No 02/17/2023 PHQ-9 Answer Date [...] first t ayala in the morning (EYE-CLINICAL PHARMACY MANAGER) to steady your nerves or to [...] too much Several days 12/02/2024 10:55 AM ELDERT Shanta Alejandro Feeling tired or having little energy Several days 12/02/2024 10:55 AM EDT Shanta Alejandro Poor appetite or overeating Several days 12/02/2024 10 :55 AM ELDERT Shanta Alejandro Feeling bad about yourself - or that you are a failure or have let yourself or your family down Several days 12/02/2024 10:55 AM ELDERT Shanta Alejandro Trouble concentrating on things, such as reading the newspaper or watching television Several days 12/02/2024 10:55 AM ELDERT Shanta Alejandro Moving or speaking so slowly that other people could have noticed? Or the opposite - being so fidgety or restless that you have been moving around a lot more than usual. Not at all 12/02/2024 10:55 AM Shanta Albarado Thoughts that you would be better off or hurting yourself in some way Not at all 12/02/2024 10:55 AM ELDERT Shanta Alejandro Patient Health Questionnaire-9 Score 6 [...] Suicidal Behavior (Lifetime) No 12/02/2024 10:54 AM EDT Shanta Alejandro documented as of this encounter Plan of Treatment Upcoming Encounters Date Type Department Care Team (Late st Contact Info) Description 04/26/2025 3:40 PM EST Office Visit [facility] [place] 800 [facility] [place] [address] Sasha Rico MD 800 [place] [address] 12/01/2025 10:00 AM EDT Office Visit [facility] [address] [place] [address] Angel Avila MD [address] [address] documented as of this encounter Visit Diagnoses Not on filedocumented in this encounter Additional Health Concerns Assessment Noted Time PHQ-9 Depression Total Score: 6 12/03/19 10:55 AM EDT A fall risk assessment has been complete d for the patient 12/02/2024 10:54 AM EDT A Body Mass Index follow-up plan has been documented for the patient 12/02/2024 5:11 PM EDT documented as of this encounter Care Teams Heel Cementer Relationship Specialty Start Date End Date Francisco Javier Cooley MD 100 [facility] 200 [place] [address] PCP - General 08/18/20 documented as of this encounter
--- OUTSIDE RECORDS SUMMARY | 2025-01-19 09:50 | XMS_ITS | Encounter Summary ---
[facility] [address] [place] [address] Care Team Providers Care Manager Skilled Name Role Phone Francisco Javier Cooley MD Primary Care Provider [phone] Reason for Visit * Reason Onset Date Comments Error 11/11/2016 Encounter Details Date Type Department Care Team (Latest Contact Info) Description 11/11/2016 Anticoagulation Visit [facility] [address] [place] [address] [place] [address] Kecia Iglesias, RN ERRONEOUS ENCOUNTER--DISREGA RD (Primary Dx); Atrial fibrillation, unspecified type Social History Tobacco Use Types Packs/Day Years Used Date Smoking Tobacco: Never Smokeless Tobacco: Never Alcohol Use Standard Drinks/Week Comments No 0 (1 standard drink = 0.6 oz pur e alcohol) on occasion Sex and Gender Information Value Date Recorded Sex Assigned at Male 07/15/2024 3:56 PM EDT Legal Sex Male 1:25 PM EDT Gender Identity Not on file Sexual Orientation Straight 07/15/2024 3: 56 PM EDT documented as of this encounter Plan of Treatment Upcoming Encounters Date Type Department Care Team (Late st Contact Info) Description 01/19/2025 3:45 PM EDT Telemedicine [facility] INTERNAL MEDICINE & PEDIATRICS 100 [facility] 200 [place] [address] Francisco Javier Cooley MD 100 [facility] 200 [place] [address] documented as of this encounter [...] his medication as well as lifestyle modification documented as of this encounter Visit Diagnoses Diagnosis ERRONEOUS ENCOUNTER--DISREGARD- Primary Atrial fibrillation, unspecified type documented in this encounter Care Teams Manager Skilled Relationship Specialty Start Date End Date Francisco Javier Cooley MD 100 [place] [address] PCP - General Internal Medicine 12/27/21 documented as of this encounter
--- OUTSIDE RECORDS SUMMARY | 2025-01-19 09:50 | XMS_ITS | Encounter Summary ---
[facility] Address [address] [place] [id number] Care Team Providers Care Ship Pilot Dispatcher Name Role Phone Francisco Javier Cooley MD Primary Care Provider [phone] Encounter Details Date Type Department Care Team (Late Contact Info) Description 10/28/2016 Telephone [facility] 1720 [facility] 606 [place] [address] Emi Isaacs, PharmD [address] [place] [id number] Social History Tobacco Use Types Packs/Day Years [...] Encounters Date Type Department Care Team (Late Contact Info) Description 01/19/2025 3:45 PM EDT Telemedicine [facility] INTERNAL MEDICINE & PEDIATRICS 100 [facility] 200 [place] [address] Francisco Javier Cooley MD 100 [facility] [address] [place] [address] documented as of this encounter [...] on filedocumented in this encounter Care Teams Ship Pilot Dispatcher Relationship Specialty Start Date End Date Francisco Javier Cooley MD 100 [place] [address] PCP - General Internal Medicine 12/27/21 documented as of this encounter
--- OUTSIDE RECORDS SUMMARY | 2025-01-19 09:50 | XMS_ITS | Encounter Summary ---
Author Organization [facility] Address [address] [place] [address] Care Team Providers Care Briar Shop Supervisor Name Role Phone Francisco Javier Cooley MD Primary Care Provider [phone] Encounter Details Date Type Department Care Team (Latest Contact Info) Description 01/06/2025 Travel Social History Tobacco Use Types Packs/Day [...] place to sleep or slept in a fdc (including now)? No 02/17/2023 PHQ-9 Answer Date [...] drink first t ayala in the morning (EYE-HYDRAULIC OPERATOR) to steady your nerves or to [...] Description 04/26/2025 3:40 PM EST Office Visit [facility] [place] D[place] [address] [place] [address]. [address] [place] [address] Sasha Rico MD [address] [place] [phone] 12/01/2025 10:00 AM EDT Office Visit [facility] [address] [place] [phone] Angel Avila MD [address] [phone] documented as of this encounter Visit Diagnoses [...] documented as of this encounter Care Teams Briar Shop Supervisor Relationship Specialty Start Date End Date Francisco Javier Cooley MD 100 [facility] 200 [place] [address] PCP - General 08/18/20 documented as of this encounter
--- OUTSIDE RECORDS SUMMARY | 2025-01-19 09:50 | XMS_ITS | Encounter Summary ---
Author Organization [facility] Address [address] [place] [address] Care Team Providers Care Rail Assembler Name Role Phone Francisco Javier Cooley MD Primary Care Provider [phone] Reason for Visit * Reason Onset Date Comments CALLBACK 12/28/2024 Encounter Details Date Type Department Care Team (Late st Contact Info) Description 12/28/2024 Telephone [facility] INTERNAL MEDICINE & PEDIATRICS 100 [facility] 200 [place] [address] Francisco Javier Cooley MD 100 [facility] 200 [place] [address] CALLBACK Social History Tobacco Use Types Packs/Day Years [...] or training? Not on file Preferred Language Nepali 06/07/2022 PHQ-2 Answer Date Recorded Patient Health Questionnaire-9 Score 13 11/24/2024 Sex and Gender Information Value Date Recorded Sex Assigned at Male 07/15/2024 3:56 PM EDT Legal Sex Male 1:25 PM EDT Gender Identity Not on file Sexual Orientation Straight 07/15/2024 3: 56 PM EDT documented as of this encounter Miscellaneous Notes * Telephone Encounter - Layo Elizabeth MD - 12/28/2024 1:42 PM EDT Patient hung up prior to being transferred to my phone. I called patient back who answered and reported that he is quite depressed and is having some thoughts of hurting myself but they are going away. Reports he does not have access to anything to hurt himself with and does not have any active plans. He has made an appointment to meet with his therapist at 4pm. I counseled patient that we are here to help him in anyway we can and provided supportive listening. Discussed with patient that if he has any pervasive thoughts of self harm or feels that he is a danger to himself to immediately call 911 and seek emergency care. HE voiced understanding and appreciation. Dr. Elizabeth * Telephone Encounter - Eun Mayen MA - 12/28/2024 1:36 PM EDT Spoke with patient and he stated he has thoughts of hurting himself but no plans. I advised patientto go to the ER but he refused. I tried to transfer patient to the covering provider due to Dr. Cooley being out of the office. Patient has appointment with behavioral today at 4pm. Routing to covering provider and Dr. Cooley * Telephone Encounter - Aylin Ramon RegSched Rep - 12/28/2024 1:03 PM EDT Caller: Darrin Vargas Relationship to patient: Self Best call back number: [phone] Patient is needing: PATIENT STATES HE IS HAVING MENTAL HEALTH ISSUES AND NEEDS TO SPEAK TO PCP URGENTLY. documented in this encounter Plan of Treatment Upcoming Encounters Date Type Department Care Team (Late st Contact Info) Description 01/19/2025 3:45 PM EDT Telemedicine [facility] INTERNAL MEDICINE & PEDIATRICS 100 [facility] 200 [place] [address] Francisco Javier Cooley MD 100 [facility] 200 [place] [address] documented as of this encounter Goals Goal [...] well as lifestyle modification Count carbohydrates Diet Francisco Javier Richmond MD Note: Patient is trying to be more compliant on taking the medication and diet Patient is now wanting to consider bariatric surgery. We will refer He is also exercising more ie walking documented as of this encounter Visit Diagnoses Not on filedocumented in this encounter Care Teams Rail Assembler Relationship Specialty Start Date End Date Francisco Javier Cooley MD [address] [address] PCP - General Internal Medicine 12/27/21 documented as of this encounter
--- OUTSIDE RECORDS SUMMARY | 2025-01-19 09:50 | XMS_ITS | Encounter Summary ---
Author Organization [facility] Address [address] [place] [address] Care Team Providers Care Aeronautical Engineering Teacher Name Role Phone Francisco Javier Cooley MD Primary Care Provider [phone] Reason for Referral * Consultation (Routine) - Closed Specialty Diagnoses / Procedures Referred By Contac t Referred To Contact Cardiology Diagnoses Longstanding persistent atrial fibrillation (CMS/HCC) Francisco Javier Cooley MD [address] [address] Phone: tel: fax: Referral ID Status Reason Start Date Expiration Date V isits Requested Visits Authorized [id number] Closed Specialty Services Required 12/31/2021 07/02/2023 1 1 Encounter Details Date Type Department Care Team (Late st Contact Info) Description 12/31/2021 Community [facility] [address] [place] [address] Francisco Javier Cooley MD [address] [place] [address] Longstanding persistent atrial fibrillation (CMS/HCC) (Primary [...] Description 04/26/2025 3:40 PM EST Office Visit [facility] [place] Dany [address] [place] [address] Sasha Rico MD [address] [place] [address] 12/01/2025 10:00 AM EDT Office Visit [facility] [address] [place] [address] Angel Avila MD [address] [phone] Scheduled Referrals Name Type Priority Associated Diagnoses [...] documented as of this encounter Care Teams Aeronautical Engineering Teacher Relationship Specialty Start Date End Date Francisco Javier Cooley MD 100 [facility] 200 [place] [address] PCP - General 08/18/20 documented as of this encounter
--- OUTSIDE RECORDS SUMMARY | 2025-01-19 09:50 | XMS_ITS | Encounter Summary ---
Author Organization [facility] Address [address] [place] [address] Care Team Providers Care Etl Lead Name Role Phone Francisco Javier Petersen MD Primary Care Provider [phone] Reason for Visit * Reason Onset Date Comments Appointment 01/05/2025 Encounter Details Date Type Department Care Team (Late st Contact Info) Description 01/05/[address] [facility] INTERNAL MEDICINE & PEDIATRICS 100 [facility] 200 [place] [address] Francisco Javier Petersen MD 100 [facility] 200 [place] [address] Appointment Social History Tobacco Use Types Packs/Day Years [...] or training? Not on file Preferred Language Eritrean 06/07/2022 PHQ-2 Answer Date Recorded Patient Health Questionnaire-9 Score 13 11/24/2024 Sex and Gender Information Value Date Recorded Sex Assigned at Male 07/15/2024 3:56 PM EDT Legal Sex Male 1:25 PM EDT Gender Identity Not on file Sexual Orientation Straight 07/15/2024 3: 56 PM EDT documented as of this encounter Miscellaneous Notes * Telephone Encounter - Liseth Miramontes - 01/10/2025 9:05 AM EDT Patient notified and scheduled. * Telephone Encounter - Liseth Miramontes - 01/10/2025 8:16 AM EDT The day you want to schedule him you have a provider meeting. Patient wants this visit to be virtual. Please advise where to schedule. * Telephone Encounter - Liseth Miramontes - 01/05/2025 9:44 AM EDT Please advise where to schedule patient? * Telephone Encounter - Elvie Oglesby RegSched Rep - 01/05/2025 9:08 AM EDT Caller: Darrin Vargas Relationship to patient: Self Best call back number: [phone] Chief complaint: DEPRESSION Type of visit: OFFICE Requested date: BEFORE 01/26/25 If rescheduling, when is the original appointment: 01/28/25 Additional notes:PATIENT STATES HE IS LEAVING THE STATE FOR A WHILE ON 01/27/25 AND WOULD LIKE TO SEE IF HE CAN GET IN WITH DR. PETERSEN BEFORE THEN. documented in this encounter Plan of Treatment Upcoming Encounters Date Type Department Care Team (Late st Contact Info) Description 01/19/2025 3:[address] [facility] INTERNAL MEDICINE & PEDIATRICS 100 [facility] 200 [place] [phone] Francisco Javier Petersen MD 100 [facility] 200 [place] [address] documented as of this encounter Goals Goal Patient Goal Type Associated Problems Recent Progress Patient-Stated? Author Reduce calorie intake to 2000 calories per day Diet No Francisco Javier Petersen MD Note: Patient says that he has been improving his diet by decreasing his calories and incorporating some exercise by walking. He is more motivated to control his diabetes because he is seeing the response with a sugars. I encouraged him to continue the good job with taking his medication as well as lifestyle modification Count carbohydrates Diet No Francisco Javier Petersen MD Note: Patient is trying to be more compliant on taking the medication and diet Patient is now wanting to consider bariatric surgery. We will refer He is also exercising more ie walking documented as of this encounter Visit Diagnoses Not on filedocumented in this encounter Care Teams Etl Lead Relationship Specialty Start Date End Date Francisco Javier Petersen MD 100 [facility] 200 [place] [address] PCP - General Internal Medicine 12/27/21 documented as of this encounter
--- OUTSIDE RECORDS SUMMARY | 2025-01-19 09:50 | XMS_ITS | Encounter Summary ---
Author Organization [facility] Address [address] [place] [address] Care Team Providers Care Ship'S Cook Name Role Phone Francisco Javier Cooley MD Primary Care Provider [phone] Encounter Details Date Type Department Care Team (Late Contact Info) Description 12/27/2016 Telephone [facility] 17[address] [facility] [address] [place] [address] Sher Colunga Social History Tobacco Use Types Packs/Day Years [...] [facility] INTERNAL MEDICINE & PEDIATRICS 100 [facility] 200 [place] [address] Francisco Javier Cooley MD 100 [facility] 200 [place] [address] documented as of this encounter [...] on filedocumented in this encounter Care Teams Ship'S Cook Relationship Specialty Start Date End Date Francisco Javier Cooley MD 100 [place] [address] PCP - General Internal Medicine 12/27/21 documented as of this encounter
--- OUTSIDE RECORDS SUMMARY | 2025-01-19 09:50 | XMS_ITS | Encounter Summary ---
Author Organization [facility] Address [address] [place] [address] Care Team Providers Care Energy Conservation Engineer Name Role Phone Francisco Javier Cooley MD Primary Care Provider [phone] Reason for Visit * Reason Onset Date Comments MOUNIKA BASILIO - REQUEST FOR TESTOSTERONE Encounter Details Date Type Department Care Team (Late st Contact Info) Description 01/12/2025 Telephone [facility] [address] [place] [address] [address] [place] [address] Mounika Basilio APRN 1760 [facility] [address] [place] [address] MOUNIKA BASILIO - REQUEST FOR TESTOSTERONE Social History Tobacco Use Types Packs/Day Years [...] or training? Not on file Preferred Language Spanish 06/07/2022 PHQ-2 Answer Date Recorded Patient Health Questionnaire-9 Score 13 11/24/2024 Sex and Gender Information Value Date Recorded Sex Assigned at Male 07/15/2024 3:56 PM EDT Legal Sex Male 1:25 PM EDT Gender Identity Not on file Sexual Orientation Straight 07/15/2024 3: 56 PM EDT documented as of this encounter Miscellaneous Notes * Telephone Encounter - Petrona Cummings MA - 01/12/2025 3:54 PM EDT Called and spoke with patient, relayed Yasmine message. 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 * Telephone Encounter - Tiffanie Dorado RegSched Rep - 01/12/2025 9:20 AM EDT Caller: PT Relationship to patient: SELF Best call back number: [phone] Patient is needing: PT WANTS TO SPEAK TO MOUNIKA ABOUT PRESCRIBING HIM TESTOSTERONE. SAYS HE HAS TAKEN IT IN THE PAST AND IT HELPED HIM. STATES HE IS FEELING VERY WEAK AND TIRED. ALSO, WANTED TO LET HER KNOW THAT HE AND HIS . PLEASE CALL PT TO ADVISE NEXT STEPS. PHARMACY IS: [facility] [phone] FAX: [phone] documented in this encounter Plan of Treatment Upcoming Encounters Date Type Department Care Team (Late st Contact Info) Description 01/19/2025 3:45 PM EDT Telemedicine [facility] INTERNAL MEDICINE & PEDIATRICS 100 [facility] 200 [place] [address] Francisco Javier Cooley MD 100 [facility] 200 [place] [address] documented as of this encounter [...] on filedocumented in this encounter Care Teams Energy Conservation Engineer Relationship Specialty Start Date End Date Francisco Javier Cooley MD 100 [facility] 200 [place] [address] PCP - General Internal Medicine 12/27/21 documented as of this encounter
--- OUTSIDE RECORDS SUMMARY | 2025-01-19 09:50 | XMS_ITS | Encounter Summary ---
Author Organization [facility] Address [address] [place] [address] Care Team Providers Care Unit Manager Name Role Phone Francisco Javier Cooley MD Primary Care Provider [phone] Encounter Details Date Type Department Care Team (Late st Contact Info) Description 07/16/2024 Results Follow-Up [facility] INTERNAL MEDICINE & PEDIATRICS 100 [facility] 200 [place] [address] Layo Elizabeth MD 100 [facility] 200 [place] [address] Social History Tobacco Use Types Packs/Day Years Used Date Smoking Tobacco: Never Smokeless Tobacco: Never Alcohol Use Standard Drinks/Week Comments No 0 (1 standard drink = 0.6 oz pur e alcohol) on occasion PHQ-2 Answer Date Recorded Retired PHQ-9: Brief Depression Severity Measure Score 0 09/30/2022 Abuse Screen Answer Date Recorded Feels Unsafe [...] or training? Not on file Preferred Language Malay 06/07/2022 PHQ-2 Answer Date Recorded Retired PHQ-9: Brief Depression Severity Measure Score 0 09/30/2023 Sex and Gender Information Value Date Recorded Sex Assigned at Male 07/15/2024 3:56 PM EDT Legal Sex Male 1:25 PM EDT Gender Identity Not on file Sexual Orientation Straight 07/15/2024 3: 56 PM EDT documented as of this encounter Plan of Treatment Upcoming Encounters Date Type Department Care Team (Late st Contact Info) Description 01/19/2025 3:45 PM EDT Telemedicine [facility] INTERNAL MEDICINE & PEDIATRICS 100 [facility] 200 [place] [phone] Francisco Javier Cooley MD 100 [facility] 200 [place] [address] documented as of this encounter [...] on filedocumented in this encounter Care Teams Unit Manager Relationship Specialty Start Date End Date Francisco Javier Cooley MD 100 [facility] 200 [place] [address] PCP - General Internal Medicine 12/27/21 documented as of this encounter
--- OUTSIDE RECORDS SUMMARY | 2025-01-19 09:50 | XMS_ITS | Encounter Summary ---
Author Organization [facility] Address [address] [place] [id number] Care Team Providers Care Ip Technology Transactions Attorney Name Role Phone Francisco Javier Cooley MD Primary Care Provider [phone] Encounter Details Date Type Department Care Team (Late Contact Info) Description 11/07/2016 Telephone [facility]IC 1720 [facility] 606 [place] [address] Emi Isaacs, PharmD [address] [place] [id number] Social History Tobacco Use Types Packs/Day Years [...] 01/19/2025 3:45 PM EDT Telemedicine [facility] INTERNAL MEDICINE & PEDIATRICS 100 [facility] 200 [place] [address] Francisco Javier Cooley MD 100 [facility] [address] [place] [address] documented as of this encounter [...] on filedocumented in this encounter Care Teams Ip Technology Transactions Attorney Relationship Specialty Start Date End Date Francisco Javier Cooley MD 100 [place] [address] PCP - General Internal Medicine 12/27/21 documented as of this encounter
--- OUTSIDE RECORDS SUMMARY | 2025-01-19 09:50 | XMS_ITS | Clinical Summary ---
Author Organization [facility] Address [address] [place] [address] Care Team Providers Care Fiber Analyst Name Role Phone Francisco Javier Cooley MD Primary Care Provider [phone] Allergies Active Allergy Reactions Criticality Noted Date Comments Penicillins Shortness Of Breath High 08/21/2015 Medications * This document contains information received from the source organization and may not represent a complete record from that organization. propafenone (RYTHMOL) 300 MG tablet Take by mouth. Pt states daily prn Active carvedilol (COREG) 25 MG tabletIndications: Essential (primary) hypertension Take 1 tablet by mouth 2 (Two) Times a Day With Meals. 180 tablet 2 12/04/19 23 Active multivitamin with minerals tablet tablet Take 1 tablet by mouth Daily. 90 tablet 3 03/12/20 23 Active acetaminophen (TYLENOL) 325 MG tablet Take 2 tablets by mouth Every 6 (Six) Hours As Needed. 12/29/19 23 Active fenofibrate (TRICOR) 145 MG tablet Take 1 tablet by mouth Daily. 11/06/19 23 Active sildenafil (VIAGRA) 100 MG tabletIndications: Erectile dysfunction, unspecified erectile dysfunction type TAKE 1 TABLET BY MOUTH DAILY NEEDED FOR ERECTILE DYSFUNCTION 8 tablet 3 10/15/19 24 Active sotalol (BETAPACE) 120 MG tablet Take 1 tablet by mouth 2 (Two) Times a Day. Active methylPREDNISolone (MEDROL) 4 MG dose packIndications:Vi ral laryngitis Take as directed on package instructions. 21 tablet 07/17/19 25 Active Additional Information Patient not taking.Reported on 11/24/2024 pravastatin (PRAVACHOL) 80 MG tabletIndications: Hyperlipidemia, unspecified hyperlipidemia type TAKE ONE TABLET BY MOUTH EVERY EVENING 90 tablet 1 08/28/19 25 Active losartan (COZAAR) 50 MG tablet TAKE ONE TABLET BY MOUTH EVERY DAY 90 tablet 1 08/28/19 25 Active gabapentin (NEURONTIN) 300 MG capsuleIndications :Peripheral polyneuropathy TAKE ONE CAPSULE BY MOUTH THREE TIMES DAILY MAY CAUSE DROWSINESS 90 capsule 2 09/16/19 25 Active ezetimibe (ZETIA) 10 MG tabletIndications: Hyperlipidemia, unspecified hyperlipidemia type Take 1 tablet by mouth Daily. 90 tablet 2 09/17/19 25 Active metFORMIN (GLUCOPHAGE) 500 MG tablet Take 1 tablet by mouth 2 (Two) Times a Day With Meals. 08/12/19 25 026 Active apixaban (ELIQUIS) 5 MG tablet tabletIndications: Longstanding persistent atrial fibrillation Take 1 tablet by mouth 2 (Two) Times a Day. 180 tablet 3 11/25/19 25 Active vilazodone (VIIBRYD) 20 MG tablet tabletIndications: Moderate episode of recurrent major depressive disorder Take 1 tablet by mouth Daily. 90 tablet 1 11/25/19 25 Active allopurinol (ZYLOPRIM) 300 MG tabletIndications: Chronic gout without tophus, unspecified cause, unspecified site TAKE ONE TABLET BY MOUTH EVERY DAY 90 tablet 2 12/10/19 25 Active Active Problems Problem Noted Date Diagnosed Date Adjustment disorder with mixed anxiety and depre ssed mood 2024 Encounter for screening colonoscopy 01/15/2022 Overview (01/15/2022): Added automatically from request for surgery [id number] Adiposity 01/12/2016 Diarrhea 12/22/2015 Gastroenteritis 12/22/2015 Anxiety 11/03/2015 Atrial fibrillation 11/03/2015 Overview (11/10/2015): Paroxysmal atrial fibrillation A. Remotely commented to warfarin and sotalol therapy, relatively noncompliant. Cardiomyopathy 11/03/2015 Overview (11/10/2015): A. 2008 recorded catheterization at outside hospital with nonischemic cardiomyopathy B. 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 Date Type Department Care Team Description 01/14/2025 [facility] UROLOGY [address] [facility] [address] [place] [address] Mounika Basilio APRN 01/12/2025 [facility] UROLOGY [address] [facility] [address] [place] [address] Mounika Basilio, INSIDE SALES ASSOCIATE MOUNIKA BASILIO - REQUEST FOR TESTOSTERONE 01/05/2025 [facility] INTERNAL MEDICINE & PEDIATRICS [address] [facility] [address] [place] [address] Francisco Javier Cooley MD Appointment 12/28/2024 [facility] INTERNAL MEDICINE & PEDIATRICS [address] [facility] [address] [place] [address] Francisco Javier Cooley MD CALLBACK 12/14/2024 [facility] PRIMARY CARE [address] [place] [address] [place] [address] Francisco Javier Cooley MD 12/09/2024 Refill [facility] INTERNAL MEDICINE & PEDIATRICS [address] [facility] [address] [place] [address] Francisco Javier Cooley MD Chronic gout without tophus, unspecified cause, unspecified site 11/29/2024 Telephone [facility] PRIMARY [facility]ARE [address] [place] [address] [place] [address] Ashleigh Ley LCSW 11/24/2024 3:30 PM EDT Office Visit [facility]INE [facility]EDIATRICS [address] [facility] [address] [place] [address] Francisco Javier Cooley MD Moderate episode of recurrent major depressive disorder (Primary Dx); Chronic gout without tophus, unspecified cause, unspecified site; Longstanding persistent atrial fibrillation 11/24/2024 Travel 11/11/2024 External [facility] [facility] [address] [facility] [place] [address] Pharmacy, [employer] 10/28/2024 3:30 PM EDT Telemedicine [facility] UROLOGY [address] [facility] [address] [place] [address] Mounika Basilio APRN Erectile dysfunction, unspecified erectile dysfunction type (Primary Dx) 10/21/2024 11:15 AM EDT Office Visit [facility] INTERNAL MEDICINE & PEDIATRICS [address] [facility] [address] [place] [address] Francisco Javier Cooley MD Severe episode of recurrent major depressive disorder, without psychotic features (Primary Dx); Marital stress; Erectile dysfunction, unspecified erectile dysfunction type 10/21/2024 Travel from Last 3 Months Immunizations Immunization Administration Dates Next Due COVID-19 ([employer]) BIVALENT 12+YRS 01/23/2022 Flu Vaccine Quad PF >36MO 05/19/2017 FluMist 2-49yrs 01/06/2016 Fluzone (or Fluarix & Flulav al for VFC) >6mos 03/26/2023,01/16/2022,02/12/2018,05/19 Hepatitis A 02/12/2018 Influenza Inj MDCK Preserative Free 01/30/2024 Influenza, Unspecified 01/16/2022,11/11/2018, MMR 03/29/2024,02/16/2024 Pneumococcal Conjugate 20-Va lent (PCV20) 06/04/2023 Pneumococcal Polysaccharide (PPSV23) 02/12/2018, 12/19/2015 Shingrix 11/11/2018 Tdap 02/16/2024 Family History Medical History Relation Name Comments Early Brother 1 Hector Carvajalamy Early Brother 2 [place]ector [place] Diabetes Father [place] Heart attack Father [place] Heart disease Father [place] Heart failure Father [place] Hypertension Father [place] Obesity Father [place] Stroke Father Freeborn Alicia Heart disease Mother Whitney Alicia Hypertension Mother Whitney Alicia Obesity Mother Whitney Alicia Stroke Mother Whitney Alicia Coronary artery disease Other Family Diabetes Other Family DM Obesity Other Family exogenous Relation Name Status Comments Brother 1 Hector [place] Brother 2 Hector Alicia Alive Father [place] Mother Whitney Alicia Alive Other Family Family history (unspecified) Social History Tobacco Use Types Packs/Day Years [...] or training? Not on file Preferred Language Niuean 06/07/2022 PHQ-2 Answer Date Recorded Patient Health Questionnaire-9 Score 13 11/24/2024 Sex and Gender Information Value Date Recorded Sex Assigned at Male 07/15/2024 3:56 PM EDT Legal Sex Male 1:25 PM EDT Gender Identity Not on file Sexual Orientation Straight 07/15/2024 3: 56 PM EDT Last Filed Vital Signs Vital Sign Reading Time Taken Comments Blood Pressure 122/74 11/24/2024 3:28 PM EDT Pulse 96 11/24/2024 3:28 PM EDT Temperature 36.6 C (97.8 F) 11/24/2024 3:28 PM EDT Respiratory Rate 16 11/24/2024 3:28 PM EDT Oxygen Saturation 98% 07/16/2024 1:59 PM EDT Inhaled Oxygen Concentration - - Weight 105 kg (232 lb 2 oz) 11/24/2024 3:28 PM E DT Height 173.6 cm (5' 8.35 ) 09/30/2023 8:53 AM ED T Body Mass Index 34.94 09/30/2023 8:53 AM EDT Plan of Treatment Upcoming Encounters Date Type Department Care Team (Late st Contact Info) Description 01/19/2025 3:45 PM EDT Telemedicine [facility] INTERNAL MEDICINE & PEDIATRICS [address] [facility] [address] [place] [address] Francisco Javier Cooley MD [address] [facility] [address] [place] [address] Health Maintenance Due Date Last Done Comments COLOGUARD 10/21/2008 COLON CANCER SCREENING 5 YEAR SIGMOIDOSCOPY 10/21/2008 CT COLONOGRAPHY 10/21/2008 FECAL OCCULT BLOOD TEST 10/21/2008 FIT Testing (1 year) 10/21/2008 PT PLAN OF CARE 10/02/2022 07/04/2022 DIABETIC FOOT EXAM 03/04/2024 03/04/2023, 10/09/2015 INFLUENZA VACCINE 01/28/2025 01/30/2024, , 01/16/2022, Additional history exists Postponed from 11/05/2024 (Product Unavailable) ZOSTER VACCINE (2 of 2) 01/28/2025 11/11/2018 Post poned from 01/06/2019 (Product Unavailable) ANNUAL WELLNESS VISIT 02/14/2025 09/30/2023, 024 Postponed from 09/29/2024 (Product Unavailable) URINE MICROALBUMIN-CREATININE RATIO (uACR) 02/14/2025 Postponed from 10/21/1973 (Product Unavailable) HEMOGLOBIN A1C 06/04/2025 12/02/2024, 11/06, 08/11/2024, Additional history exists DIABETIC EYE EXAM 07/06/2025 07/06/2024, (Patient-Reported (Performed Externally)) LIPID PANEL 12/02/2025 12/02/2024, 11/06, 01/29/2024, Additional history exists COLONOSCOPY 06/14/2032 06/14/2022, 06/14/2022 COLORECTAL CANCER SCREENING 06/14/2032 TDAP/TD VACCINES (3 - Td or Tdap) 02/15/2034 02/16/2024, 07/03/2016 (Declined) HEPATITIS C SCREENING Completed 06/29/2022, 017 Pneumococcal Vaccine 50+ Completed 024, 02/12/2018, 12/19/2015 [facility] Discontinued Goals Goal Patient Goal Type Associated Problems Recent Progress Patient-Stated? Author Reduce calorie intake to 2000 calories per day Diet Francisco Javier Richmond MD Note: Patient says that he has [...] He is also exercising more ie walking Medical Devices Implanted Type Area Hot Dog Vender Device Identifier Shelf Expiration Date Model / Serial / Lot Icd-08/16/2015 Implanted:08/15 by Gagan Louis MD (Quantity not on file) ICD [employer] VR [id number] / [id number] / Procedures Procedure Name Priority Date/Time Associated Diagnosis Comments SCANNED - EYE EXAM 07/06/2024 LIPID PANEL Routine 09/30/2023 9:38 AM EDT Lipid screening COLONOSCOPY 06/14/2022 9:28 AM EST POCT GLYCOSYLATED HEMOGLOBIN (HGB A1C) Routine 01/16/2022 11:45 AM EDT Type 2 diabetes mellitus without complication, with long-term current use of insulin SCANNED - INFLUENZA 01/16/2022 HEPATITIS C ANTIBODY Routine 07/03/2016 10:32 AM EDT Need for hepatitis C screening test from Last 3 Months or Most Recently Relevant to Health Maintenance Results * EYE EXAM SCANNED (07/06/2024) Anatomical Region Laterality Modality Other Francisco Javier Cooley MD CHART REVIEW TABS Final Resul t * COLONOSCOPY (06/14/2022 9:28 AM EST) Balwinder Johnson MD INTERFACE NEEDS Final Resu lt * SCANNED - INFLUENZA (01/16/2022) Francisco Javier Cooley MD CHART REVIEW TABS Final Resul t * Hepatitis C Antibody (07/03/2016 10:32 AM EDT) Hepatitis C Ab Non-Reacti ve Non-Reacti ve 07/03/2016 2:16 PM EDT [facility] Blood Left upper arm structure / Unknown Venipuncture / Unknown 07/03/2016 10:32 AM EDT 07/03/2016 10:35 AM EDT us Geovanna Willis INSIDE SALES ASSOCIATE LAB BLOOD ORDERABLES Final Res ult [facility]
[address] [place] [address], from Last 3 Months or Most Recently Relevant to Health Maintenance Insurance [employer] HMO Care Teams Fiber Analyst Relationship Specialty Start Date End Date Francisco Javier Cooley MD [address] [facility] [address] [place] [address] PCP - General Internal Medicine 12/27/21
--- OUTSIDE RECORDS SUMMARY | 2025-01-19 09:50 | XMS_ITS | Patient Health Record ---
Author Organization [facility]. Address [address] [facility] [address] [place] [address] Support Name Relationship Address Phone Darrin Vargas Guarantor Unknown Reason For Referral No Information Medications Medication SIG (Take, Route, Frequency, Duration) Notes Start Date End Date Status Famotidine ; Duration: -2 *Pick strength-f orm from Medispan for eRX* 05/27/2019 Active LANTUS U-100 INSULIN ; Duration: -2 *Reorder fr om Medispan for eRx and Interaction Alerts* 05/27/2019 Active Pravastatin Sodium ; Duration: -2 *Pick strengt h-form from Medispan for eRX* 05/27/2019 Active Vitamin D3 ; Duration: -2 *Pick strength-f orm from Medispan for eRX* 05/27/2019 Active LOSARTAN ; Duration: -2 *Reorder from Medispan for eRx and Interaction Alerts* 05/27/2019 Active Carvedilol ; Duration: -2 *Pick strength-f orm from Medispan for eRX* 05/27/2019 Active Allopurinol ; Duration: -2 *Pick strength-f orm from Medispan for eRX* 05/27/2019 Active Warfarin Sodium ; Duration: -2 *Pick strength-f orm from Medispan for eRX* 05/27/2019 Active Social History Social History Additional Details Category Social Info Options Details Migrated Social History Migrated Social History Smoking : Select , Recorded Date: 05/27/2019 Problems Problem Type SNOMED Code ICD Code Onset Dates Problem Status W/U Status Risk Notes Problem Morbid obesity (disorder) (605801924) Morbid (severe) obesity due to excess calories (E66.01) 020 Active confirmed Problem Degeneration of lumb ar intervertebral disc (37407508) Other intervertebral disc degeneration, lumbar region (M51.36) 020 Active confirmed Problem Lumbosacral radiculopathy (6468196) Radiculopathy, lumbosacral region (M54.17) 020 Active confirmed Problem Atrial fibrillation (15417204) Unspecified atrial fibrillation (I48.91) 020 Active confirmed on a blood thinner Problem Pure hypercholesterolemia (690141897) Pure hypercholesterol emia, unspecified (E78.00) 020 Active confirmed Plan Of Treatment No Information Insurance Providers Payer Name Payer Address Payer Phone Subscriber Number Group Number Insured Name Patient Relationship to Insured Coverage Start Date Coverage End Date [facility] [address] [address] [place], [place] [id number] Darrin Vargas 0
--- OUTSIDE RECORDS SUMMARY | 2025-01-19 09:50 | XMS_ITS | Encounter Summary ---
Author Organization [facility] Address [address] [place] [address] Care Team Providers Care Administrative Secretary Name Role Phone Francisco Javier Cooley MD Primary Care Provider [phone] Encounter Details Date Type Department Care Team (Late st Contact Info) Description 01/14/2025 Telephone [facility] UROLOGY [address] [place] [id number] Breann Ortiz APRN [address] [facility] [address] [place] [address] Social History Tobacco Use Types Packs/Day Years [...] or training? Not on file Preferred Language Macanese 06/07/2022 PHQ-2 Answer Date Recorded Patient Health Questionnaire-9 Score 13 11/24/2024 Sex and Gender Information Value Date Recorded Sex Assigned at Male 07/15/2024 3:56 PM EDT Legal Sex Male 1:25 PM EDT Gender Identity Not on file Sexual Orientation Straight 07/15/2024 3: 56 PM EDT documented as of this encounter Miscellaneous Notes * Telephone Encounter - Petrona Cummings MA - 01/14/2025 9:24 AM EDT Order has been faxed, and delivered on our end. Called and let patient know * Telephone Encounter - Angely Lombardo RegSched Rep - 01/14/2025 9:10 AM EDT Caller: Darrin Vargas Relationship: Self Best call back number: [phone] What form or medical record are you requesting: LAB ORDER TESTOSTERONE Who is requesting this form or medical record from you: [facility] How would you like to receive the form or medical records (pick-up, mail, fax): FAX If fax, what is the fax number: [phone] Timeframe paperwork needed: REJI. PT WILL GO FRIDAY Additional notes: THANK YOU documented in this encounter Plan of Treatment Upcoming Encounters Date Type Department Care Team (Late st Contact Info) Description 01/19/2025 3:45 PM EDT Telemedicine [facility] INTERNAL MEDICINE & PEDIATRICS [address] [facility] [address] [place] [address] Francisco Javier Cooley MD [address] [facility] [address] [place] [address] documented as of this encounter Goals Goal [...] on filedocumented in this encounter Care Teams Administrative Secretary Relationship Specialty Start Date End Date Francisco Javier Cooley MD [address] [facility] [address] [place] [address] PCP - General Internal Medicine 12/27/21 documented as of this encounter
[2025-01-20 12:12] LABS: Testosterone,Total 694 ng/dL (264-916)
== END 2025-01-19 23:59 | disposition home or self-care (01) ==
LOC: LAB 09:38
PROVIDERS: PCP Pediatrics; Visit Provider Nurse Practitioner
DX: N52.9 Male erectile dysfunction, unspecified (principal)
CPT/HCPCS: 36415; 84403